=== PATIENT | female | born 1980 | race Caucasian/White ===

== ENCOUNTER 2024-05-16 18:16 | Observation (INO) ==
--- NOTE | 2024-05-16 18:22 | ED Triage Note ---
Date of Service May 16, 2024 Provider in Triage Author: Salas Fang History of Present Illness This patient was briefly evaluated while in triage. An abbreviated physical exam was performed. This patient is a 43-year-old Female who presents to the ED for evaluation called back to ED by ED pharmacist for urine culture growing Pseudomonas, resistant to PO medications, for consideration of IV antibiotics. hx of paraplegia, has indwelling catheter Was seen in the ED 2-3 days ago, catheter changed in ED and again at home by home care. Functioning properly. Denies fever/chills, n/v, malaise, abdominal/flank pain continues to complain of nerve pain Physical Exam GENERAL: NAD in wheelchair, tachycardic CARDIOVASCULAR: tachy in 120s RESPIRATORY: CTA ABDOMEN: BS x 4. Nontender to palpation. Initial orders for labs and / or imaging were placed and patient was placed in the waiting area until a bed is available. Please see further documentation for the full ED course.
[2024-05-16 19:23] LABS: Basophils # (auto) 0.03 K/uL (0.00-0.20); Basophils % (auto) 0.4 %; Eosinophils # (auto) 0.13 K/uL (0.00-0.50); Eosinophils % (auto) 1.6 %; Hematocrit (blood only) 41.4 % (37.0-47.0); Hemoglobin 12.9 g/dl (12.0-16.0); Immature Granulocytes # (auto) 0.03 K/uL (0.01-0.20); Immature Granulocytes % (auto) 0.4 %; Lymphocytes # (auto) 1.97 K/uL (1.20-3.40); Lymphocytes % (auto) 23.8 %; Mean Corpuscular Hemoglobin 26.8 pg (25.0-34.0); Mean Corpuscular Hgb Conc 31.2 g/dL (32.0-36.0); Mean Corpuscular Volume 86.1 fL (80.0-100.0); Mean Platelet Volume 9.8 fL (9.4-12.4); Monocytes # (auto) 0.55 K/uL (0.11-0.59); Monocytes % (auto) 6.6 %; Neutrophils # (auto) 5.58 K/uL (1.40-6.50); Neutrophils % (auto) 67.2 %; Platelet Count 419 K/uL (130-400); RDW Coefficient of Variation 15.9 % (11.5-14.5); RDW Standard Deviation 50.1 fL (36.4-46.3); Red Blood Count 4.81 M/uL (4.20-5.40); White Blood Count 8.29 K/ul (4.8-10.8)
[2024-05-16 19:31] LABS: Alanine Aminotransferase 12 U/L (7-52); Albumin Globulin Ratio 1.1 (0.9-2); Albumin Level 4.5 gm/dl (3.4-5.0); Alkaline Phosphatase 85 U/L (34-104); Anion Gap 7 (3-11); Aspartate Aminotransferase 16 U/L (13-39); BUN Creatinine Ratio 23.1 (10-20); Bilirubin,Total 0.2 mg/dl (0.2-1.0); Blood Urea Nitrogen 12 mg/dl (6-23); Calcium 9.9 mg/dl (8.6-10.3); Carbon Dioxide 29 mmol/L (21-32); Chloride 101 mmol/L (98-107); Est GFR (African American) 137.5 ml/min; Est GFR (Non-African American) 118.7 ml/min; Glucose 101 mg/dl (70-99(Fasting)); Potassium 4.1 mmol/L (3.5-5.1); Sodium 137 mmol/L (136-145); Total Protein 8.5 gm/dl (6.0-8.3)
[2024-05-16] MEDS: CEFEPIME 2,000 MG/20 ML VIAL IV STA (19:58)
[2024-05-16] MEDS: SODIUM CHLORIDE 0.9% 1,000 ML IV ONE (19:58)
[2024-05-16 20:18] LABS: Appearance Urine Clear (Clear); Bacteria Urine Automated 2+ (None Seen); Bilirubin Urine Negative (Negative); Blood Urine Negative (Negative); Cast Urine Automated 0-2 /lpf (0-2); Color Urine Yellow; Epithelial Cell Urine Auto 0-2 /hpf (0-2); Glucose Urine UA Negative (Negative); Ketones Urine Negative (Negative); Leukocyte Esterase Urine 2+ (Negative); Nitrite Urine Positive (Negative); Protein Urine Negative (Negative); RBC Urine Automated 0-2 /hpf (0-2); Specific Gravity Urine 1.008 (1.000-1.030); Urobilinogen Urine Negative (Negative)
--- NOTE | 2024-05-16 20:30 | Emergency Department Note ---
Impression & Plan Complicated urinary tract infection ED Provider Note HISTORY OF PRESENT ILLNESS: Patient is a 43-year-old female presenting with urinary tract infection. Patient was seen in the emergency department a few days ago and was diagnosed with urinary tract infection. She grew Pseudomonas aeruginosa and her urine culture that was resistant to the oral antibiotic that she was discharged on from her visit. She was called and referred back to the emergency department. Patient reports she has been having subjective chills at home and feeling generally unwell. Reports her [place] catheter was changed during her last ER visit. She denies any abdominal pain. Denies any nausea or vomiting. ROS: as above PHYSICAL EXAM: Constitutional: Patient appears in no acute distress. HENT: Head: Normocephalic and atraumatic. Eyes: EOMI, PERRL Mouth/Throat: Mucous membranes moist. Neck: Trachea midline. Neck supple. Cardiovascular: Tachycardic with regular rhythm. No murmurs, rubs or gallops. Intact distal pulses. Pulmonary/Chest: No respiratory distress. Breath sounds clear and equal bilaterally. No wheezes or rales. Abdominal: Abdomen soft, no tenderness, rebound or guarding. Musculoskeletal: No edema, tenderness or deformity noted. Skin: Warm and dry. No rash, erythema, pallor or cyanosis Psychiatric: Appropriate mood and affect for situation. Neurological: Alert and keenly responsive. CN II-XII grossly intact MDM: - Vitals signs showed tachycardia. - History obtained via patient. History as above. - Chronic conditions affecting care: paraplegia - Differential diagnoses include, but are not limited to: complicated UTI; urinary obstruction; sepsis - Order placed for continuous cardiac monitoring. At this time, monitor showed rate of 124 bpm with normal sinus rhythm, per my interpretation. - External medical records reviewed. Urinary culture dated 05/13/2024 was reviewed. Patient grew Pseudomonas aeruginosa that was resistant to ciprofloxacin and levofloxacin. Sensitive to cefepime. - Laboratory workup interpreted by myself showed normal WBC; normal lactate; negative procalcitonin; stable electrolytes - UA shows evidence of infection - Patient given 2g IV cefepime and 1L NS in ER. - Discussion was had with classification case manager about patient's case and need for admission - Hospitalist consulted for admission - Patient admitted to [facility] for further evaluation and management. ASSESSMENT AND PLAN: Diagnosis: complicated UTI Plan: admit Past Med/Surg History Problem List (Updated 05/16/24 @ 21:24 by Tita Khan MD) Complicated urinary tract infection (Acute) UTI (urinary tract infection) (Acute) Chronic paraplegia (Acute) Numbness and tingling (Acute) Medical History IV drug abuse Surgical History No pertinent past surgical history Social History Smoking Status: Current every day smoker Tobacco Type: Cigarettes Hx Substance Use: Yes Non-Prescribed Medications: Heroin Non-Prescribed Medications Comment: fentanyl Preferred Language: Persian Feels Safe at Home: Yes Allergies Allergies Allergy/AdvReac Type Severity Reaction Status Date / Time No Known Allergies Allergy Unverified 05/16/24 20:25 Home Meds Home Medications Medication Instructions Recorded Confirmed Senna-S 3 tab PO BID 05/13/24 05/16/24 baclofen 20 mg tablet 20 mg PO QID 05/13/24 05/16/24 buprenorphine HCl 8 mg sublingual 8 mg sublingual TID 05/13/24 05/16/24 tablet cephalexin 500 mg capsule 500 mg PO TID 05/13/24 05/16/24 gabapentin 800 mg tablet 800 mg PO TID 05/13/24 05/16/24 lorazepam 0.5 mg tablet 0.5 mg PO .30 MIN BEFORE MRI 05/13/24 05/16/24 ondansetron 4 mg disintegrating 4 mg PO Q8H PRN n/v 05/13/24 05/16/24 tablet tramadol 100 mg tablet,extended 100 mg PO DAILY 05/13/24 05/16/24 release 24 hr baclofen 10 mg tablet 10 mg PO DAILY PRN increased spasm 05/16/24 05/16/24 cyanocobalamin (vitamin B-12) 1,000 mcg PO DAILY 05/16/24 05/16/24 1,000 mcg tablet (Vitamin B-12) Previous Rx's Medication Instructions Recorded cefdinir 300 mg capsule 300 mg PO BID 6 days #12 caps 05/13/24 Results & Data (ED) Vital Signs Vital Signs - 24 hr 05/16/24 18:20 05/16/24 20:17 Temperature 36.8 C Temperature Source Temporal Artery Scan Pulse Rate 124 H Pulse Rate [Finger] 129 H Pulse Rhythm Regular Pulse Strength Normal Respiratory Rate 20 18 Respiratory Effort / Characteristics Non-Labored Spontaneous Non-Labored Respiratory Depth Normal Normal Respiratory Pattern Regular Regular Blood Pressure 126/84 Blood Pressure [Right Arm] 116/75 Blood Pressure Mean 98 Blood Pressure Mean [Right Arm] 88 Blood Pressure Position Sitting Pulse Oximetry 97 100 Oxygen Delivery Method Room Air Sepsis Recent Fever Within 48 Hours No Sepsis New/Unexplained Change in Mental Status No Sepsis Action Taken by Nursing No Action Required Laboratory Data 05/16/24 18:59 05/16/24 18:59 Lab Results 05/16/24 05/16/24 05/16/24 Range/Units 18:59 19:54 20:06 WBC 8.29 (4.8-10.8) K/ul RBC 4.81 (4.20-5.40) M/uL Hgb 12.9 (12.0-16.0) g/dl Hct 41.4 (37.0-47.0) % MCV 86.1 (80.0-100.0) fL MCH 26.8 (25.0-34.0) pg MCHC 31.2 L (32.0-36.0) g/dL RDW Std Deviation 50.1 H (36.4-46.3) fL RDW Coeff of Paulo 15.9 H (11.5-14.5) % Plt Count 419 H (130-400) K/uL MPV 9.8 (9.4-12.4) fL Immature Gran % (Auto) 0.4 % Neut % (Auto) 67.2 % Lymph % (Auto) 23.8 % [place] % (Auto) 6.6 % Eos % (Auto) 1.6 % Baso % (Auto) 0.4 % Neut # (Auto) 5.58 (1.40-6.50) K/uL Lymph # (Auto) 1.97 (1.20-3.40) K/uL [place] # (Auto) 0.55 (0.11-0.59) K/uL Eos # (Auto) 0.13 (0.00-0.50) K/uL Baso # (Auto) 0.03 (0.00-0.20) K/uL Immature Gran # (Auto) 0.03 (0.01-0.20) K/uL Sodium 137 (136-145) mmol/L Potassium 4.1 (3.5-5.1) mmol/L Chloride 101 (98-107) mmol/L Carbon Dioxide 29 (21-32) mmol/L Anion Gap 7 (3-11) BUN 12 (6-23) mg/dl Creatinine 0.52 L (0.6-1.2) mg/dl Est Cr Clr Drug Dosing Not Reportable Est GFR ( Amer) 137.5 ml/min Est GFR (Non-Af Amer) 118.7 ml/min BUN/Creatinine Ratio 23.1 H (10-20) Glucose 101 H (70-99(Fasting)) mg/dl Lactate 1.2 1.6 (0.4-2.0) mmol/L Calcium 9.9 (8.6-10.3) mg/dl Total Bilirubin 0.2 (0.2-1.0) mg/dl AST 16 (13-39) U/L ALT 12 (7-52) U/L Alkaline Phosphatase 85 (34-104) U/L Total Protein 8.5 H (6.0-8.3) gm/dl Albumin 4.5 (3.4-5.0) gm/dl Globulin 4.0 (2.5-4.0) gm/dl Albumin/Globulin Ratio 1.1 (0.9-2) Procalcitonin < 0.02 (0-0.5) ng/ml Urine Color Yellow Urine Appearance Clear (Clear) Urine pH 8.0 H (4.5-7.5) Ur Specific [place] 1.008 (1.000-1.030) Urine Protein Negative (Negative) Urine Glucose (UA) Negative (Negative) Urine Ketones Negative (Negative) Urine Blood Negative (Negative) Urine Nitrite Positive A (Negative) Urine Bilirubin Negative (Negative) Urine Urobilinogen Negative (Negative) Ur Leukocyte Esterase 2+ H (Negative) Urine WBC (Auto) 11-20 H (0-5) /hpf Urine RBC (Auto) 0-2 (0-2) /hpf U Hyaline Cast (Auto) 0-2 (0-2) /lpf U Epithel Cells (Auto) 0-2 (0-2) /hpf Urine Bacteria (Auto) 2+ H (None Seen) Administered Medications Discontinued Medications Cefepime HCl (Maxipime) 2,000 mg in 20 mls @ 5 mls/min IV NOW STA; Protocol Stop: 05/16/24 19:50 Last Admin: 05/16/24 19:58 Dose: 5 mls/min Documented By: TIFFANIE Sodium Chloride (Nss) 1,000 mls @ 999 mls/hr IV .Q1H1M ONE Stop: 05/16/24 20:47 Last Infusion: 05/16/24 21:17 Dose: Infused Documented By: Admin: 05/16/24 19:58 Dose: 999 mls/hr Documented By: TIFFANIE Discharge Plan Visit Data Chief Complaint: Infection Stated Complaint: IV ANTIBIOTICS, HERE BEFORE THIS WEEK ED Provider: Tita Khan Discharge Problem: Complicated urinary tract infection Forms Stand Alone Forms: [facility] Prescriptions Prescriptions: No Action cyanocobalamin (vitamin B-12) [Vitamin B-12] 1,000 mcg Tablet 1,000 mcg PO DAILY baclofen 10 mg tablet 10 mg PO DAILY PRN (Reason: increased spasm) baclofen 20 mg tablet 20 mg PO QID lorazepam 0.5 mg tablet 0.5 mg PO .30 MIN BEFORE MRI gabapentin 800 mg tablet 800 mg PO TID cephalexin 500 mg capsule 500 mg PO TID ondansetron 4 mg tablet,disintegrating 4 mg PO Q8H PRN (Reason: n/v) buprenorphine HCl 8 mg tablet, sublingual 8 mg SUBLINGUAL TID tramadol 100 mg tablet extended release 24 hr 100 mg PO DAILY Rx Instructions: ordered 05/15/24 for 5 days Senna-S 3 tab PO BID cefdinir 300 mg capsule 300 mg PO BID 6 Days Qty: 12 0RF Referrals Referrals: Emiliano Marie [Primary Care Provider] -
--- NOTE | 2024-05-16 21:45 | History & Physical Report ---
Date of Service May 16, 2024 Assessment & Plan (1) Complicated urinary tract infection: (2) Chronic paraplegia: (3) Numbness and tingling: (4) Scarring of lung: (5) Pressure ulcer: Plan Complicated UTI - Patient sent home 05/13 on Cefdinir - Called back to ED 05/16 as culture results were positive for Pseudomonas Aeruginosa - Culture results showed resistance to Levofloxacin and Ciprofloxacin - Patient received dose of cefepime 2g IV in ED - Will continue cefepime 2g IV Q8h after admit - recommend PICC line placement for IV antibiotic regimen at home after discharge - CBC, BMP am labs - Consulted I&D for complicated infection and home osteomyelitis prophylaxis, appreciate recs Numbness and tingling/chronic paraplegia - patient reports burning sensation down her legs, worsened in the past 2.5 weeks - Patient reports worsened neuropathy after starting higher dose of Lyrica that has been discontinued - Continue patients Gabapentin 800mg PO TID - Consider additional agent such as Cymbalta to improve symptoms - CT of thoracic spine: T5-T8 nondiagnostic due to beam hardening artifact - MRI of thoracic spine non-diagnostic from T5-T8 due to extensive surgery and post-operative changes, no definite fluid collections noted Pressure Ulcer - Patient reports pressure wounds along tailbone and bottom - reports most ulcers have been improving - Consulted wound care nurse to evaluate and change dressings in the am Scarring of lung - CT and MRI spine showed scar-like density within right lower lobe - CXR: 13 mm RLL density - recommendation for 6 month follow-up CT to ensure stability/resolution History of Present Illness Primary Care Provider: Emiliano Ybarra 43 y/o F with a past medical history of chronic paraplegia after a fall with spinal fracture and osteomyelitis in T6-T7 s/p surgical intervention with removal of the affected vertebrae and prophylactic daily cephalexin 500mg PO TID for approximately 1 year arriving in the ED due to an ongoing UTI that was positive on culture for Pseudomonas aeruginosa. Patient was recently in the ED 05/13 due to the same UTI and was discharged on cefdinir antibiotic regimen. Patient was called back to the ED 05/16 when culture results were positive for Pseudomonas aeruginosa. Today the patient denies fevers, vomiting, flank pain, headache, chest pain/palpitations/tightness, shortness of breath, cough, wheeze, edema, and bleeding. The patient does endorse some chills and nausea that quickly resolved after ED arrival. The patient also endorses burning nerve pain down her legs and abdominal region since her surgery, exacerbated in the past 2.5 weeks that was being treated with Lyrica and Neurontin. Patient explains that she was on Lyrica 75 mg and had some benefit for her nerve pain, but after recently switching doses to 150 mg patient feels that nerve pain greatly worsened. Since this event patient's pcp has discontinued this medication, and patient is solely on the Neurontin 800 mg PO TID. This has offered some relief in patients burning nerve pain, but she still feels like the sensation has gradually been worsening. In the ED patient received Cefepime 2g IV, and will continue to receive this for coverage for her Pseudomonas infection. Allergies Allergy/AdvReac Type Severity Reaction Status Date / Time No Known Allergies Allergy Unverified 05/16/24 20:25 Home Medications Medication Instructions Recorded Confirmed Type Senna-S 3 tab PO BID 05/13/24 05/16/24 History baclofen 20 mg tablet 20 mg PO QID 05/13/24 05/16/24 History buprenorphine HCl 8 mg sublingual 8 mg sublingual TID 05/13/24 05/16/24 History tablet cefdinir 300 mg capsule 300 mg PO BID 6 days #12 caps 05/13/24 05/16/24 Rx cephalexin 500 mg capsule 500 mg PO TID 05/13/24 05/16/24 History gabapentin 800 mg tablet 800 mg PO TID 05/13/24 05/16/24 History lorazepam 0.5 mg tablet 0.5 mg PO .30 MIN BEFORE MRI 05/13/24 05/16/24 History ondansetron 4 mg disintegrating 4 mg PO Q8H PRN n/v 05/13/24 05/16/24 History tablet tramadol 100 mg tablet,extended 100 mg PO DAILY 05/13/24 05/16/24 History release 24 hr baclofen 10 mg tablet 10 mg PO DAILY PRN increased spasm 05/16/24 05/16/24 History cyanocobalamin (vitamin B-12) 1,000 mcg PO DAILY 05/16/24 05/16/24 History 1,000 mcg tablet (Vitamin B-12) Past Med/Surg History Problem List (Updated 05/17/24 @ 00:15 by Jerry Beltran DO) Pressure ulcer Scarring of lung Complicated urinary tract infection (Acute) UTI (urinary tract infection) (Acute) Chronic paraplegia (Acute) Numbness and tingling (Acute) Medical History IV drug abuse Surgical History No pertinent past surgical history Social History Smoking Status: Current every day smoker Tobacco Type: Cigarettes Cigarettes Per Day: 1/2 pack; Tobacco Cessation Education Requested by Patient: No Hx Alcohol Use: No Hx Substance Use: Yes (medical Marijuana) Non-Prescribed Medications: Heroin Non-Prescribed Medications Comment: fentanyl Preferred Language: Faroese Communication Ability: Effective Chemical Project Engineer Required: No Beliefs That Will Affect Care: None Current Living Situation: Significant Other Other Information That Helps Us Care for You: No Feels Safe at Home: Yes Safety Concerns: Feels Safe At This Time Assistive Devices: Denture - Upper, Slide Board and Wheelchair Physical Exam Physical Exam: General: patient resting comfortably, NAD, non-toxic in appearance, answers questions appropriately. Skin: warm, dry, intact HEENT: NC/AT, anicteric sclera, conjunctiva without injection, moist mucus membranes. Heart: +S1/S2, regular, no m/r/g Lungs: equal air entry bilaterally, no rales/rhonchi/wheezes Abd: +BS, soft, NT/ND Ext: warm, no clubbing/cyanosis or edema Neuro: nonfocal, speech intact, no facial droop, moving all extremities. Results & Data Results & Data Vital Signs (Past 12 Hours) Vital Signs Temp Pulse Pulse Resp BP BP Pulse Ox 05/16/24 20:17 129 H 18 116/75 100 05/16/24 18:20 36.8 C 124 H 20 126/84 97 O2 Del Method 05/16/24 20:17 05/16/24 18:20 Room Air Laboratory Results Laboratory Results WBC 8.29 K/ul (4.8-10.8) 05/16/24 18:59 RBC 4.81 M/uL (4.20-5.40) 05/16/24 18:59 Hgb 12.9 g/dl (12.0-16.0) 05/16/24 18:59 Hct 41.4 % (37.0-47.0) 05/16/24 18:59 MCV 86.1 fL (80.0-100.0) 05/16/24 18:59 MCH 26.8 pg (25.0-34.0) 05/16/24 18:59 MCHC 31.2 g/dL (32.0-36.0) L 05/16/24 18:59 RDW Std Deviation 50.1 fL (36.4-46.3) H 05/16/24 18:59 RDW Coeff of Paulo 15.9 % (11.5-14.5) H 05/16/24 18:59 Plt Count 419 K/uL (130-400) H 05/16/24 18:59 MPV 9.8 fL (9.4-12.4) 05/16/24 18:59 Immature Gran % (Auto) 0.4 % 05/16/24 18:59 Neut % (Auto) 67.2 % 05/16/24 18:59 Lymph % (Auto) 23.8 % 05/16/24 18:59 [place] % (Auto) 6.6 % 05/16/24 18:59 Eos % (Auto) 1.6 % 05/16/24 18:59 Baso % (Auto) 0.4 % 05/16/24 18:59 Neut # (Auto) 5.58 K/uL (1.40-6.50) 05/16/24 18:59 Lymph # (Auto) 1.97 K/uL (1.20-3.40) 05/16/24 18:59 [place] # (Auto) 0.55 K/uL (0.11-0.59) 05/16/24 18:59 Eos # (Auto) 0.13 K/uL (0.00-0.50) 05/16/24 18:59 Baso # (Auto) 0.03 K/uL (0.00-0.20) 05/16/24 18:59 Immature Gran # (Auto) 0.03 K/uL (0.01-0.20) 05/16/24 18:59 Sodium 137 mmol/L (136-145) 05/16/24 18:59 Potassium 4.1 mmol/L (3.5-5.1) 05/16/24 18:59 Chloride 101 mmol/L (98-107) 05/16/24 18:59 Carbon Dioxide 29 mmol/L (21-32) 05/16/24 18:59 Anion Gap 7 (3-11) 05/16/24 18:59 BUN 12 mg/dl (6-23) 05/16/24 18:59 Creatinine 0.52 mg/dl (0.6-1.2) L 05/16/24 18:59 Est Cr Clr Drug Dosing Not Reportable 05/16/24 18:59 Est GFR ( Amer) 137.5 ml/min 05/16/24 18:59 Est GFR (Non-Af Amer) 118.7 ml/min 05/16/24 18:59 BUN/Creatinine Ratio 23.1 (10-20) H 05/16/24 18:59 Glucose 101 mg/dl (70-99(Fasting)) H 05/16/24 18:59 Lactate 1.6 mmol/L (0.4-2.0) 05/16/24 19:54 Calcium 9.9 mg/dl (8.6-10.3) 05/16/24 18:59 Total Bilirubin 0.2 mg/dl (0.2-1.0) 05/16/24 18:59 AST 16 U/L (13-39) 05/16/24 18:59 ALT 12 U/L (7-52) 05/16/24 18:59 Alkaline Phosphatase 85 U/L (34-104) 05/16/24 18:59 Total Protein 8.5 gm/dl (6.0-8.3) H 05/16/24 18:59 Albumin 4.5 gm/dl (3.4-5.0) 05/16/24 18:59 Globulin 4.0 gm/dl (2.5-4.0) 05/16/24 18:59 Albumin/Globulin Ratio 1.1 (0.9-2) 05/16/24 18:59 Procalcitonin < 0.02 ng/ml (0-0.5) 05/16/24 19:54 Urine Color Yellow 05/16/24 20:06 Urine Appearance Clear (Clear) 05/16/24 20:06 Urine pH 8.0 (4.5-7.5) H 05/16/24 20:06 Ur Specific [place] 1.008 (1.000-1.030) 05/16/24 20:06 Urine Protein Negative (Negative) 05/16/24 20:06 Urine Glucose (UA) Negative (Negative) 05/16/24 20:06 Urine Ketones Negative (Negative) 05/16/24 20:06 Urine Blood Negative (Negative) 05/16/24 20:06 Urine Nitrite Positive (Negative) A 05/16/24 20:06 Urine Bilirubin Negative (Negative) 05/16/24 20:06 Urine Urobilinogen Negative (Negative) 05/16/24 20:06 Ur Leukocyte Esterase 2+ (Negative) H 05/16/24 20:06 Urine WBC (Auto) 11-20 /hpf (0-5) H 05/16/24 20:06 Urine RBC (Auto) 0-2 /hpf (0-2) 05/16/24 20:06 U Hyaline Cast (Auto) 0-2 /lpf (0-2) 05/16/24 20:06 U Epithel Cells (Auto) 0-2 /hpf (0-2) 05/16/24 20:06 Urine Bacteria (Auto) 2+ (None Seen) H 05/16/24 20:06 Diagnostic Findings 05/16/24 20:06 Urine Culture - Pending Urine,Indwelling Cath Code Status & VTE Plan Code Status Full Code VTE Prophylaxis Plan VTE Prophylaxis will be ordered: Yes Supervising Physician Co-Signing Physician Notes Attending addendum: I have physically seen this patient, have supervised the medical residents activities, and agree with the H&P unless as otherwise noted. Assessment and Plan: Complicated urinary tract infection- Patient was initially seen in the emergency department 05/13, was noted to have a UTI, and empirically discharged on cefdinir Urine culture is presently growing Pseudomonas aeruginosa that is fluoroquinolone resistant Admit on cefepime 2 g IV every 8 hours PICC line to continue home IV antibiotic therapy Consult infectious disease Chronic paraplegia/tingling- CT of thoracic spine of thoracic spine performed on 05/13 reviewed by the ED with her surgeon, and found to be acceptable Continue gabapentin 800 mg p.o. 3 times daily, baclofen 20 mg p.o. 4 times daily, buprenorphine 8 mg sublingual 3 times daily, Could consider the addition of Cymbalta/duloxetine Right lower lobe scar- Radiology recommends 6-month CT chest follow-up Resident Activity Tracking Resident Involvement: Resident Care Provided Care Provided: Adult Hospital Medicine (5) Pressure ulcer Laterality: unspecified laterality Pressure injury location: buttock Pressure injury stage: unspecified pressure injury stage Qualified Code(s): L89.309 - Pressure ulcer of unspecified buttock, unspecified stage
[2024-05-17] MEDS ORDERED: ACETAMINOPHEN 325 MG TAB PO PRN (01:17)
[2024-05-17] MEDS ORDERED: MELATONIN 3 MG TAB PO PRN (01:17)
[2024-05-17] MEDS ORDERED: POLYETHYLENE (MIRALAX) 17 GM PACK PO PRN (01:17)
[2024-05-17] MEDS ORDERED: BACLOFEN 10 MG TAB PO PRN (01:17)
[2024-05-17] MEDS: CEFEPIME 2,000 MG in SYRINGE 0 ML IV SCH (04:51)
[2024-05-17] MEDS: IBUPROFEN 600 MG TAB PO STA (05:08)
[2024-05-17] MEDS: GABAPENTIN 800 MG TAB PO SCH ×2 (06:39→12:31)
--- NOTE | 2024-05-17 06:39 | Billing Data ---
Date of Service May 17, 2024 Coding Level of Care Code 75424 INT INP/OBS CARE
[2024-05-17 06:47] LABS: Hematocrit (blood only) 35.7 % (37.0-47.0); Hemoglobin 11.5 g/dl (12.0-16.0); Mean Corpuscular Hemoglobin 27.1 pg (25.0-34.0); Mean Corpuscular Hgb Conc 32.2 g/dL (32.0-36.0); Mean Corpuscular Volume 84.2 fL (80.0-100.0); Mean Platelet Volume 9.7 fL (9.4-12.4); Platelet Count 348 K/uL (130-400); RDW Standard Deviation 49.5 fL (36.4-46.3); Red Blood Count 4.24 M/uL (4.20-5.40); White Blood Count 5.44 K/ul (4.8-10.8)
[2024-05-17 07:15] LABS: BUN Creatinine Ratio 18.6 (10-20); Creatinine Clr Calc Pharmacy 151.9 ml/min; Est GFR (African American) 146.4 ml/min; Est GFR (Non-African American) 126.3 ml/min; Potassium 3.8 mmol/L (3.5-5.1)
[2024-05-17] MEDS: MoRPHine SULFATE 2 MG/ML CARP IV STA (07:35)
[2024-05-17] MEDS: DOCUSATE SODIUM/SENNA 50/8.6MG TAB PO SCH (07:39)
[2024-05-17] MEDS: BACLOFEN 20 MG TAB PO SCH ×2 (07:39→12:31)
[2024-05-17] MEDS ORDERED: IBUPROFEN 600 MG TAB PO PRN (07:59)
[2024-05-17] MEDS: traMADol HCL 50 MG TABLET PO SCH (08:10)
[2024-05-17] MEDS: ONDANSETRON 4 MG OD TAB PO PRN (08:11)
[2024-05-17] MEDS: buprenorphine HCL 8 MG SUBL SL SCH (08:11)
[2024-05-17] MEDS: DULoxetine HCL 30 MG CAP PO SCH (08:29)
[2024-05-17] MEDS: MEROPENEM 500 MG in SYRINGE 0 ML IV SCH (09:33)
--- NOTE | 2024-05-17 10:55 | Infectious Disease Consult ---
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 R cipro, levo) Abx: Cefepime 05/16 - 05/17 Meropenem 05/17 - present Impression: 43 yo F with paraplegia after T6-7 osteomyelitis/discitis and T7-T8 epidural abscess with MSSA s/p surgical decompression and stabilization with hardware in place (04/06/23), s/p cefazolin, now on suppressive cephalexin 500 mg PO TID, chronic rivers who initially presented on 05/13 with complaint of nerve pain, L ri b discomfort, as well as chills, nausea, sweats. At that time, she was afebrile without leukocytosis, and UA with 21-50 WBCs. CXR showed no acute process. MRI thoracic spine w and wo contrast was difficult to interpret due to extensive hardware, but no significant acute surgical findings. Her rivers catheter was changed, and she was prescribed cefdinir for possible UTI and discharged. Her urine culture ended up growing Pseudomonas aeruginosa (R cipro and levo). She was advised to return to the ED for re-evaluation. She presented back to the ED on 05/16. Reported subjective chills, generally feeling unwell. Denied abdominal pain. On presentation, she was afebrile, HR 124. Labs showed WBC 8.29, UA wtih 11-20 WBCs. UCx and BCx sent. She was given cefepime, switched to meropenem on 05/17 because pt believed she was having side effects from the cefepime. Urine culture obtained in the setting of chronic rivers is difficult to interpret as it may represent colonization, particularly as pt was without fevers or leukocytosis, however with her chills, general malaise, reasonable to manage conservatively and treat for possible UTI. Unfortunately the Pseudomonas is resistant to oral options. Recommendations: -Will order a one time dose of aminoglycoside, which will remain in her urinary tract at high levels for several days to treat her for cystitis. Ordered tobramycin 390 mg x 1 (~7 mg/kg) -Suggest changing her rivers again, since it was last changed 05/13 prior to receiving directed therapy at the Pseudomonas. -Discontinued meropenem. Will sign off. Discussed with Dr. Buenrostro. Consultation Information This patient recommendation is based on a telemedicine consult request which was completed asynchronously through chart review and information provided by the primary physician. The patient was not seen or examined today. The evaluation is consultative in nature and all patient care and treatment decisions can either be accepted or rejected by the patient's primary hospital-based treating physician using their own independent medical judgment for their patient. Electrophysiology Technician contact information: Please call [facility] [phone]. (Phone Number For Physician Use Only) Time Spent Reviewing Chart: 31+ minutes History of Present Illness Reason for Consultation: osteomyelitis ppx, UTI Attending Physician: Virgilio Buenrostro MD History of Present Illness 43 yo F with paraplegia after T6-7 osteomyelitis/discitis and T7-T8 epidural abscess with MSSA s/p surgical decompression and stabilization with hardware in place (04/06/23), s/p cefazolin, now on suppressive cephalexin 500 mg PO TID, chronic rivers who initially presented on 05/13 with complaint of nerve pain, L r ib discomfort, as well as chills, nausea, sweats. At that time, she was afebrile without leukocytosis, and UA with 21-50 WBCs. CXR showed no acute process. MRI thoracic spine w and wo contrast was difficult to interpret due to extensive hardware, but no fracture or subluxation, no significant central canal narrowing seen. Evaluation of thoracic spinal cord from T5-T8 was near nondiagnostic. No definite fluid collections. [facility] [place] images and felt there was no significant acute surgical findings. Her rivers catheter was changed, and she was prescribed cefdinir for possible UTI and discharged. Her urine culture ended up growing Pseudomonas aeruginosa (R cipro and levo). She was advised to return to the ED for re-evaluation. She presented back to the ED on 05/16. Reported subjective chills, generally feeling unwell. Denied abdominal pain. On presentation, she was afebrile, HR 124. Labs showed WBC 8.29, UA wtih 11-20 WBCs. UCx and BCx sent. She was given cefepime, switched to meropenem on 05/17. Allergies Allergy/AdvReac Type Severity Reaction Status Date / Time No Known Allergies Allergy Unverified 05/16/24 20:25 Home Medications Medication Instructions Recorded Confirmed Type Senna-S 3 tab PO BID 05/13/24 05/16/24 History baclofen 20 mg tablet 20 mg PO QID 05/13/24 05/16/24 History buprenorphine HCl 8 mg sublingual 8 mg sublingual TID 05/13/24 05/16/24 History tablet cefdinir 300 mg capsule 300 mg PO BID 6 days #12 caps 05/13/24 05/16/24 Rx cephalexin 500 mg capsule 500 mg PO TID 05/13/24 05/16/24 History gabapentin 800 mg tablet 800 mg PO TID 05/13/24 05/16/24 History lorazepam 0.5 mg tablet 0.5 mg PO .30 MIN BEFORE MRI 05/13/24 05/16/24 History ondansetron 4 mg disintegrating 4 mg PO Q8H PRN n/v 05/13/24 05/16/24 History tablet tramadol 100 mg tablet,extended 100 mg PO DAILY 05/13/24 05/16/24 History release 24 hr baclofen 10 mg tablet 10 mg PO DAILY PRN increased spasm 05/16/24 05/16/24 History cyanocobalamin (vitamin B-12) 1,000 mcg PO DAILY 05/16/24 05/16/24 History 1,000 mcg tablet (Vitamin B-12) Patient History Medical History IV drug abuse Surgical History No pertinent past surgical history Social History Smoking Status: Current every day smoker Tobacco Type: Cigarettes Cigarettes Per Day: 1/2 pack; Tobacco Cessation Education Requested by Patient: No Hx Alcohol Use: No Hx Substance Use: Yes (medical Marijuana) Non-Prescribed Medications: Heroin Non-Prescribed Medications Comment: fentanyl Preferred Language: Taiwanese Communication Ability: Effective Appeals Court Associate Justice Required: No Beliefs That Will Affect Care: None Current Living Situation: Significant Other Other Information That Helps Us Care for You: No Feels Safe at Home: Yes Safety Concerns: Feels Safe At This Time Assistive Devices: Denture - Upper, Slide Board and Wheelchair Review of System Pt was not seen Physical Exam Physical Exam: Pt was not seen Results & Data Vital Signs (Past 12 Hours) Vital Signs Temp Pulse Resp BP Pulse Ox O2 Del Method 05/17/24 07:15 36.7 C 72 16 118/58 L 98 Room Air 05/17/24 02:02 36.8 C 93 H 18 115/73 99 Room Air 05/17/24 00:05 82 16 104/68 94 Room Air Laboratory Results Short CBC 05/16/24 05/17/24 Range/Units 18:59 06:19 WBC 8.29 5.44 (4.8-10.8) K/ul Hgb 12.9 11.5 L (12.0-16.0) g/dl Hct 41.4 35.7 L (37.0-47.0) % Plt Count 419 H 348 (130-400) K/uL BMP 05/16/24 05/17/24 18:59 06:19 Sodium 137 136 Potassium 4.1 3.8 Chloride 101 104 Carbon Dioxide 29 27 BUN 12 8 Creatinine 0.52 L 0.43 L Glucose 101 H 99 Calcium 9.9 9.0 Liver Function 05/16/24 Range/Units 18:59 Total Bilirubin 0.2 (0.2-1.0) mg/dl AST 16 (13-39) U/L ALT 12 (7-52) U/L Alkaline Phosphatase 85 (34-104) U/L Albumin 4.5 (3.4-5.0) gm/dl Urine 05/16/24 Range/Units 20:06 Urine Color Yellow Urine Appearance Clear (Clear) Urine pH 8.0 H (4.5-7.5) Ur Specific Temple 1.008 (1.000-1.030) Urine Protein Negative (Negative) Urine Glucose (UA) Negative (Negative) Medications Administered Current Inpatient Medications Acetaminophen (Acetaminophen 325 Mg Tab) 650 mg PO Q4H PRN PRN Reason: pain/fever Stop: 06/16/24 01:16 Baclofen (Baclofen 10 Mg Tab) 10 mg PO DAILY PRN PRN Reason: increased spasm Stop: 06/16/24 01:16 Baclofen (Baclofen 20 Mg Tab) 20 mg PO QID [facility] Stop: 06/16/24 08:59 Last Admin: 05/17/24 07:39 Dose: 20 mg Buprenorphine HCl (Buprenorphine Hcl 8 Mg Subl) 8 mg SL TID [facility] Stop: 06/16/24 08:59 Last Admin: 05/17/24 08:11 Dose: 8 mg Duloxetine HCl (Duloxetine Hcl 30 Mg Cap) 30 mg PO QAM [facility] Stop: 06/16/24 08:59 Last Admin: 05/17/24 08:29 Dose: Not Given Gabapentin (Gabapentin 800 Mg Tab) 800 mg PO TID [facility] Stop: 06/16/24 08:59 Last Admin: 05/17/24 06:39 Dose: 800 mg Meropenem 500 mg/ Syringe 10 mls @ 2 mls/min IV Q8H [facility]; Protocol Stop: 05/27/24 08:59 Last Admin: 05/17/24 09:33 Dose: 2 mls/min Ibuprofen (Ibuprofen 600 Mg Tab) 600 mg PO Q6H PRN PRN Reason: Pain Stop: 06/16/24 07:58 Melatonin (Melatonin 3 Mg Tab) 3 mg PO HS PRN PRN Reason: Insomnia Stop: 06/16/24 01:16 Ondansetron HCl (Ondansetron 4 Mg Od Tab) 4 mg PO Q8H PRN PRN Reason: n/v Stop: 06/16/24 01:16 Last Admin: 05/17/24 08:11 Dose: 4 mg Polyethylene Glycol (Polyethylene (Miralax) 17 Gm Pack) 17 gm PO DAILY PRN PRN Reason: Constipation Stop: 06/16/24 01:16 Senna/Docusate Sodium (Docusate Sodium/Senna 50/8.6mg Tab) 3 tab PO BID [facility] Stop: 06/16/24 08:59 Last Admin: 05/17/24 07:39 Dose: 3 tab Tramadol HCl (Tramadol Hcl 50 Mg Tablet) 50 mg PO BID [facility] Stop: 06/16/24 08:59 Last Admin: 05/17/24 08:10 Dose: 50 mg (1) UTI (urinary tract infection) Hematuria presence: without hematuria Urinary tract infection type: acute cystitis Qualified Code(s): N30.00 - Acute cystitis without hematuria
[2024-05-17] MEDS ORDERED: TOBRAMYCIN CONSULT ACTIVE PRN (11:19)
[2024-05-17] MEDS ORDERED: KETOROLAC 30 MG/ML VIAL IV PRN (11:25)
[2024-05-17] MEDS: KETOROLAC 30 MG/ML VIAL IV ONE (11:39)
[2024-05-17] MEDS ORDERED: Nursing to Pharmacy Communication SCH (12:15)
--- NOTE | 2024-05-17 13:04 | Hospitalist Progress Note ---
Date of Service May 17, 2024 Assessment & Plan (1) Complicated urinary tract infection: Plan: Pseudomonas previously isolated. She failed oral cefdinir treatment. She states she had an allergic reaction to cefepime. She is now on meropenem, day 1. Infectious disease has added 1 dose of tobramycin. Hopefully she can go home later this week and avoid long-term IV antibiotic therapy. (2) Chronic paraplegia: Plan: Bilateral lower extremities after previous T-spine injury and surgery. Supportive care (3) Numbness and tingling: Plan: Lower extremity neuropathic symptoms. She is intolerant of Cymbalta and hesitant to try any new medications because of her history of depression and bipolar disorder. She has a history of opioid dependence. Will use IV Toradol as needed for now (4) Scarring of lung: Plan: Known. Seen on chest x-ray (5) Pressure ulcer: Plan: Known. Local care Plan Hopeful discharge back to home later this week Admission and Anticipated Discharge Date Admission Date: May 16, 2024 Subjective Tearful. She failed outpatient treatment for catheter associated UTI. Urine cultures are growing Pseudomonas. She was discharged on May 13 with cefdinir. She developed side effects from cefepime that was started on admission here and is now on meropenem. Infectious diseases involved and has added 1 dose of intravenous tobramycin. Hopefully she can go home later this week after several days of treatment. She has a history of opioid dependence and is on Subutex. Will use Toradol IV as needed leg pain. Review of Systems 2 Review of Systems: Constitutionalno fever or chills ENTno blurred vision, no double vision, no epistaxis, no sore throat Respiratoryno cough, no wheezing, no shortness of breath Cardiacno palpitations, no chest pain, no syncope Estephanie nausea, vomiting, diarrhea, melena, hematochezia GUchronic [place] catheter in place. No hematuria Musculoskeletalchronic lower extremity paraplegia. No joint pain, no muscle tenderness Skinno bruising, no rashes, no pruritus Neurochronic lower extremity paraplegia. Neurogenic bladder. Psychtearful affect Physical Exam 2 Physical Exam: General-alert and oriented x3, no fever, no chills HEENT-head atraumatic and normocephalic, pupils equal and reactive to light, extraocular muscles intact Neck-no lymphadenopathy or thyromegaly, trachea midline Chest-clear to auscultation. No rales, wheezing or rhonchi Cardiac-regular rate and rhythm, normal S1 and S2 Abdomen-normal bowel sounds, no hepatosplenomegaly GUFoley catheter in place. No hematuria Extremities-no cyanosis, clubbing, or edema Neuro-cranial nerves II through XII intact, bilateral lower extremity paraplegia. Psych-anxious, tearful affect Results & Data Results & Data Vital Signs (Past 12 Hours) Vital Signs Temp Pulse Resp BP Pulse Ox O2 Del Method 05/17/24 07:15 36.7 C 72 16 118/58 L 98 Room Air 05/17/24 02:02 36.8 C 93 H 18 115/73 99 Room Air Laboratory Results 05/17/24 06:19 05/17/24 06:19 PG Care Time/CCT Total # of Minutes Spent Total Time Spent with Patient: Total time spent is greater than 50% in coordination of care (as documented) at patient's floor/unit and/or counseling patient: Coding Level of Care Code 51477 SUB INP/OBS CARE 3/50MIN Diagnoses Complicated urinary tract infection N39.0 Chronic paraplegia G82.20 Numbness and tingling R20.0; R20.2 Scarring of lung J98.4 Pressure injury of skin of buttock, unspecified injury stage, unspecified laterality L89.309 Pressure injury location: buttock Pressure injury stage: unspecified pressure injury stage Laterality: unspecified laterality (5) Pressure ulcer Pressure injury location: buttock Pressure injury stage: unspecified pressure injury stage Laterality: unspecified laterality Qualified Code(s): L89.309 - Pressure ulcer of unspecified buttock, unspecified stage
[2024-05-17] MEDS: DEXTROSE 5% IV ONE (13:20)
[2024-05-17] MEDS: TOBRAMYCIN SULFATE IV ONE (13:20)
[2024-05-17] MEDS: LORazepam 1 MG TAB PO PRN (19:25)
[2024-05-17 20:08] VITALS: O2SAT 98
[2024-05-18 07:09] LABS: Basophils # (auto) 0.04 K/uL (0.00-0.20); Basophils % (auto) 0.9 %; Eosinophils # (auto) 0.12 K/uL (0.00-0.50); Eosinophils % (auto) 2.6 %; Hematocrit (blood only) 39.2 % (37.0-47.0); Hemoglobin 12.1 g/dl (12.0-16.0); Immature Granulocytes # (auto) 0.05 K/uL (0.01-0.20); Immature Granulocytes % (auto) 1.1 %; Lymphocytes # (auto) 1.62 K/uL (1.20-3.40); Lymphocytes % (auto) 35.5 %; Mean Corpuscular Hemoglobin 26.8 pg (25.0-34.0); Mean Corpuscular Hgb Conc 30.9 g/dL (32.0-36.0); Mean Corpuscular Volume 86.7 fL (80.0-100.0); Mean Platelet Volume 9.4 fL (9.4-12.4); Monocytes # (auto) 0.52 K/uL (0.11-0.59); Monocytes % (auto) 11.4 %; Neutrophils # (auto) 2.21 K/uL (1.40-6.50); Neutrophils % (auto) 48.5 %; Platelet Count 329 K/uL (130-400); RDW Coefficient of Variation 16.2 % (11.5-14.5); RDW Standard Deviation 51.4 fL (36.4-46.3); Red Blood Count 4.52 M/uL (4.20-5.40); White Blood Count 4.56 K/ul (4.8-10.8)
[2024-05-18 07:38] LABS: Calcium 8.9 mg/dl (8.6-10.3); Potassium 4.2 mmol/L (3.5-5.1)
[2024-05-18 07:44] LABS: BUN Creatinine Ratio 22.2 (10-20); Est GFR (African American) 135.8 ml/min; Est GFR (Non-African American) 117.2 ml/min
[2024-05-18 08:19] VITALS: BP 110/54; RESP 16; TEMP 98.1
--- NOTE | 2024-05-18 12:17 | Discharge Summary ---
Discharge Summary Date of Service May 18, 2024 Principal Dx & Hospital Course #1 = Principal Diagnosis (1) Complicated urinary tract infection: Pseudomonas previously isolated. She failed oral cefdinir treatment. She states she had an allergic reaction to cefepime. Infectious disease consultation appreciated. She has received tobramycin which should last in her system for several days. Meropenem has been discontinued. (2) Chronic paraplegia: Bilateral lower extremities after previous T-spine injury and surgery. Supportive care (3) Numbness and tingling: Lower extremity neuropathic symptoms. She is intolerant of Cymbalta and hesitant to try any new medications because of her history of depression and bipolar disorder. She has a history of opioid dependence. Treated with intravenous Toradol as needed while hospitalized (4) Scarring of lung: Known. Seen on chest x-ray (5) Pressure ulcer: Known. Local care (6) Anxiety state: Ativan as needed has helped. Will continue for short period of time at discharge Plan Home today, May 18 Admission HPI Per Admitting Provider Sona Ybarra 43 y/o F with a past medical history of chronic paraplegia after a fall with spinal fracture and osteomyelitis in T6-T7 s/p surgical intervention with removal of the affected vertebrae and prophylactic daily cephalexin 500mg PO TID for approximately 1 year arriving in the ED due to an ongoing UTI that was positive on culture for Pseudomonas aeruginosa. Patient was recently in the ED 05/13 due to the same UTI and was discharged on cefdinir antibiotic regimen. Patient was called back to the ED 05/16 when culture results were positive for Pseudomonas aeruginosa. Today the patient denies fevers, vomiting, flank pain, headache, chest pain/palpitations/tightness, shortness of breath, cough, wheeze, edema, and bleeding. The patient does endorse some chills and nausea that quickly resolved after ED arrival. The patient also endorses burning nerve pain down her legs and abdominal region since her surgery, exacerbated in the past 2.5 weeks that was being treated with Lyrica and Neurontin. Patient explains that she was on Lyrica 75 mg and had some benefit for her nerve pain, but after recently switching doses to 150 mg patient feels that nerve pain greatly worsened. Since this event patient's pcp has discontinued this medication, and patient is solely on the Neurontin 800 mg PO TID. This has offered some relief in patients burning nerve pain, but she still feels like the sensation has gradually been worsening. In the ED patient received Cefepime 2g IV, and will continue to receive this for coverage for her Pseudomonas infection. Discharge Exam General-alert and oriented x3, no fever, no chills HEENT-head atraumatic and normocephalic, pupils equal and reactive to light, extraocular muscles intact Neck-no lymphadenopathy or thyromegaly, trachea midline Chest-clear to auscultation. No rales, wheezing or rhonchi Cardiac-regular rate and rhythm, normal S1 and S2 Abdomen-normal bowel sounds, no hepatosplenomegaly GUFoley catheter in place. No hematuria Extremities-no cyanosis, clubbing, or edema Neuro-cranial nerves II through XII intact, bilateral lower extremity paraplegia. Psych-anxious, tearful affect Discharge Plan Discharge Items Patient Disposition: Home - Self-Care Reason For Visit: UTI Discharge Diagnosis: Pseudomonal UTI. Exacerbation of chronic lower extremity peripheral neuropathy Activity: Resume your previous activity Non-emergency contact: Primary Care Provider Call non-emergency contact if: you have any medication questions and your symptoms worsen Follow-up/Referrals: Emiliano Marie [Primary Care Provider] - Diet: Regular Addtl Attending Provider Instructions: Use Ativan as needed for anxiety. A prescription has been sent to [facility] in [place] Pending Studies at Discharge: No Stand-Alone Forms: [facility], Smoking Cessation Medications and DC Order Prescriptions: New lorazepam [Ativan] 0.5 mg tablet 0.5 mg PO Q8H PRN (Reason: anxiety) Qty: 14 0RF Continued cyanocobalamin (vitamin B-12) [Vitamin B-12] 1,000 mcg Tablet 1,000 mcg PO DAILY baclofen 10 mg tablet 10 mg PO DAILY PRN (Reason: increased spasm) baclofen 20 mg tablet 20 mg PO QID lorazepam 0.5 mg tablet 0.5 mg PO .30 MIN BEFORE MRI gabapentin 800 mg tablet 800 mg PO TID ondansetron 4 mg tablet,disintegrating 4 mg PO Q8H PRN (Reason: n/v) buprenorphine HCl 8 mg tablet, sublingual 8 mg SUBLINGUAL TID tramadol 100 mg tablet extended release 24 hr 100 mg PO DAILY Rx Instructions: ordered 05/15/24 for 5 days Senna-S 3 tab PO BID Discontinued cephalexin 500 mg capsule 500 mg PO TID cefdinir 300 mg capsule 300 mg PO BID 6 Days Qty: 12 0RF Discharge Orders: Discharge Order (Routine); Ordered 05/18/24 Ordered By: Virgilio Buenrostro Admission Data Admit Date/Time: 05/16/24 23:26 Attending Provider: Virgilio Buenrostro Admit Provider: Jerry Beltran Primary Care Provider: Emiliano Marie Other Providers: [facility] Stay Data Consultations 05/16/24 20:51 ED Decision to Admit Stat 05/17/24 01:17 Consult Infectious Diseases Routine Pending Results Patient Have Any Pending Studies at Discharge: No Discharge Instructions Given to Patient (Per Discharging Provider) Use Ativan as needed for anxiety. A prescription has been sent to [facility] in [place] Total Time Total Time Spent Total Time Spent (In Minutes): 50 minutes Coding Level of Care Code 76694 INP/OBS DISCH >30 MIN Diagnoses Complicated urinary tract infection N39.0 Chronic paraplegia G82.20 Numbness and tingling R20.0; R20.2 Scarring of lung J98.4 Pressure injury of skin of buttock, unspecified injury stage, unspecified laterality L89.309 Pressure injury location: buttock Pressure injury stage: unspecified pressure injury stage Laterality: unspecified laterality Anxiety state F41.1
[2024-05-18 13:15] VITALS: PULSE 78
--- NOTE | 2024-05-21 21:58 | Coding Query ---
CODING QUERY To promote full compliance with coding requirements relating to patient care, provider participation is requested in all cases of invoice coder uncertainty. Please assist us with the question(s) below: Coding Question(s): Pt was noted to have chronic indwelling rivers catheter with recurrent UTI's. Please select the source of infection(UTI):Patient was called back to the ED 05/16 when culture results were positive for Pseudomonas aeruginosa. Physician's Response(s): _x__UTI d/t indwelling Rivers Catheter ___UTI, not related to indwelling Rivers Catheter ___Unable to determine Thank you Nayla HATFIELD
--- NOTE | 2024-05-21 22:06 | Coding Query ---
PRESSURE ULCER DOCUMENTATION To promote full compliance with coding requirements relating to patient care, physician participation is requested in all cases of label coder uncertainty. Please assist us with the question(s) below: Please specify the known or suspected type by placing an "X" within the parenthesis (x). -Pressure Ulcer of the (Left Ischium ) Full thickness If possible, please check the box that provides the specific severity of the ulcer: ___Stage I ___Stage II ___Stage III ___Stage IV ___Unstageable ___Other ___Unable to determine Pressure Ulcer (Right Ischium)Full thickness ___Stage I ___Stage II ___Stage III ___Stage IV ___Unstageable ___Other ___Unable to determine Pressure Ulcer (Sacrum) Full Thickness ___Stage I ___Stage II ___Stage III ___Stage IV ___Unstageable ___Other ___Unable to determine Thank you Nayla HATFILED
== END 2024-05-18 15:43 | disposition home or self-care (01) ==
LOC: ED 18:16 → EDINP 23:26 → INTOOBSV 23:26 → SUATTDRO 23:26 → 3W 05-17 01:33

== ENCOUNTER 2024-10-03 21:41 | Observation (INO) ==
[2024-10-04 00:38] LABS: Base Excess VBG -0.8 mEq/L; HCO3 VBG 24 mmol/L; Oxygen Saturation VBG 88.3 %; PCO2 VBG 41 mmHg (38-50); PO2 VBG 57 mmHg; pH VBG 7.38 (7.36-7.41)
[2024-10-04 00:42] LABS: Basophils # (auto) 0.02 K/uL (0.00-0.20); Basophils % (auto) 0.4 %; Eosinophils # (auto) 0.08 K/uL (0.00-0.50); Eosinophils % (auto) 1.5 %; Hematocrit (blood only) 38.6 % (37.0-47.0); Hemoglobin 12.9 g/dl (12.0-16.0); Immature Granulocytes # (auto) 0.01 K/uL (0.01-0.20); Immature Granulocytes % (auto) 0.2 %; Lymphocytes # (auto) 1.43 K/uL (1.20-3.40); Lymphocytes % (auto) 26.5 %; Mean Corpuscular Hemoglobin 29.9 pg (25.0-34.0); Mean Corpuscular Hgb Conc 33.4 g/dL (32.0-36.0); Mean Corpuscular Volume 89.4 fL (80.0-100.0); Mean Platelet Volume 9.8 fL (9.4-12.4); Monocytes # (auto) 0.42 K/uL (0.11-0.59); Monocytes % (auto) 7.8 %; Neutrophils # (auto) 3.43 K/uL (1.40-6.50); Neutrophils % (auto) 63.6 %; Platelet Count 286 K/uL (130-400); RDW Coefficient of Variation 13.3 % (11.5-14.5); Red Blood Count 4.32 M/uL (4.20-5.40); White Blood Count 5.39 K/ul (4.8-10.8)
[2024-10-04] MEDS: levoFLOXacin/D5W 750 MG/150 ML BAG IV STA (00:53)
[2024-10-04] MEDS: SODIUM CHLORIDE 0.9% 1,000 ML IV SCH ×2 (00:53→05:28)
[2024-10-04] MEDS: HYDROCODONE/ACETAMOPHEN 5/325MG TAB PO STA (00:53)
[2024-10-04] MEDS: CEFEPIME 2000MG 2,000 MG/20 ML SYR IV STA (00:53)
[2024-10-04 01:00] LABS: Alanine Aminotransferase 16 U/L (7-52); Albumin Level 4.2 gm/dl (3.4-5.0); Alkaline Phosphatase 56 U/L (34-104); Anion Gap 7 (3-11); Aspartate Aminotransferase 15 U/L (13-39); BUN Creatinine Ratio 15.4 (10-20); Bilirubin Direct 0.1 mg/dl (0-0.2); Bilirubin,Total 0.2 mg/dl (0.2-1.0); Blood Urea Nitrogen 8 mg/dl (6-23); Calcium 8.9 mg/dl (8.6-10.3); Carbon Dioxide 23 mmol/L (21-32); Chloride 107 mmol/L (98-107); Glucose 94 mg/dl (70-99(Fasting)); Magnesium 1.9 mg/dl (1.7-2.4); Potassium 4.3 mmol/L (3.5-5.1); Sodium 137 mmol/L (136-145); Total Protein 7.3 gm/dl (6.0-8.3)
--- NOTE | 2024-10-04 01:02 | Emergency Department Note ---
Impression & Plan Complicated urinary tract infection, Anxiety state, Paraplegia ED Provider Note CHIEF COMPLAINT: UTI, indwelling Fulton catheter, acute on chronic pain. HISTORY OF PRESENT ILLNESS: This 43-year-old female patient past medical history of traumatic spinal cord injury, thoracic osteomyelitis, paraplegia, indwelling Fulton catheter with recurrent infections, chronic pain syndrome presents to the emergency department with complaints of exacerbation of chronic bilateral lower extremity pain. She states her pain presents in this fashion when she has a UTI. She was recently treated on September 29 at [facility]. A urine culture was performed. Patient was given a Cipro prescription at that visit. Fulton catheter was changed. patient had 2 to 3 days of improving symptoms, then was feeling much worse. She states her pain was exacerbated in the thighs primarily which is her sign of a UTI. She states she also had a foul odor to the urine. Patient was seen by her PCP and Urine culture was reviewed. Antibiotic was switched to Bactrim at that time. Patient mentions that she has grown out Pseudomonas in the past. Patient presents to our department because the pain has not improved. She does take 800 mg of gabapentin 3 times a day and Advil every 6 hours. patient is not having any vomiting, fevers. REVIEW OF SYSTEMS: A review of systems was performed with positives and pertinent negatives listed in the history of present illness. 10 systems were reviewed and are otherwise negative. ALLERGIES: see below MEDICATIONS: see below PMH: see below SOCIAL HISTORY: see below DDx: Dehydration, UTI, electrolyte abnormality, pneumonia, viral syndrome, acute on chronic pain among others. PHYSICAL EXAM: Vital signs reviewed. General: Tearful and anxious 43-year-old female lying in the bed. HEENT: No scleral icterus, PERRLA, neck supple. Atraumatic. Cardiovascular: Regular rate and rhythm, no extra sounds. Pulmonary: Clear to auscultation bilaterally, normal work of breathing. Abdomen: Soft, Mildly distended, positive tympany, positive bowel sounds. Urinary catheter in place. Musculoskeletal: Atraumatic, Bilateral lower extremity atrophy. Neurologic: Patient awake alert and oriented x 3, speech is clear. weak Dorsiflexion of the left foot, able to wiggle at the left toes minimally. No movement to the right lower extremity. Skin: Warm, dry, no rash EMERGENCY DEPARTMENT COURSE/MDM: This patient was evaluated and appeared to be in no significant distress, but patient is anxious appearing and tearful. UA was obtained and will be sent for culture. Records from outside hospital obtained and reveal a urine culture positive for stenotrophomonas, sensitive to Levaquin, Bactrim and minocycline. IV access had been obtained and laboratory work was drawn. The patient was medicated with 750 mg of IV Levaquin. Shortly after initiating the antibiotic, the patient became very anxious and tearful. She insisted that the nurse stop the infusion. She stated that her lower extremity/nerve pain had become much worse. She knows that her infections are not properly treated based on this pain distribution "as soon as the antibiotics start flowing" through her veins. The patient was informed that there are limited choices for antibiotic coverage for this organism. She insisted on tobramycin that had previously been prescribed for Pseudomonas infection. Patient also states she had an allergic reaction to oral cefdinir in the past. The patient was given 1 mg of IV Ativan as well as 1 Wilson tablet. Given the complexity of the patient's situation, the urine culture and sensitivities, the patient was discussed with Dr. Kam of the hospitalist service who will evaluate the patient for admission and further management. Patient is aware of the plan and agrees. MONITORING: An order for cardiac monitoring was placed and the patient is noted to be in a normal sinus rhythm 82 beats per minute. RADIOLOGY: Chest x-ray to my interpretation reveals no focal lung consolidation or failure, otherwise see below. IMPRESSION: 1. No acute abnormality detected. 2. Stable nodule is noted in the right lower zone as seen in the previous radiograph. No significant interval change. Rest of the lung leon do not reveal any obvious abnormality. No significant interval new finding is noted. EKG: To my interpretation reveals a normal sinus rhythm at 68 bpm, short TX interval. QTc of 429. No PVC, no PAC. DISPOSITION: Admission Past Med/Surg History Problem List (Updated 10/05/24 @ 02:31 by Violet Sosa MD) History of intravenous drug abuse Paraplegia (Acute) Anxiety state (Acute) Complicated urinary tract infection (Acute) Medical History Pressure ulcer Scarring of lung IV drug abuse Surgical History No pertinent past surgical history Social History Smoking Status: Light tobacco smoker Tobacco Type: Cigarettes Cigarettes Per Day: 1/2 pack; Second Hand Exposure: No; Do You Dip or Chew Tobacco: No; Hx Alcohol Use: No Hx Substance Use: Yes Non-Prescribed Medications: Heroin Non-Prescribed Medications Comment: fentanyl Substance Use Type Other:: medical marijuana Preferred Language: Spanish Communication Ability: Effective Coconut Jelly Roller Required: No Beliefs That Will Affect Care: None Current Living Situation: Family Feels Safe at Home: Yes Assistive Devices: Glasses, Slide Board and Wheelchair Allergies Allergies Allergy/AdvReac Type Severity Reaction Status Date / Time No Known Allergies Allergy Unverified 05/16/24 20:25 Home Meds Home Medications Medication Instructions Recorded Confirmed Senna-S 3 tab PO BID 05/13/24 05/16/24 lorazepam 0.5 mg tablet 0.5 mg PO .30 MIN BEFORE MRI 05/13/24 05/16/24 ondansetron 4 mg disintegrating 4 mg PO Q4 PRN n/v 05/13/24 10/04/24 tablet cyanocobalamin (vitamin B-12) 1,000 mcg PO DAILY 05/16/24 10/04/24 1,000 mcg tablet (Vitamin B-12) albuterol sulfate 90 mcg/actuation 1 puff inhalation Q4 PRN Shortness 10/04/24 10/04/24 aerosol inhaler Of Breath Or Wheezing baclofen 20 mg tablet 20 mg PO QID 10/04/24 10/04/24 buprenorphine HCl 8 mg sublingual 8 mg sublingual TID 10/04/24 10/04/24 tablet cephalexin 500 mg capsule 500 mg PO UD 10/04/24 10/04/24 gabapentin 300 mg capsule 800 mg PO TID 10/04/24 10/04/24 gabapentin 600 mg tablet 600 mg PO PM 10/04/24 10/04/24 sulfamethoxazole 800 1 tab PO BID 10/04/24 10/04/24 mg-trimethoprim 160 mg tablet Previous Rx's Medication Instructions Recorded lorazepam 0.5 mg tablet (Ativan) 0.5 mg PO Q8H PRN anxiety #14 tabs 05/18/24 levofloxacin 750 mg tablet 750 mg PO DAILY #10 tabs 10/04/24 Results & Data (ED) Vital Signs Vital Signs - 24 hr 10/04/24 02:30 10/04/24 02:34 10/04/24 03:00 Pulse Rate 79 Pulse Rate [Apical] 81 71 Respiratory Rate 16 16 Blood Pressure [Right Arm] 108/74 106/67 Blood Pressure Mean [Right Arm] 85 80 Pulse Oximetry 100 98 Oxygen Delivery Method Room Air Room Air Home Medications Current Medication List: was personally reviewed by me Laboratory Data Attestation: I reviewed the patient's lab results. 10/04/24 00:30 10/04/24 00:30 Lab Results 10/04/24 10/04/24 Range/Units 00:30 01:01 WBC 5.39 (4.8-10.8) K/ul RBC 4.32 (4.20-5.40) M/uL Hgb 12.9 (12.0-16.0) g/dl Hct 38.6 (37.0-47.0) % MCV 89.4 (80.0-100.0) fL MCH 29.9 (25.0-34.0) pg MCHC 33.4 (32.0-36.0) g/dL RDW Std Deviation 44.0 (36.4-46.3) fL RDW Coeff of Paulo 13.3 (11.5-14.5) % Plt Count 286 (130-400) K/uL MPV 9.8 (9.4-12.4) fL Immature Gran % (Auto) 0.2 % Neut % (Auto) 63.6 % Lymph % (Auto) 26.5 % [place] % (Auto) 7.8 % Eos % (Auto) 1.5 % Baso % (Auto) 0.4 % Neut # (Auto) 3.43 (1.40-6.50) K/uL Lymph # (Auto) 1.43 (1.20-3.40) K/uL [place] # (Auto) 0.42 (0.11-0.59) K/uL Eos # (Auto) 0.08 (0.00-0.50) K/uL Baso # (Auto) 0.02 (0.00-0.20) K/uL Immature Gran # (Auto) 0.01 (0.01-0.20) K/uL VBG pH 7.38 (7.36-7.41) VBG pCO2 41 (38-50) mmHg VBG pO2 57 mmHg VBG HCO3 24 mmol/L VBG O2 Saturation 88.3 % VBG Base Excess -0.8 mEq/L Sodium 137 (136-145) mmol/L Potassium 4.3 (3.5-5.1) mmol/L Chloride 107 (98-107) mmol/L Carbon Dioxide 23 (21-32) mmol/L Anion Gap 7 (3-11) BUN 8 (6-23) mg/dl Creatinine 0.52 L (0.6-1.2) mg/dl Est Cr Clr Drug Dosing Not Reportable eGFR 119.63 BUN/Creatinine Ratio 15.4 (10-20) Glucose 94 (70-99(Fasting)) mg/dl Lactate 1.0 (0.4-2.0) mmol/L Calcium 8.9 (8.6-10.3) mg/dl Magnesium 1.9 (1.7-2.4) mg/dl Total Bilirubin 0.2 (0.2-1.0) mg/dl Direct Bilirubin 0.1 (0-0.2) mg/dl AST 15 (13-39) U/L ALT 16 (7-52) U/L Alkaline Phosphatase 56 (34-104) U/L Total Protein 7.3 (6.0-8.3) gm/dl Albumin 4.2 (3.4-5.0) gm/dl Procalcitonin < 0.02 (0-0.5) ng/ml Urine Color Yellow Urine Appearance Clear (Clear) Urine pH 6.5 (4.5-7.5) Ur Specific [place] 1.013 (1.000-1.030) Urine Protein Trace H (Negative) Urine Glucose (UA) Negative (Negative) Urine Ketones Negative (Negative) Urine Blood Trace H (Negative) Urine Nitrite Negative (Negative) Urine Bilirubin Negative (Negative) Urine Urobilinogen Negative (Negative) Ur Leukocyte Esterase 2+ H (Negative) Urine WBC (Auto) 21-50 H (0-5) /hpf Urine RBC (Auto) 6-10 H (0-2) /hpf U Hyaline Cast (Auto) 3-5 H (0-2) /lpf U Epithel Cells (Auto) 0-2 (0-2) /hpf Urine Bacteria (Auto) None Seen (None Seen) Administered Medications Discontinued Medications Hydrocodone Bitart/Acetaminophen (Hydrocodone/Acetamophen 5/325mg Tab) 1 tab PO NOW STA Stop: 10/03/24 23:40 Last Admin: 10/04/24 00:53 Dose: 1 tab Documented By: HERMINIA Baclofen (Baclofen 20 Mg Tab) 20 mg PO QID CARLOS EDUARDO Stop: 11/03/24 08:59 Last Admin: 10/04/24 18:02 Dose: 20 mg Documented By: Admin: 10/04/24 12:32 Dose: 20 mg Documented By: Admin: 10/04/24 08:16 Dose: 20 mg Documented By: ALEJANDRA Buprenorphine HCl (Buprenorphine Hcl 8 Mg Subl) 8 mg SL TID CARLOS EDUARDO Stop: 11/03/24 08:59 Last Admin: 10/04/24 13:03 Dose: 8 mg Documented By: Admin: 10/04/24 08:13 Dose: 8 mg Documented By: ALEJANDRA Cephalexin HCl (Cephalexin 500 Mg Cap) 500 mg PO TID [facility]; Protocol Stop: 11/03/24 08:59 Last Admin: 10/04/24 08:18 Dose: 500 mg Documented By: ALEJANDRA Cephalexin HCl (Cephalexin 500 Mg Cap) 500 mg PO TID [facility] Stop: 11/03/24 13:59 Last Admin: 10/04/24 13:03 Dose: 500 mg Documented By: ALEJANDRA Diazepam (Diazepam 5 Mg Tablet) 5 mg PO NOW ONE Stop: 10/04/24 05:16 Last Admin: 10/04/24 05:29 Dose: 5 mg Documented By: Gabapentin (Gabapentin 400 Mg Cap) 800 mg PO TID CARLOS EDUARDO Stop: 11/03/24 08:59 Last Admin: 10/04/24 13:03 Dose: 800 mg Documented By: Admin: 10/04/24 08:16 Dose: 800 mg Documented By: ALEJANDRA Gabapentin (Gabapentin 600 Mg Tab) 600 mg PO DAILY@1700 CARLOS EDUARDO Stop: 11/03/24 16:59 Last Admin: 10/04/24 18:01 Dose: 600 mg Documented By: ALEJANDRA Hydromorphone HCl (Hydromorphone Inj 0.5 Mg/0.5 Ml Syr) 0.5 mg IV NOW STA Stop: 10/04/24 05:40 Last Admin: 10/04/24 06:20 Dose: 0.5 mg Documented By: Sodium Chloride (Nss) 1,000 mls @ 999 mls/hr IV .Q1H1M CARLOS EDUARDO Stop: 10/04/24 00:45 Last Infusion: 10/04/24 02:03 Dose: Infused Documented By: Admin: 10/04/24 00:53 Dose: 999 mls/hr Documented By: HERMINIA Cefepime HCl (Maxipime 2000mg) 2,000 mg in 20 mls @ 5 mls/min IV NOW STA; Protocol Stop: 10/03/24 23:41 Last Admin: 10/04/24 00:53 Dose: 5 mls/min Documented By: HERMINIA Levofloxacin/Dextrose (Levaquin/D5w) 750 mg in 150 mls @ 100 mls/hr IV NOW STA Stop: 10/04/24 01:57 Last Infusion: 10/04/24 02:46 Dose: Infused Documented By: Infusion: 10/04/24 01:25 Dose: 0 mls/hr Documented By: Admin: 10/04/24 00:53 Dose: 100 mls/hr Documented By: HERMINIA Trimethoprim/Sulfamethoxazole (320 mg/ Dextrose) 520 mls @ 346.667 mls/hr IV Q12H CARLOS EDUARDO Stop: 10/14/24 05:59 Last Infusion: 10/04/24 07:58 Dose: Infused Documented By: Infusion: 10/04/24 07:32 Dose: 0 mls/hr Documented By: Admin: 10/04/24 06:28 Dose: 346.7 mls/hr Documented By: Sodium Chloride (Nss) 1,000 mls @ 80 mls/hr IV .[id number] [facility] Stop: 10/05/24 04:01 Last Infusion: 10/04/24 17:02 Dose: Infused Documented By: Infusion: 10/04/24 09:28 Dose: 80 mls/hr Documented By: Admin: 10/04/24 05:28 Dose: 125 mls/hr Documented By: Ciprofloxacin (Cipro / D5w) 400 mg in 200 mls @ 100 mls/hr IV Q12H [facility]; Protocol Stop: 10/14/24 09:29 Last Infusion: 10/04/24 11:14 Dose: Infused Documented By: Admin: 10/04/24 10:23 Dose: 100 mls/hr Documented By: ALEJANDRA Tobramycin Sulfate 60 mg/ (Dextrose) 101.5 mls @ 100 mls/hr IV Q8H CARLOS EDUARDO Stop: 10/14/24 12:14 Last Admin: 10/04/24 12:52 Dose: Not Given Documented By: ALEJANDRA Ketorolac Tromethamine (Ketorolac 30 Mg/Ml Vial) 30 mg IV Q6H PRN PRN Reason: Pain Stop: 10/09/24 12:04 Last Admin: 10/04/24 14:06 Dose: 30 mg Documented By: ALEJANDRA Lorazepam (Lorazepam 2 Mg/1 Ml Vial) 1 mg IV NOW STA Stop: 10/04/24 01:27 Last Admin: 10/04/24 01:48 Dose: 1 mg Documented By: HERMINIA Lorazepam (Lorazepam 0.5 Mg Tab) 0.5 mg PO Q6H PRN PRN Reason: Anxiety Stop: 11/03/24 07:55 Last Admin: 10/04/24 08:13 Dose: 0.5 mg Documented By: ALEJANDRA Lorazepam (Lorazepam 2 Mg/1 Ml Vial) 0.5 mg IV Q6H PRN PRN Reason: Anxiety/Agitation Stop: 11/03/24 12:03 Last Admin: 10/04/24 12:30 Dose: 0.5 mg Documented By: ALEJANDRA Discharge Plan Visit Data Chief Complaint: Urinary Symptoms Stated Complaint: UTI PROBLEMS ED Provider: Voilet Sosa Discharge Problem: Complicated urinary tract infection, Anxiety state, Paraplegia Patient Disposition: Admitted As Inpatient Discharge Instructions Interventions: ED Discharge Assessment Last Done: 10/04/24 03:43
--- NOTE | 2024-10-04 01:32 | XRay Report ---
EXAM: XR chest 1V portable CLINICAL HISTORY: SEPSIS NOT PREG WTW TECHNIQUE: Radiograph of chest was acquired. COMPARISON: 13 May 2024. FINDINGS: Stable nodule is noted in the right lower zone as seen in the previous radiograph. No significant interval change. Rest of the lung leon do not reveal any obvious abnormality. No pleural effusion is detected. The cardio-mediastinal silhouette is within normal limits. No acute osseous abnormality. Transpedicular fixation devices are noted involving the thoracic vertebrae. IMPRESSION: 1. No acute abnormality detected. 2. Stable nodule is noted in the right lower zone as seen in the previous radiograph. No significant interval change. Rest of the lung leon do not reveal any obvious abnormality. No significant interval new finding is noted. Electronically signed by Wilian Lou 10-04-2024 01:32 AM
[2024-10-04 01:39] LABS: Appearance Urine Clear (Clear); Bacteria Urine Automated None Seen (None Seen); Bilirubin Urine Negative (Negative); Blood Urine Trace (Negative); Color Urine Yellow; Epithelial Cell Urine Auto 0-2 /hpf (0-2); Glucose Urine UA Negative (Negative); Ketones Urine Negative (Negative); Leukocyte Esterase Urine 2+ (Negative); Nitrite Urine Negative (Negative); Protein Urine Trace (Negative); Specific Gravity Urine 1.013 (1.000-1.030); Urobilinogen Urine Negative (Negative); WBC Urine Automated 21-50 /hpf (0-5); pH Urine 6.5 (4.5-7.5)
[2024-10-04] MEDS: LORazepam 2 MG/1 ML VIAL IV STA (01:48)
--- NOTE | 2024-10-04 03:08 | History & Physical Report ---
Date of Service October 04, 2024 Assessment & Plan (1) Complicated urinary tract infection: Plan: 43yo female with paraplegia, chronic indwelling Fulton presenting with stenotrophomonas UTI (culture from 09/29/24) - catheter associated infection. Patient is afebrile, HD stable and non-toxic in appearance. She is experiencing "nerve pain" which is common for her UTIs. Fulton has been changed. -Admit to medical -Follow culture sent from today -Bactrim IV -Tylenol PRN (2) Paraplegia: Plan: Patient is scheduled to see Neurology on 10/10/24. She has been experiencing more nerve discomfort but also notes that she is possibly regaining some function - thought possibly due to nerve regeneration in part. -Continue Baclofen -Continue Neurontin at home dose -Continue prophylactic Keflex 500mg po TID Plan History of IVDU -Continue Subutex 8mg TID F/E/N - NSS at 125mg/hr x 2L, electrolytes WNL, Regular diet as tolerated Ppx - low risk for DVT Code - Full Dispo - Admit to medical History of Present Illness Chief Complaint: nerve pain, UTI Primary Care Provider: Emiliano Portales Sona Ybarra is a 43yo female with history of Paraplegia, T6-T7 osteomyelitis and T7-T8 epidural abscess s/p surgical intervention with hardware in place and indwelling Fulton catheter presenting from home with several days of nerve pain and UTI. Patient reports the feeling of "nerve pain" worsening over the last several days. This pain is a pressure and tightness involving her entire paralyzed area - reports feeling of tightness in her mid-abdomen and upper back, lower back as well as tightness, burning and cold sensation in her legs bilaterally R > L. Patient typically experiences this quality of pain when she has a UTI. She was seen at [facility] on 09/29/24 with these complaints. She had a UA and culture performed which revealed moderate LE, 21 WBC and few bacteria - culture was POSITIVE for >100,000 CFU of Stenotrophomonas maltophilia which is susceptible to Levaquin/Minocycline and Bactrim. She was given a prescription for Ciprofloxacin which she was taking - reports initial improvement in her symptoms but then recurrence of her severe nerve pain. She did return to [facility] but left without being seen due to long wait times. She was seen by her PCP and her antibiotics were changed to Bactrim on 10/02/24. She reports taking several doses of the Bactrim but continued to have worsening of the nerve pain. Patient complaining of ongoing nerve pain as well as chills and some nausea. No additional complaints at this time. In the ER she is afebrile, HD stable ER Course: Ativan Levaquin Hydrocodone/Tylenol Cefepime NSS x 1L Allergies Allergy/AdvReac Type Severity Reaction Status Date / Time No Known Allergies Allergy Unverified 05/16/24 20:25 Home Medications Medication Instructions Recorded Confirmed Type Senna-S 3 tab PO BID 05/13/24 05/16/24 History lorazepam 0.5 mg tablet 0.5 mg PO .30 MIN BEFORE MRI 05/13/24 05/16/24 History ondansetron 4 mg disintegrating 4 mg PO Q4 PRN n/v 05/13/24 10/04/24 History tablet cyanocobalamin (vitamin B-12) 1,000 mcg PO DAILY 05/16/24 10/04/24 History 1,000 mcg tablet (Vitamin B-12) lorazepam 0.5 mg tablet (Ativan) 0.5 mg PO Q8H PRN anxiety #14 tabs 05/18/24 Rx albuterol sulfate 90 mcg/actuation 1 puff inhalation Q4 PRN Shortness 10/04/24 10/04/24 History aerosol inhaler Of Breath Or Wheezing baclofen 20 mg tablet 20 mg PO QID 10/04/24 10/04/24 History buprenorphine HCl 8 mg sublingual 8 mg sublingual TID 10/04/24 10/04/24 History tablet cephalexin 500 mg capsule 500 mg PO UD 10/04/24 10/04/24 History gabapentin 300 mg capsule 800 mg PO TID 10/04/24 10/04/24 History gabapentin 600 mg tablet 600 mg PO PM 10/04/24 10/04/24 History sulfamethoxazole 800 1 tab PO BID 10/04/24 10/04/24 History mg-trimethoprim 160 mg tablet Past Med/Surg History Problem List Anxiety state Complicated urinary tract infection (Acute) Medical History Pressure ulcer Scarring of lung IV drug abuse Surgical History No pertinent past surgical history Social History Smoking Status: Light tobacco smoker Tobacco Type: Cigarettes Cigarettes Per Day: 1/2 pack; Hx Alcohol Use: No Hx Substance Use: Yes (medical Marijuana) Non-Prescribed Medications: Heroin Non-Prescribed Medications Comment: fentanyl Preferred Language: Citizen Of [place] Communication Ability: Effective Supervisor Prop Making Required: No Beliefs That Will Affect Care: None Current Living Situation: Significant Other Feels Safe at Home: Yes Assistive Devices: Wheelchair Review of Systems Review of Systems: All systems reviewed & are unremarkable except as noted in HPI & below Physical Exam Physical Exam: General: patient resting comfortably, NAD, non-toxic in appearance, AA&O x 4 Skin: warm, dry, intact, no rashes or lesions HEENT: NC/AT, PERRL, EOMI, anicteric sclera, conjunctiva without injection, external ear normal to inspection and nontender, nares patent, moist mucus membranes, dentition intact, no oropharyngeal lesions, neck supple, trachea midline, no LAD, no thyromegaly, no JVD Heart: +S1/S2, regular, no m/r/g Lungs: equal air entry bilaterally, no rales/rhonchi/wheezes Abd: +BS, soft, NT/ND, no masses/organomegaly/ascites Ext: warm, 2+ pulses in UE/LE bilaterally, no clubbing/cyanosis or edema Neuro: paraplegic Results & Data Results & Data Vital Signs (Past 12 Hours) Vital Signs Temp Pulse Pulse Resp BP BP Pulse Ox 10/04/24 03:00 71 16 106/67 98 10/04/24 02:34 79 10/04/24 02:30 81 16 108/74 100 10/04/24 02:00 71 16 109/71 99 10/04/24 01:45 110 H 16 115/94 99 10/04/24 01:18 104 H 16 133/93 100 10/03/24 23:31 75 16 120/76 96 10/03/24 23:31 96 10/03/24 23:00 70 16 96/65 L 97 10/03/24 22:21 74 10/03/24 22:00 110 H 16 138/79 100 10/03/24 21:43 36.7 C 88 16 134/79 96 O2 Del Method 10/04/24 03:00 Room Air 10/04/24 02:34 10/04/24 02:30 Room Air 10/04/24 02:00 Room Air 10/04/24 01:45 Room Air 10/04/24 01:18 Room Air 10/03/24 23:31 Room Air 10/03/24 23:31 Room Air 10/03/24 23:00 Room Air 10/03/24 22:21 10/03/24 22:00 Room Air 10/03/24 21:43 Room Air Laboratory Results Laboratory Results WBC 5.39 K/ul (4.8-10.8) 10/04/24 00:30 RBC 4.32 M/uL (4.20-5.40) 10/04/24 00:30 Hgb 12.9 g/dl (12.0-16.0) 10/04/24 00:30 Hct 38.6 % (37.0-47.0) 10/04/24 00:30 MCV 89.4 fL (80.0-100.0) 10/04/24 00:30 MCH 29.9 pg (25.0-34.0) 10/04/24 00:30 MCHC 33.4 g/dL (32.0-36.0) 10/04/24 00:30 RDW Std Deviation 44.0 fL (36.4-46.3) 10/04/24 00:30 RDW Coeff of Paulo 13.3 % (11.5-14.5) 10/04/24 00:30 Plt Count 286 K/uL (130-400) 10/04/24 00:30 MPV 9.8 fL (9.4-12.4) 10/04/24 00:30 Immature Gran % (Auto) 0.2 % 10/04/24 00:30 Neut % (Auto) 63.6 % 10/04/24 00:30 Lymph % (Auto) 26.5 % 10/04/24 00:30 [place] % (Auto) 7.8 % 10/04/24 00:30 Eos % (Auto) 1.5 % 10/04/24 00:30 Baso % (Auto) 0.4 % 10/04/24 00:30 Neut # (Auto) 3.43 K/uL (1.40-6.50) 10/04/24 00:30 Lymph # (Auto) 1.43 K/uL (1.20-3.40) 10/04/24 00:30 [place] # (Auto) 0.42 K/uL (0.11-0.59) 10/04/24 00:30 Eos # (Auto) 0.08 K/uL (0.00-0.50) 10/04/24 00:30 Baso # (Auto) 0.02 K/uL (0.00-0.20) 10/04/24 00:30 Immature Gran # (Auto) 0.01 K/uL (0.01-0.20) 10/04/24 00:30 VBG pH 7.38 (7.36-7.41) 10/04/24 00:30 VBG pCO2 41 mmHg (38-50) 10/04/24 00:30 VBG pO2 57 mmHg 10/04/24 00:30 VBG HCO3 24 mmol/L 10/04/24 00: VBG O2 Saturation 88.3 % 10/04/24 00:30 VBG Base Excess -0.8 mEq/L 10/04/24 00:30 Sodium 137 mmol/L (136-145) 10/04/24 00:30 Potassium 4.3 mmol/L (3.5-5.1) 10/04/24 00:30 Chloride 107 mmol/L (98-107) 10/04/24 00: Carbon Dioxide 23 mmol/L (21-32) 10/04/24 00:30 Anion Gap 7 (3-11) 10/04/24 00:30 BUN 8 mg/dl (6-23) 10/04/24 00:30 Creatinine 0.52 mg/dl (0.6-1.2) L 10/04/24 00:30 Est Cr Clr Drug Dosing Not Reportable 10/04/24 00: eGFR 119.63 10/04/24 00: BUN/Creatinine Ratio 15.4 (10-20) 10/04/24 00: Glucose 94 mg/dl (70-99(Fasting)) 10/04/24 00: Lactate 1.0 mmol/L (0.4-2.0) 10/04/24 00:30 Calcium 8.9 mg/dl (8.6-10.3) 10/04/24 00:30 Magnesium 1.9 mg/dl (1.7-2.4) 10/04/24 00:30 Total Bilirubin 0.2 mg/dl (0.2-1.0) 10/04/24 00:30 Direct Bilirubin 0.1 mg/dl (0-0.2) 10/04/24 00:30 AST 15 U/L (13-39) 10/04/24 00:30 ALT 16 U/L (7-52) 10/04/24 00:30 Alkaline Phosphatase 56 U/L (34-104) 10/04/24 00:30 Total Protein 7.3 gm/dl (6.0-8.3) 10/04/24 00:30 Albumin 4.2 gm/dl (3.4-5.0) 10/04/24 00:30 Procalcitonin < 0.02 ng/ml (0-0.5) 10/04/24 00:30 Urine Color Yellow 10/04/24 01:01 Urine Appearance Clear (Clear) 10/04/24 01:01 Urine pH 6.5 (4.5-7.5) 10/04/24 01:01 Ur Specific Halma 1.013 (1.000-1.030) 10/04/24 01:01 Urine Protein Trace (Negative) H 10/04/24 01:01 Urine Glucose (UA) Negative (Negative) 10/04/24 01:01 Urine Ketones Negative (Negative) 10/04/24 01:01 Urine Blood Trace (Negative) H 10/04/24 01:01 Urine Nitrite Negative (Negative) 10/04/24 01:01 Urine Bilirubin Negative (Negative) 10/04/24 01:01 Urine Urobilinogen Negative (Negative) 10/04/24 01:01 Ur Leukocyte Esterase 2+ (Negative) H 10/04/24 01:01 Urine WBC (Auto) 21-50 /hpf (0-5) H 10/04/24 01:01 Urine RBC (Auto) 6-10 /hpf (0-2) H 10/04/24 01:01 U Hyaline Cast (Auto) 3-5 /lpf (0-2) H 10/04/24 01:01 U Epithel Cells (Auto) 0-2 /hpf (0-2) 10/04/24 01:01 Urine Bacteria (Auto) None Seen (None Seen) 10/04/24 01:01 Impressions Chest X-Ray 10/03/24 23:38 EXAM: XR chest 1V portable CLINICAL HISTORY: SEPSIS NOT PREG WTW TECHNIQUE: Radiograph of chest was acquired. COMPARISON: 13 May 2024. FINDINGS: Stable nodule is noted in the right lower zone as seen in the previous radiograph. No significant interval change. Rest of the lung leon do not reveal any obvious abnormality. No pleural effusion is detected. The cardio-mediastinal silhouette is within normal limits. No acute osseous abnormality. Transpedicular fixation devices are noted involving the thoracic vertebrae. IMPRESSION: 1. No acute abnormality detected. 2. Stable nodule is noted in the right lower zone as seen in the previous radiograph. No significant interval change. Rest of the lung leon do not reveal any obvious abnormality. No significant interval new finding is noted. Electronically signed by Wilian Lou 10-04-2024 01:32 AM PG Care Time/CCT Total # of Minutes Spent Total Time Spent with Patient: Total time spent is greater than 50% in coordination of care (as documented) at patient's floor/unit and/or counseling patient: Coding Level of Care Code 64861 INT INP/OBS CARE 3/75MIN Diagnoses Complicated urinary tract infection N39.0 Paraplegia G82.20
[2024-10-04] MEDS ORDERED: ONDANSETRON INJ 2 MG/ML 2 ML VIAL IV PRN (04:49)
[2024-10-04] MEDS ORDERED: ALBUTEROL HFA 8 GM INHALER INH PRN (04:49)
[2024-10-04] MEDS ORDERED: ACETAMINOPHEN 325 MG TAB PO PRN (04:49)
[2024-10-04 04:52] VITALS: RESP 16; TEMP 98.4
[2024-10-04] MEDS: diazePAM 5 MG TABLET PO ONE (05:29)
[2024-10-04] MEDS: HYDROmorphone INJ 0.5 MG/0.5 ML SYR IV STA (06:20)
--- OUTSIDE RECORDS SUMMARY | 2024-10-04 06:25 | External Medical Summary | Summary of Care ---
Author Name Unknown Organization [facility] Address [address] [facility] [address] Phone [phone] Care Team Providers Care Auto Service Dispatcher Name Role Phone Emiliano Marie MD Primary Care Provider + [phone] Reason for Visit * Reason Onset Date Comments FYI 08/20/2024 Encounter Details Date Type Department Care Team (Late st Contact Info) Description 08/20/2024 Telephone Orthopaedics Spine Surgery, Argelia Mendez [address] [place] [address] Mandeep Carver MD [address] [facility] [place] [id number] FYI Allergies No known active allergiesdocumented as of this encounter (statuses as of 08/20/2024) Medications Baclofen 20 MG Oral Tablet Take 1 Tablet by mouth in the morning and 1 Tablet at noon and 1 Tablet in the evening and 1 Tablet before bedtime. 07/08/2024 Active Gabapentin 800 MG Oral Tablet (Neurontin) Take 1 Tablet by mouth in the morning and 1 Tablet at noon and 1 Tablet before bedtime. 08/10/2024 Active Gabapentin 300 MG Oral Capsule (Neurontin) TAKE 2 CAPSULES BY MOUTH 3 TIMES A DAY 08/07/2024 Active Cephalexin 500 MG Oral Capsule (Keflex) Take 1 Capsule by mouth in the morning and 1 Capsule at noon and 1 Capsule before bedtime. 08/12/2024 Active Buprenorphine HCl 8 MG Sublingual Tablet Sublingual (Subutex) DISSOLVE 1 TABLET UNDER THE TONGUE THREE TIMES DAILY 08/03/2024 Active Advil Dual Action 125-250 MG Oral Tablet (Ibuprofen-Acet aminophen) Take 1 Tablet by mouth every 4 hours as needed. Active documented as of this encounter (statuses as of 08/20/2024) Active Problems Problem Noted Date Diagnosed Date Paraplegia 08/13/2024 Intractable back pain 08/13/2024 Osteomyelitis of low back 08/13/2024 Drug addiction in remission 08/13/2024 Skin ulcer of buttock 08/13/2024 documented as of this encounter (statuses as of 08/20/2024) Social History Tobacco Use Types Packs/Day Years Used Date Smoking Tobacco: Former Cigarettes Smokeless Tobacco: Never Alcohol Use Standard Drinks/Week Comments Never 0 (1 standard drink = 0.6 oz pur e alcohol) Comments Unknown Sex and Gender Information Value Date Recorded Sex Assigned at Not on file Legal Sex Female 3:02 PM EST Gender Identity Not on file Sexual Orientation Not on file documented as of this encounter Miscellaneous Notes * Telephone Encounter - Janell Torres LPN - 08/20/2024 5:18 PM EST Has MRI, CT scan that was given to neurology to upload into system. 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: Spine investigations done and date: Xray: MRI: 05/13/[address] [facility] [address] scan: 06/13/2024 [facility] EMG/ NCV: Spine treatment so far: Medications: baclofen, gabapentin, ibuprofen, advil Physical therapy within last year: just stopped Chiropractor therapy: none Brace use: none Pain management and Spinal epidural injections: Spine surgery - Surgeon and year: 03/2023 in [place] T6 and T7, back is fused from T3 to T10 Significant Medical history: If diabetic HbA1c: none On blood thinners: none Osteoporosis screening: none Tobacco/ Illicit drug use: smokes counseled on cessation Work profile disabled documented in this encounter Plan of Treatment Upcoming Encounters Date Type Department Care Team (Late st Contact Info) Description 08/21/2024 9:00 AM EST Office Visit Orthopaedics Spine Surgery, Argelia Mendez [address] [place] [address] Mandeep Carver MD [address] [place] [id number] 10/11/2024 10:00 AM EST Office Visit Interventional Pain Center, [facility] [address] [place] [address] Esme William PA-C [address] [place] [address] Health Maintenance Due Date Last Done Comments Lipid Panel 1982 Depression Screening 1994 HIV Screening 1997 Hepatitis C Screening 2000 DTap/Tdap Vaccines (1 - Tdap) 2001 Hepatitis B Vaccine (1 of 3 - 19+ 3-dose series) 2001 Pap Smear 2003 Cervical Cancer Screening 2012 HPV/Co-Test 2012 Mammogram 2022 COVID-19 Vaccine ( - 2023-2 5 season) 2024 Influenza Vaccine (FLU shot) (#1) 2024 07/20/2019, 07/03/2015 Pneumococcal Vaccine: Pediatrics (0 to 5 Years) and At-Risk Patients (6 to 64 Years) Aged Out 07/20/2019 No longer eligible b ased on patient's age to complete this topic HPV (Gardasil) Vaccine Aged Out No lo nger eligible based on patient's age to complete this topic MENINGOCOCCAL (MENACTRA/MENVEO) Aged Out No longer eligible b ased on patient's age to complete this topic documented as of this encounter Medical Devices Not on filedocumented as of this encounter Care Teams Auto Service Dispatcher Relationship Specialty Start Date End Date Emiliano Marie MD [address] [place] [address] PCP - General Family Medicine 08/13/24 documented as of this encounter
--- OUTSIDE RECORDS SUMMARY | 2024-10-04 06:25 | External Medical Summary | Summary of Care ---
Author Name Unknown Organization [facility] Address [address] [place] [address] Phone [phone] Care Team Providers Care Geomorphology Teacher Name Role Phone Emiliano Marie MD Primary Care Provider + [phone] Reason for Referral * Evaluate & Treat - Unlimited Visits (Within 10 days (routine)) - Pending Review Specialty Diagnoses / Procedures Referred By Contkaley t Referred To Contact Neuro/Ortho Surgery - Spine. / Neurological Surgery Diagnoses Intractable back pain Paraplegia (HCC) Anusha Barhtolomew PA-C [address] [facility] [place] [address] Phone: tel: fax: Referral ID Status Reason Start Date Expiration Date Visits Requested Visits Authorized [id number] Pending Review Specialty Services Required [phone] Question Answer Referral Priority Within 10 days (routine) Where should this appointment be scheduled? [facility] spine region: Back - Thoracic/Lumbar Do you have any recent complete loss of bladder or bowel function? No Comments Needs appointment with neurosurgery for evaluation for possible intervention. Thank you Anusha Bartholomew PA-C 09/25/2024 11:31 AM Reason for Visit * Reason Onset Date Comments Returning Call 09/25/2024 Encounter Details Date Type Department Care Team (Late st Contact Info) Description 09/25/2024 Telephone Neurology Ed Hauser [place] [address] [facility] [place] [address] Services, Scheduling [address] [place] [address] Returning Call Allergies No known active allergiesdocumented as of this encounter (statuses as of 09/25/2024) Medications Baclofen 20 MG Oral Tablet Take [...] as of this encounter (statuses as of 09/25/2024) Active Problems Problem Noted Date Diagnosed Date Paraplegia 08/13/2024 Intractable back pain 08/13/2024 Osteomyelitis of low back 08/13/2024 Drug addiction in remission 08/13/2024 Skin ulcer of buttock 08/13/2024 documented as of this encounter (statuses as of 09/25/2024) Social History Tobacco Use Types Packs/Day Years [...] as of this encounter Miscellaneous Notes * Addendum Note - Anusha Bartholomew PA-C - 09/25/2024 11:32 AM ESTAddended by: ANUSHA BARTHOLOMEW on: 09/25/2024 11:32 AM Modules accepted: Orders * Telephone Encounter - Lilia Cervantes OSA - 09/25/2024 10:52 AM EST PT very brief stating she needed to get a call back from Anusha Bartholomew documented in this encounter Plan of Treatment Upcoming Encounters Date Type Department Care Team (Late st Contact Info) Description 10/11/2024 10:00 AM EST Office Visit Interventional Pain Center [facility] [address] [place] [phone] Esme William PA-C [address] [place] [address] Scheduled Referrals Name Type Priority Associated Diagnoses Orde r Schedule SPINE SURGERY REFERRAL OP Referral Within 10 days (routine) Intractable back pain Paraplegia (HCC) Ordered: 09/25/2024 Health Maintenance Due Date Last Done Comments [...] 5 Years) and At-Risk Patients (6 to 18 Years and 19+ Years) Aged Out 07/20/2019 No longer eligible based on patient's age to complete this topic HPV (Gardasil) Vaccine Aged Out No lo nger eligible based on patient's age to complete this topic MENINGOCOCCAL (MENACTRA/MENVEO) Aged Out No longer eligible b ased on patient's age to complete this topic documented as of this encounter Medical Devices Not on filedocumented as of this encounter Visit Diagnoses Diagnosis Intractable back pain- Primary Backache, unspecified Paraplegia (HCC) Paraplegia documented in this encounter Care Teams Geomorphology Teacher Relationship Specialty Start Date End Date Emiliano Marie MD [address] [place] [address] PCP - General Family Medicine 08/13/24 documented as of this encounter
--- OUTSIDE RECORDS SUMMARY | 2024-10-04 06:25 | External Medical Summary | Summary of Care ---
Author Name Unknown Organization [facility] Address [address] [place] [address] Phone [phone] Care Team Providers Care Apprentice Name Role Phone Emiliano Marie MD Primary Care Provider + [phone] Reason for Referral * Evaluate & Treat - Unlimited Visits (Within 3 days (urgent)) - Pending Review Specialty Diagnoses / Procedures Referred By Neha mendez Referred To Contact Neuro/Ortho Surgery - Spine. / Neurological Surgery Diagnoses Paraplegia (HCC) Intractable back pain Thea Wright PA-C [address] [place] [address] Phone: tel: fax: Referral ID Status Reason Start Date Expiration Date Visits Requested Visits Authorized [id number] Pending Review Specialty Services Required 4 [phone] Question Answer Referral Priority Within 3 days (urgent) Where should this appointment be scheduled? [facility] spine region: Neck - Cervical Do you have any recent complete loss of bladder or bowel function? Yes - Submit as Urgent Comments Ongoing issues with incontinence and increase pain * Evaluate & Treat - Unlimited Visits (Within 3 days (urgent)) - Pending Review Specialty Diagnoses / Procedures Referred By Neha mendez Referred To Contact Pain Management / Pain Medicine Diagnoses Paraplegia (HCC) Intractable back pain Thea Wright PA-C [address] [place] [address] Phone: tel: fax: Referral ID Status Reason Start Date Expiration Date Visits Requested Visits Authorized [id number] Pending Review Specialty Services Required 4 [phone] Question Answer Referral Priority Within 3 days (urgent) Where should this appointment be scheduled? [facility] Reason for referral? Interventional Pain Management - (Injection) What condition is the patient being referred for? Other Conditions - paralegic What is the preferred location to have this test performed? Non [facility] Site - near home Comments Patient Name: Sona Ybarra Date of : 1980 Department Phone Number: : [phone] (if unable to have a MRI) is recommended if any of the following apply: 1. Patient has neck or back pain with radiation to extremities. A previous MRI will be accepted if symptoms unchanged since prior MRI. 2. Spinal surgery since last MRI. If yes, order a MRI with and without contrast. 3. Hx or ongoing cancer treatment. Patient will need spine x-ray (Ap/Lat) for axial neck or back pain if not done previously. Fax No. [facility] [phone] or contact front desk auxiliary [phone] Fax No. [facility] [phone] or contact front desk auxiliary [phone] Fax No. [facility] [phone] or contact front desk auxiliary [phone] Reason for Visit * Reason Comments NEW PATIENT * Evaluate & Treat - Unlimited Visits (Within 3 days (urgent)) - Pending Review Specialty Diagnoses / Procedures Referred By Neha mendez Referred To Contact Neurology Diagnoses Chronic paraplegia (HCC) Lili Mcmillan CRNP [address] [facility] [place] [address] Phone: tel: fax: Referral ID Status Reason Start Date Expiration Date Visits Requested Visits Authorized [id number] Pending Review Specialty Services Required 07/31/[phone] Encounter Details Date Type Department Care Team (Late st Contact Info) Description 08/13/2024 12:40 PM EST Office [facility] [place] [address] 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); Skin ulcer of buttock, unspecified ulcer stage (HCC) Allergies No known active allergiesdocumented as of this encounter (statuses as of 08/13/2024) Medications Baclofen 20 MG Oral Tablet Take [...] as of this encounter (statuses as of 08/13/2024) Active Problems Problem Noted Date Diagnosed Date Paraplegia 08/13/2024 Intractable back pain 08/13/2024 Osteomyelitis of low back 08/13/2024 Drug addiction in remission 08/13/2024 Skin ulcer of buttock 08/13/2024 documented as of this encounter (statuses as of 08/13/2024) Social History Tobacco Use Types Packs/Day Years Used Date Smoking Tobacco: Former Cigarettes Smokeless Tobacco: Never Tobacco Cessation:Counseling Given: Not Answered Alcohol Use Standard Drinks/Week Comments Never 0 (1 standard drink = 0.6 oz pur e alcohol) Comments Unknown Sex and Gender Information Value Date Recorded Sex Assigned at Not on file Legal Sex Female 3:02 PM EST Gender Identity Not on file Sexual Orientation Not on file documented as of this encounter Last Filed Vital Signs Vital Sign Reading Time Taken Comments Blood Pressure 112/68 08/13/2024 12:42 PM EST Pulse 112 08/13/2024 12:42 PM EST Temperature 36.3 C (97.4 F) 08/13/2024 12:[address] Respiratory Rate 16 08/13/2024 12:42 PM EST Oxygen Saturation 96% 08/13/2024 12:42 PM EST Inhaled Oxygen Concentration - - Weight - - Height - - Body Mass Index - - documented in this encounter Nursing Notes * Rebekah Ramos MED ASSIST - 08/13/2024 12:39 PM EST Chief Complaint Patient presents with NEW PATIENT documented in this encounter Plan of Treatment Upcoming Encounters Date Type Department Care Team (Late st Contact Info) Description 08/16/2024 3:30 PM EST Office Visit Orthopaedics Spine Surgery, Argelia Mendez [address] [place] [address] [place] [address] Mandeep Carver MD [address] [place] [address] 10/11/2024 10:00 AM EST Office Visit Interventional [facility] Center, [facility] [address] [place] [address] Esme William PA-C [address] [place] [address] Scheduled Referrals Name Type Priority Associated Diagnoses Orde r Schedule PAIN MEDICINE REFERRAL OP Referral Within 3 days (urgent) Paraplegia (HCC) Intractable back pain Ordered: 08/13/2024 SPINE SURGERY REFERRAL OP Referral Within 3 days (urgent) Paraplegia (HCC) Intractable back pain Ordered: 08/13/2024 Health Maintenance Due Date Last Done Comments Lipid Panel 1982 Depression Screening 1994 HIV Screening 1997 Hepatitis C Screening 2000 DTap/Tdap Vaccines (1 - Tdap) 2001 Hepatitis B Vaccine (1 of 3 - 19+ 3-dose series) 2001 Pap Smear 2003 Cervical Cancer Screening 2012 HPV/Co-Test 2012 Mammogram 2022 COVID-19 Vaccine (1 - 2023-2 5 season) 2024 Influenza Vaccine [...] as of this encounter Visit Diagnoses Diagnosis Paraplegia (HCC)- Primary Paraplegia Intractable back pain Backache, unspecified Osteomyelitis of low back (HCC) Unspecified osteomyelitis, other specified site 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
--- OUTSIDE RECORDS SUMMARY | 2024-10-04 06:25 | External Medical Summary | Summary of Care ---
Author Name Unknown Organization [facility] Address [address] [place] [address] Phone [phone] Care Team Providers Care Cost Accountant Name Role Phone Emiliano Marie MD Primary Care Provider + [phone] Reason for Referral * Evaluate & Treat - Unlimited Visits (Within 10 days (routine)) - Authorized Specialty Diagnoses / Procedures Referred By Neha t Referred To Contact Neuro/Ortho Surgery - Spine. / Neurological Surgery Diagnoses Intractable back pain Paraplegia (HCC) Anusha Bartholomew PA-C [address] [place] [address] Phone: tel: fax: Referral ID Status Reason Start Date Expiration Date Visits Requested Visits Authorized [id number] Authorized Specialty Services Required 09/27/[phone] Question Answer Referral Priority Within [...] Info) Description 09/25/2024 Telephone Neurology Ed [place] [address] [place] [address] Services, Scheduling [address] [place] [address] Returning Call Allergies No known active allergiesdocumented as of this encounter (statuses as of 09/27/2024) Medications Baclofen 20 MG Oral Tablet Take [...] as of this encounter (statuses as of 09/27/2024) Active Problems Problem Noted Date Diagnosed Date Paraplegia 08/13/2024 Intractable back pain 08/13/2024 Osteomyelitis of low back 08/13/2024 Drug addiction in remission 08/13/2024 Skin ulcer of buttock 08/13/2024 documented as of this encounter (statuses as of 09/27/2024) Social History Tobacco Use Types Packs/Day Years [...] encounter Miscellaneous Notes * Telephone Encounter - Kimmy Overton OSA - 09/27/2024 9:46 AM EST Pt scheduled * Telephone Encounter - Anusha Bartholomew PA-C - 09/25/2024 11:32 AM EST Returned call regarding referral to neurosurgery for evaluation. New referral placed saw orthopedics needs neurosurgery. Anusha Bartholomew PA-C 09/25/2024 11:33 AM * Addendum Note - Anusha Bartholomew PA-C - 09/25/2024 11:32 AM ESTAddended by: ANUSHA BARTHOLOMEW on: 09/25/2024 11:32 AM Modules accepted: Orders * Telephone Encounter - Lilia Cervantes OSA - 09/25/2024 10:52 AM EST PT very brief stating she needed to get a call back from Anusha Barthoolmew documented in this encounter Plan of Treatment Upcoming Encounters Date Type Department Care Team (Late st Contact Info) Description 10/10/2024 2:00 PM EST Office [facility] [address] [place] [address] Linden June MD [address] [place] [address] 10/11/2024 10:00 AM EST Office Visit Interventional Pain Center [facility] [address] [place] [phone] Esme William PA-C [address] [place] [address] Scheduled Referrals Name Type Priority Associated Diagnoses [...] Paraplegia documented in this encounter Care Teams Cost Accountant Relationship Specialty Start Date End Date Emiliano Marie MD [address] [place] [address] PCP - General Family Medicine 08/13/24 documented as of this encounter
--- OUTSIDE RECORDS SUMMARY | 2024-10-04 06:25 | External Medical Summary | Summary of Care ---
Author Name Unknown Organization [facility] Address [address] [place] [address] Phone [phone] Care Team Providers Care Financial Compliance Manager Name Role Phone Unavailable Primary Care Provider Unavailabl e Reason for Referral * Evaluate & Treat - Unlimited Visits (Within 3 days (urgent)) - Pending Review Specialty Diagnoses / Procedures Referred By Neha mendez Referred To Contact Neurology Diagnoses Chronic paraplegia (HCC) Lili Mcmillan CRNP [address] [place], [place] [address] [address] Referral ID Status Reason Start Date Expiration Date Visits Requested Visits Authorized [id number] Pending Review Specialty Services Required 07/31/[phone] Question Answer Referral Priority Within 3 days (urgent) Where should this appointment be scheduled? [facility] Is this referral being placed for insurance purposes ONLY No, patient needs appointment [facility]Y REFERRAL QUESTIONS Other Conditions Comments Chronic paraplegia Encounter Details Date Type Department Care Team (Late st Contact Info) Description 07/31/2024 Orders Only [facility] [place], [address] *DO NOT REMOVE THIS DEPARTMENT* [place] [phone] Request, External Referral Chronic paraplegia (HCC)* Social History Tobacco Use Types Packs/Day Years Used Date Smoking Tobacco: Never Assessed Sex and Gender Information Value Date Recorded Sex Assigned at Not on file Gender Identity Not on file Sexual Orientation Not on file documented as of this encounter Plan of Treatment Scheduled Referrals Name Type Priority Associated Diagnoses Orde r Schedule ADULT NEUROLOGY REFERRAL OP Referral Within 3 days (urgent) Chronic paraplegia (HCC) Ordered: 07/31/2024 Health Maintenance Due Date Last Done Comments Lipid Panel 1982 Depression Screening 1994 HIV Screening 1997 Hepatitis C Screening 2000 DTap/Tdap Vaccines (1 - Tdap) 2001 Hepatitis B Vaccine (1 of 3 - 19+ 3-dose series) 2001 Pap Smear 2003 Cervical Cancer Screening 2012 HPV/Co-Test 2012 Mammogram 2022 COVID-19 Vaccine ( - 2023-2 5 season) 2024 Influenza Vaccine (FLU shot) (#1) 2024 HPV (Gardasil) Vaccine Aged Out No lo nger eligible based on patient's age to complete this topic MENINGOCOCCAL (MENACTRA/MENVEO) Aged Out No longer eligible based on patient's age to complete this topic Pneumococcal Vaccine: Pediat rics (0 to 5 Years) and At-Risk Patients (6 to 64 Years) Aged Out No longer eligible b ased on patient's age to complete this topic documented as of this encounter Medical Devices Not on filedocumented as of this encounter Visit Diagnoses Diagnosis Chronic paraplegia (HCC)- Primary documented in this encounter
--- OUTSIDE RECORDS SUMMARY | 2024-10-04 06:25 | External Medical Summary | Summary of Care ---
Author Name Unknown Organization [facility] Address [address] [place] [facility] [place] [address] Phone [phone] Care Team Providers Care Drawstring Knotter Name Role Phone Emiliano Marie MD Primary Care Provider + [phone] Encounter Details Date Type Department Care Team (Latest Contact Info) Description 08/21/2024 9:39 AM EST - 08/21/2024 11:59 PM EST Hospital Encounter [facility], [facility] [address] [place] [phone] Arrived Discharge Disposition: Home - Self Care Allergies No known active allergiesdocumented as of this encounter (statuses as of 08/22/2024) Medications Baclofen 20 MG Oral Tablet Take [...] as of this encounter (statuses as of 08/22/2024) Active Problems Problem Noted Date Diagnosed Date Paraplegia 08/13/2024 Intractable back pain 08/13/2024 Osteomyelitis of low back 08/13/2024 Drug addiction in remission 08/13/2024 Skin ulcer of buttock 08/13/2024 documented as of this encounter (statuses as of 08/22/2024) Social History Tobacco Use Types Packs/Day Years [...] as of this encounter Plan of Treatment Upcoming Encounters Date Type Department Care Team (Late st Contact Info) Description 10/11/2024 10:00 AM EST Office Visit Interventional Pain Center, [facility] [address] [place] [address] Esme William PA-C [address] [place] [address] Health Maintenance Due Date Last Done Comments [...] Not on filedocumented as of this encounter Procedures Procedure Name Priority Date/Time Associated Diagnosis Comments XR C SPINE 4-5 VIEWS Routine 08/21/2024 9:45 AM EST Neck pain Cervical radiculopathy documented in this encounter Results * XR C SPINE 4-5 VIEWS (08/21/2024 9:45 AM EST) Anatomical Region Laterality Modality Vertebra, Spine, Cspine Digital Radiography 08/22/2024 7:56 AM EST Impressions 08/22/2024 7:53 AM EST IMPRESSION 1. No acute findings. 2. Degenerative changes as above, most pronounced at C5-C6 and C6-C7. Narrative 08/22/2024 7:53 AM EST EXAM XR C SPINE 4-5 VIEWS,08/21/2024 9:45 am HISTORY 43 y/o withneck pain - radiculopathy - paraplegic COMPARISON No Comparison. TECHNIQUE XR C SPINE 4-5 VIEWS FINDINGS No visible fracture. Mild grade 1 anterolisthesis C4 on C5. There is mild reversal of the cervical lordosis. No dynamic instability is appreciated. Multilevel degenerative disc disease, most pronounced at C5-C6 and C6-C7 with disc space narrowing, subchondral sclerosis and marginal osteophyte formation. Multilevel facet and uncovertebral joint arthropathy noted. There is moderate leftward curve of the cervical spine. No significant soft tissue abnormality. Procedure Note Virgilio Ortiz MD - 08/22/2024 EXAM XR C SPINE 4-5 VIEWS,08/21/2024 9:45 am HISTORY 43 y/o withneck pain - radiculopathy - paraplegic COMPARISON No Comparison. TECHNIQUE XR C SPINE 4-5 VIEWS FINDINGS No visible fracture. Mild grade 1 anterolisthesis C4 on C5. There ismild reversal of the cervical lordosis. No dynamic instability isappreciated. Multilevel degenerative disc disease, most pronounced atC5-C6 and C6-C7 with disc space narrowing, subchondral sclerosis andmarginal osteophyte formation. Multilevel facet and uncovertebral jointarthropathy noted. There is moderate leftward curve of the cervicalspine. No significant soft tissue abnormality. IMPRESSION IMPRESSION 1. No acute findings. 2. Degenerative changes as above, most pronounced at C5-C6 and C6-C7. Mandeep Carver MD RADIOLOGY ([facility]) Final Result documented in this encounter Care Teams Drawstring Knotter Relationship Specialty Start Date End Date Emiliano Marie MD [address] [place] [address] PCP - General Family Medicine 08/13/24 documented as of this encounter
--- OUTSIDE RECORDS SUMMARY | 2024-10-04 06:25 | External Medical Summary | Summary of Care ---
Author Name Unknown Organization [facility] Address [address] [place] [address] Phone [phone] Care Team Providers Care Dam Worker Name Role Phone Emiliano Marie MD Primary Care Provider + [phone] Reason for Referral * Evaluate & Treat - Unlimited Visits (Within 10 days (routine)) - Pending Review Specialty Diagnoses / Procedures Referred By Contkaley t Referred To Contact Neuro/Ortho Surgery - Spine. / Neurological Surgery Diagnoses Intractable back pain Paraplegia (HCC) Anusha Bartholomew PA-C [address] [facility] [place] [address] Phone: tel: fax: Referral ID Status Reason Start Date Expiration Date Visits Requested Visits Authorized [id number] Pending Review Specialty Services Required 4 999 [...] Info) Description 09/25/2024 Telephone Neurology [facility] [place] [address] [facility] [place] [address] Services, Scheduling [address] [place] [address] Returning Call Allergies No known active allergiesdocumented [...] encounter Miscellaneous Notes * Telephone Encounter - Anusha Bartholomew PA-C [...] AM EST Office Visit Interventional Pain Center [facility] [address] [place] [phone] Esme William PA-C [address] [place] [address] Scheduled Referrals Name Type Priority Associated Diagnoses [...] Paraplegia documented in this encounter Care Teams Dam Worker Relationship Specialty Start Date End Date Emiliano Marie MD [address] [place] [address] PCP - General Family Medicine 08/13/24 documented as of this encounter
--- OUTSIDE RECORDS SUMMARY | 2024-10-04 06:25 | External Medical Summary | Summary of Care ---
Author Name Unknown Organization [facility] Address [address] [place] [address] Phone [phone] Care Team Providers Care Manager Mac Name Role Phone Emiliano Marie MD Primary Care Provider + [phone] Reason for Visit * Reason Onset Date Comments Returning Call 09/25/2024 Encounter Details Date Type Department Care Team (Late st Contact Info) Description 09/25/2024 Telephone Neurology [facility] [address] [place] [address] Services, Scheduling [address] [place] [address] Returning Call Allergies No known active allergiesdocumented [...] encounter Miscellaneous Notes * Telephone Encounter - Lilia Cervantes OSA - 09/25/2024 10:52 AM EST PT very brief stating she needed to get a call back from Thea Wright documented in this encounter Plan of Treatment Upcoming Encounters Date Type Department Care Team (Late st Contact Info) Description 10/11/2024 10:00 AM EST Office Visit Interventional Pain Center [facility] [address] [place] [phone] Esme William PA-C [address] [place] [address] Health Maintenance Due Date Last Done Comments [...] filedocumented as of this encounter Care Teams Manager Mac Relationship Specialty Start Date End Date Emiliano Marie MD [address] [place] [address] PCP - General Family Medicine 08/13/24 documented as of this encounter
--- OUTSIDE RECORDS SUMMARY | 2024-10-04 06:25 | External Medical Summary | Summary of Care ---
Author Name Unknown Organization [facility] Address [address] [place] [address] Phone [phone] Care Team Providers Care Data Network Architect Name Role Phone Emiliano Marie MD Primary Care Provider + [phone] Reason for Visit * Evaluate & Treat - Unlimited Visits (Within 3 days (urgent)) - Pending Review Specialty Diagnoses / Procedures Referred By Neha t Referred To Contact Neuro/Ortho Surgery - Spine. / Neurological Surgery Diagnoses Paraplegia (HCC) Intractable back pain Thea Wright PA-C [address] [place] [address] Phone: tel: fax: Referral ID Status Reason Start Date Expiration Date Visits Requested Visits Authorized [id number] Pending Review Specialty Services Required [phone] Encounter Details Date Type Department Care Team (Late st Contact Info) Description 08/21/2024 9:00 AM EST Office Visit Orthopaedics Spine Surgery, [facility] [address] [place] [phone] Mandeep Carver MD [address] [place] [phone] Neck pain*; Cervical radiculopathy; History of thoracic spinal fusion; Thoracic back pain, unspecified back pain laterality, unspecified chronicity; Paraplegia (HCC) Allergies No known active allergiesdocumented as of this encounter (statuses as of 08/24/2024) Medications Baclofen 20 MG Oral Tablet Take [...] as of this encounter (statuses as of 08/24/2024) Active Problems Problem Noted Date Diagnosed Date Paraplegia 08/13/2024 Intractable back pain 08/13/2024 Osteomyelitis of low back 08/13/2024 Drug addiction in remission 08/13/2024 Skin ulcer of buttock 08/13/2024 documented as of this encounter (statuses as of 08/24/2024) Social History Tobacco Use Types Packs/Day Years [...] on file documented as of this encounter Progress Notes * Mandeep Carver MD - 08/21/2024 10:07 AM EST Date of service: 08/21/2024 CHIEF COMPLAINT: Sona Ybarra is a 43 year old female presents with complaints/concerns of neck pain. This has been going on for the past few days. She has a complex medical history. She has had a thoracic fusion done for osteomyelitis of the thoracic spine at [facility] last year. She has been following up with the surgical team at [facility] as well as with physiatry. None of these details are imaging was made available. She also has paraplegia lower back down. It appears that she has been dealing with some complex set of issues and has been seeing multiple providers without resolution of the issues to her satisfaction. The patient is quite frustrated about the pain and a variety of different issues. She has been to multiple providers for this. She has not been able to get any definitive answers with regards to the same. The patient denies any acute progressive neurological deficit, bowel bladder disturbances constitutional symptoms. Has MRI, CT scan that was given to neurology to upload into system. Unable to make it to [place] because of the pain New Referring physician: Thea Wright PA-C HPI: From bottom of ribs down to feet described as pressure and gets shots of electricity down legs. Builds up. Goes from hot to cold. Which side extremity: both Injury and date: none Onset, progress and duration: ongoing Balance problems: paraplegic Bladder or bowel disturbances: ongoing Hand dominance for cervical and hand function: right Workman compensation/ Litigation/ Shipping Lead: Spine investigations done and date: Xray: today 08/21/24 MRI: 05/13/2024 [facility] CT scan: 06/13/2024 [facility] EMG/ NCV: - seen neurology 08/13/24. Spine treatment so far: Medications: baclofen, gabapentin, ibuprofen, advil, lyrica in the past, pamelor and cymbalta Physical therapy within last year: just stopped Chiropractor therapy: none Brace use: none Pain management and Spinal epidural injections: Spine surgery - Surgeon and year: 03/2023 in [facility] T6 and T7, back is fused from T3 to T10 Significant Medical history: If diabetic HbA1c: none On blood thinners: none Osteoporosis screening: none Tobacco/ Illicit drug use: smokes counseled on cessation Work profile disabled Allergies: Patient has no known allergies. The past medical, surgical, medication, family and social history was reviewed and is documented elsewhere in the chart. ROS: Negative except as outlined in HPI Vitals: There were no vitals taken for this visit. There is no height or weight on file to calculate BMI. Physical Exam: Examination was a little challenging because of the patient's mood and lack of desire to participate General: alert, healthy and no distress. The general appearance appears normal. Cardiovascular system: Vascularity grossly preserved Spine evaluation: The cervical spine was evaluated. No paraspinal swelling. No deformity. The patient is in a wheelchair. It was difficult to perform a detailed evaluation of the other areas. Neurological examination: A detailed neurological examination was not possible. Examination of the upper extremities in the neck showed normal motor strength and sensations. The neck range of motion was well preserved. Radiological imaging: I independently reviewed the relevant radiological imaging including x-rays ordered at this visit and discussed it with the patient X-rays of the cervical spine including dynamic view show presence of multilevel degenerative changes. There is loss of cervical lordosis. No imaging is available in relation to the thoracic spine Assessment & Plan: Pt is a 43 year old female here for the following problems/concerns: Neck pain History of thoracic fusion done at [facility] last year History of thoracic osteomyelitis History of paraplegia History of complex pain likely a complex regional pain syndrome History of skin answers on the buttock History of drug addiction History of intractable back pain Concern for complex regional pain syndrome We discussed the diagnosis, the natural history and the treatment options. Based on the findings various treatment options including the risks, benefits and alternatives were discussed. Patient has a very chronic longstanding and complex problem. She has had a major surgery on her thoracic spine at [facility] last year and has been following up with the surgical team andphysiatry. She is paraplegic at the baseline and has chronic pain issues with regards to the same. She has had longstanding pain issues for which she has seen physiatry and other specialist in the past. With regards to the neck pain, she has degenerative changes. She is neurologically stable. No urgent intervention is indicated. Neck brace and neck range of motion exercises would be beneficial. Patient kept on asking why she has so much pain and what are her treatment options. I tried to explain her that with the limited information, lack of access to the medical records or the imaging, it was difficult for me to explain her about this complex problem especially with her extensive medicalhistory, major spine intervention, spinal cord dysfunction, paraplegia and other pre- existing medical conditions. Patient is encouraged to continue follow-up with the surgical team as well as physiatry at [facility] as they would be in the best position to answer some of her questions. She has missedthe last few appointments. Patient wanted to see a neurosurgeon and was upset that she did not get to see 1 after I told her that I am orthopedic spine surgeon. She was quite upset that she was not able to understand why she was having the pain and the related issues. Patient appeared to be dissatisfied with this discussion and decided to walk out of the office. We tried our best to reassure the patient and give us the possible guidance. Additional recommendations: Activity modification as tolerated Pain medications as per the primary care. If the patient has persistence or worsening of symptoms additional investigations will be recommended. Warning signs have been discussed. Follow up: Patient should continue follow-up with her operating surgeon and the physiatry team and other specialist at [facility]. She should also continue follow-up with Neurology . Reach out earlier if any acute concerns. Complexity of decision making: High I spent 45 minutes on 08/21/2024 in preparation, delivery and documentation of the care provided tothe patient, excluding any time spent on the performance of the procedure are separately billable service. Mandeep Carver MD This chart was completed in part utilizing [employer] Speech Voice Recognition Software. Grammatical errors, random word insertions, prounoun errors and incomplete sentences are an occasional consequence of this system due to software limitations, ambient noise, and hardware issues. Any formal questions or concerns about the content, text, or information contained within the body of this dictation should be directly addressed to the provider for clarification. documented in this encounter Nursing Notes * Tila Marinelli LPN - 08/21/2024 9:34 AM EST Has MRI, CT scan that was given to neurology to upload into system. Unable to make it to [place] because of the pain New Referring physician: Thea Wright PA-C HPI: From bottom of ribs down to feet described as pressure and gets shots of electricity down legs. Builds up. Goes from hot to cold. Which side extremity: both Injury and date: none Onset, progress and duration: ongoing Balance problems: paraplegic Bladder or bowel disturbances: ongoing Hand dominance for cervical and hand function: right Workman compensation/ Litigation/ Shipping Lead: Spine investigations done and date: Xray: today 08/21/24 MRI: 05/13/2024 [facility] [place] scan: 06/13/2024 [facility] EMG/ NCV: - seen neurology 08/13/24. Spine treatment so far: Medications: baclofen, gabapentin, ibuprofen, advil, lyrica in the past, pamelor and cymbalta Physical therapy within last year: just stopped Chiropractor therapy: none Brace use: none Pain management and Spinal epidural injections: Spine surgery - Surgeon and year: 03/2023 in [facility] T6 and T7, back is fused from T3 to T10 Significant Medical history: If diabetic HbA1c: none On blood thinners: none Osteoporosis screening: none Tobacco/ Illicit drug use: smokes counseled on cessation Work profile disabled documented in this encounter Plan of Treatment Upcoming Encounters Date Type Department Care Team (Late st Contact Info) Description 10/11/2024 10:00 AM EST Office Visit Interventional Pain Center, [facility] [address] [place] [id number] Esme William PA-C [address] [place] [address] Health Maintenance Due Date Last Done Comments [...] C5-C6 and C6-C7. Mandeep Carver MD RADIOLOGY ([facility]) Final Result documented in this encounter Visit Diagnoses Diagnosis Neck pain- Primary Cervicalgia Cervical radiculopathy Brachial neuritis or radiculitis nos History of thoracic spinal fusion Thoracic back pain, unspecified back pain laterality, unspecified chronicity Paraplegia (HCC) Paraplegia documented in this encounter Care Teams Data Network Architect Relationship Specialty Start Date End Date Emiliano Marie MD [address] [place] [address] PCP - General Family Medicine 08/13/24 documented as of this encounter
[2024-10-04] MEDS: SULFA/TRIMETH 80/16MG/ML 320 MG in DEXTROSE 5% 500 ML IV SCH (06:28)
[2024-10-04 07:28] VITALS: BP 136/85; PULSE 88; O2SAT 98
[2024-10-04] MEDS: buprenorphine HCL 8 MG SUBL SL SCH (08:13)
[2024-10-04] MEDS: LORazepam 0.5 MG TAB PO PRN (08:13)
[2024-10-04] MEDS: GABAPENTIN 400 MG CAP PO SCH (08:16)
[2024-10-04] MEDS: BACLOFEN 20 MG TAB PO SCH (08:16)
[2024-10-04] MEDS: cephALEXin 500 MG CAP PO SCH ×2 (08:18→13:03)
--- NOTE | 2024-10-04 08:36 | Electrocardiogram Report ---
Test Reason : Blood Pressure : */* mmHG Vent. Rate : 68 BPM Atrial Rate : 68 BPM P-R Int : 104 ms QRS Dur : 78 ms QT Int : 404 ms P-R-T Axes : 58 57 39 degrees QTcB Int : 429 ms Sinus rhythm with short MN Otherwise normal ECG When compared with ECG of 28-Mar-2023 14:36, Vent. rate has decreased by 48 bpm Confirmed by Connor Bauer ([id number]) on 10/04/2024 8:36:10 AM Referred By: REFERRED SELF Confirmed By: Connor Bauer
[2024-10-04] MEDS: CIPROFLOXACIN / D5W 400 MG/200 ML BAG IV SCH (10:23)
[2024-10-04] MEDS ORDERED: TOBRAMYCIN CONSULT ACTIVE PRN (12:03)
--- NOTE | 2024-10-04 12:13 | Hospitalist Progress Note ---
Date of Service October 04, 2024 Assessment & Plan (1) Complicated urinary tract infection: Plan: Chronic indwelling Fulton catheter due to paraplegia. Recurrent UTIs. She states that the only antibiotic that works and that she can tolerate is intravenous tobramycin. Urine culture obtained in [place] from September 29 of this year reveals stenotrophomonas. Fulton has been changed. (2) Paraplegia: Plan: Patient is scheduled to see Neurology on 10/10/24. 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 Chronic neuropathic pain distally from the injury. Will hold Keflex while she is on tobramycin (3) Anxiety state: Plan: Currently tearful and agitated. She states that the only thing that helps is intravenous lorazepam. (4) History of intravenous drug abuse: Plan: She is on Subutex daily. This will continue. Plan Eventual discharge back to home. Admission and Anticipated Discharge Date Admission Date: October 04, 2024 Subjective The patient is upset and tearful. She states that the only thing that helps her is parenteral Ativan and tobramycin. Urine culture results are pending. She has a chronic indwelling urinary catheter with recurrent infections unfortunately. IV fluids have been tapered down. Review of Systems 2 Review of Systems: Constitutionalno fever or chills. Tearful and upset ENTno blurred vision, no double vision, no epistaxis, no sore throat Respiratoryno cough, no wheezing, no shortness of breath Cardiacno palpitations, no chest pain, no syncope Estephanie nausea, vomiting, diarrhea, melena, hematochezia GUbladder catheter in place. No gross hematuria seen Musculoskeletalno joint pain, no muscle tenderness Skinno bruising, no rashes, no pruritus Neurochronic lower extremity paraplegia. Chronic neuropathic pain bilateral lower extremities Psychtearful, agitated Physical Exam 2 Physical Exam: General-alert and oriented x3, no fever, no chills HEENT-head atraumatic and normocephalic, pupils equal and reactive to light, extraocular muscles intact Neck-no lymphadenopathy or thyromegaly, trachea midline Chest-clear to auscultation. No rales, wheezing or rhonchi Cardiac-regular rate and rhythm, normal S1 and S2 Abdomen-normal bowel sounds, no hepatosplenomegaly Extremities-no cyanosis, clubbing, or edema Neuro-cranial nerves II through XII intact, chronic bilateral lower extremity paraplegia. Chronic neuralgia bilateral lower extremities. Psych-tearful and agitated Results & Data Results & Data Vital Signs (Past 12 Hours) Vital Signs Temp Pulse Pulse Pulse Resp BP Pulse Ox 10/04/24 07:27 36.9 C 88 16 136/85 98 10/04/24 04:35 36.9 C 70 16 121/74 100 10/04/24 03:30 82 18 119/69 100 10/04/24 03:15 77 18 106/67 99 10/04/24 03:00 71 16 106/67 98 10/04/24 02:34 79 10/04/24 02:30 81 16 108/74 100 10/04/24 02:00 71 16 109/71 99 10/04/24 01:45 110 H 16 115/94 99 10/04/24 01:18 104 H 16 133/93 100 O2 Del Method 10/04/24 07:27 Room Air 10/04/24 04:35 Room Air 10/04/24 03:30 Room Air 10/04/24 03:15 Room Air 10/04/24 03:00 Room Air 10/04/24 02:34 10/04/24 02:30 Room Air 10/04/24 02:00 Room Air 10/04/24 01:45 Room Air 10/04/24 01:18 Room Air Laboratory Results 10/04/24 00:30 10/04/24 00:30 PG Care Time/CCT Total # of Minutes Spent Total Time Spent with Patient: Total time spent is greater than 50% in coordination of care (as documented) at patient's floor/unit and/or counseling patient: Coding Level of Care Code 33796 SUB INP/OBS CARE 3/50MIN Diagnoses Complicated urinary tract infection N39.0 Paraplegia G82.20 Anxiety state F41.1 History of intravenous drug abuse Z87.898
[2024-10-04] MEDS: LORazepam 2 MG/1 ML VIAL IV PRN (12:30)
[2024-10-04] MEDS: DEXTROSE 5% IV SCH (12:52)
[2024-10-04] MEDS: TOBRAMYCIN SULFATE IV SCH (12:52)
[2024-10-04] MEDS: KETOROLAC 30 MG/ML VIAL IV PRN (14:06)
--- NOTE | 2024-10-04 15:37 | Discharge Summary ---
Discharge Summary Date of Service October 04, 2024 Principal Dx & Hospital Course #1 = Principal Diagnosis (1) Complicated urinary tract infection: Chronic indwelling Fulton catheter due to paraplegia. Recurrent UTIs. She states that the only antibiotic that works and that she can tolerate is intravenous tobramycin. Urine culture obtained in [place] on September 29 of this year reveals stenotrophomonas. Sensitivities are available for this bacteria. Blood and urine culture results obtained at this hospital are still pending. I discussed treatment options at length with the hospital pharmacist. She did not tolerate the intravenous Bactrim or Cipro. I opted for oral Levaquin therapy. Fulton has been changed. (2) Paraplegia: Patient is scheduled to see Neurology on 10/10/24. 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 Chronic neuropathic pain distally from the injury. Keflex was going to be held while she was on antibiotics here but she stated she had to stay on the cephalexin. (3) Anxiety state: Currently tearful and agitated. She states that the only thing that helps is intravenous lorazepam. (4) History of intravenous drug abuse: She is on Subutex daily. This will continue. Plan The patient and family have opted to leave this facility AGAINST MEDICAL ADVICE. A prescription for p.o. Levaquin has been sent to her local pharmacy for daily use if she desires. Admission HPI Per Admitting Provider Sona Ybarra is a 43yo female with history of Paraplegia, T6-T7 osteomyelitis and T7-T8 epidural abscess s/p surgical intervention with hardware in place and indwelling Fulton catheter presenting from home with several days of nerve pain and UTI. Patient reports the feeling of "nerve pain" worsening over the last several days. This pain is a pressure and tightness involving her entire paralyzed area - reports feeling of tightness in her mid-abdomen and upper back, lower back as well as tightness, burning and cold sensation in her legs bilaterally R > L. Patient typically experiences this quality of pain when she has a UTI. She was seen at [facility] on 09/29/24 with these complaints. She had a UA and culture performed which revealed moderate LE, 21 WBC and few bacteria - culture was POSITIVE for >100,000 CFU of Stenotrophomonas maltophilia which is susceptible to Levaquin/Minocycline and Bactrim. She was given a prescription for Ciprofloxacin which she was taking - reports initial improvement in her symptoms but then recurrence of her severe nerve pain. She did return to [facility] but left without being seen due to long wait times. She was seen by her PCP and her antibiotics were changed to Bactrim on 10/02/24. She reports taking several doses of the Bactrim but continued to have worsening of the nerve pain. Patient complaining of ongoing nerve pain as well as chills and some nausea. No additional complaints at this time. In the ER she is afebrile, HD stable ER Course: Ativan Levaquin Hydrocodone/Tylenol Cefepime NSS x 1L Discharge Exam General-alert and oriented x3, no fever, no chills HEENT-head atraumatic and normocephalic, pupils equal and reactive to light, extraocular muscles intact Neck-no lymphadenopathy or thyromegaly, trachea midline Chest-clear to auscultation. No rales, wheezing or rhonchi Cardiac-regular rate and rhythm, normal S1 and S2 Abdomen-normal bowel sounds, no hepatosplenomegaly Extremities-no cyanosis, clubbing, or edema Neuro-cranial nerves II through XII intact, chronic bilateral lower extremity paraplegia. Chronic neuralgia bilateral lower extremities. Psych-tearful and agitated Discharge Plan Discharge Items Patient Disposition: Home - Self-Care Reason For Visit: UTI, NERVE PAIN Discharge Diagnosis: Stenotrophomonas CAUTI, peripheral neuralgia Activity: Resume your previous activity Non-emergency contact: Primary Care Provider Call non-emergency contact if: your symptoms worsen Follow-up/Referrals: Emiliano Marie [Primary Care Provider] - Diet: Regular Addtl Attending Provider Instructions: Continue Levaquin 750 mg daily for 10 days. A prescription has been sent to your [facility] pharmacy. All other medications remain the same. See your primary care provider soon as possible Pending Studies at Discharge: Yes Studies:: Final blood culture and urine culture results Stand-Alone Forms: My [facility] [employer], Smoking Cessation Medications and DC Order Prescriptions: New levofloxacin 750 mg Tablet 750 mg PO DAILY Qty: 10 0RF Continued cyanocobalamin (vitamin B-12) [Vitamin B-12] 1,000 mcg Tablet 1,000 mcg PO DAILY lorazepam [Ativan] 0.5 mg tablet 0.5 mg PO Q8H PRN (Reason: anxiety) Qty: 14 0RF lorazepam 0.5 mg tablet 0.5 mg PO .30 MIN BEFORE MRI ondansetron 4 mg tablet,disintegrating 4 mg PO Q4 PRN (Reason: n/v) Senna-S 3 tab PO BID sulfamethoxazole-trimethoprim 800-160 mg tablet 1 tab PO BID baclofen 20 mg tablet 20 mg PO QID cephalexin 500 mg capsule 500 mg PO UD gabapentin 300 mg capsule 800 mg PO TID buprenorphine HCl 8 mg tablet, sublingual 8 mg SUBLINGUAL TID albuterol sulfate 90 mcg/actuation HFA aerosol inhaler 1 puff INHALATION Q4 PRN (Reason: Shortness Of Breath Or Wheezing) gabapentin 600 mg tablet 600 mg PO PM Rx Instructions: Patient takes Gabapentin 800mg po qAM, afternoon and at sleep. She takes 600mg in the evening Discharge Orders: Discharge Order (Routine); Ordered 10/04/24 Ordered By: Virgilio Buenrostro Admission Data Admit Date/Time: 10/04/24 03:07 Attending Provider: Virgilio Buenrostro Admit Provider: Heike Kam Primary Care Provider: Emiliano Marie Other Providers: Heike Kam Hospital Stay Data Consultations 10/04/24 02:40 ED Decision to Admit Stat 10/04/24 09:47 Consult Patient Rep [Consult Patient Services] Routine Pending Results Patient Have Any Pending Studies at Discharge: Yes Discharge Instructions Given to Patient (Per Discharging Provider) Continue Levaquin 750 mg daily for 10 days. A prescription has been sent to [facility] pharmacy. All other medications remain the same. See your primary care provider soon as possible Total Time Total Time Spent Total Time Spent (In Minutes): 50 minutes Coding Level of Care Code 61782 INP/OBS DISCH >30 MIN Diagnoses Complicated urinary tract infection N39.0 Paraplegia G82.20 Anxiety state F41.1 History of intravenous drug abuse Z87.898
[2024-10-04] MEDS: GABAPENTIN 600 MG TAB PO SCH (18:01)
[2024-10-04] MEDS ORDERED: GABAPENTIN 600 MG TAB PO SCH (21:00)
[2024-10-04] MEDS ORDERED: levoFLOXacin 750 MG TAB PO SCH (22:00)
== END 2024-10-04 19:28 | disposition home or self-care (01) ==
LOC: 3N 21:41 → ED 21:41 → SUATTDRO 10-04 03:07 → 3N 10-04 03:43

== ENCOUNTER 2025-06-04 13:24 | Observation (INO) ==
--- NOTE | 2025-06-04 14:58 | Emergency Department Note ---
Impression & Plan Complicated urinary tract infection, Paraplegia ED Provider Note CHIEF COMPLAINT: Doctor referral HISTORY OF PRESENTING ILLNESS: The patient is a pleasant 44-year-old female who arrives to the emergency department for evaluation of possible urinary tract infection. Patient history of paraplegia. She has indwelling Fulton catheter. She states she was evaluated here in April, due to concern for UTI and provided a urine sample. She reports she was provided Cipro, however, when she saw the culture results on her portal, the culture was inconclusive due to contamination, and no sensitivities were provided. She remains symptomatic. She reports she went to her primary care provider, at [facility], due to generally feeling unwell, continued sensation of UTI, and nerve pain, which typically is indicative of a urinary tract infection, and provided a urine sample, which grew Enterococcus faecium. She states sensitivities of the culture more to daptomycin, linezolid, and vancomycin. She reports she was given linezolid on an outpatient basis, however it caused her severe GI upset and she was unable to tolerate it. She states she contacted her provider, who informed her to come to the emergency department as the other medications or IV preparation only. She reports symptoms have persisted throughout. She denies fever, nausea, or vomiting. REVIEW OF SYSTEMS: See HPI for pertinent positives and pertinent negatives. ALLERGIES: See below MEDICATIONS: See below PAST MEDICAL HISTORY: See below PHYSICAL EXAM: VITALS: Vitals are noted on the nurse's note and reviewed by myself. Vital signs stable GENERAL: 44-year-old female, in no acute distress, nondiaphoretic, well- developed well-nourished. SKIN: The skin was without rashes, erythema, edema, or bruising. HEAD: Normocephalic atraumatic. HEART: Regular rate and rhythm without murmurs gallops or rubs. LUNGS: Clear to auscultation bilaterally without wheezes, rales or rhonchi. No retractions or accessory muscle use. ABDOMEN: Positive bowel sounds x 4. Soft, tenderness to palpation in suprapubic region, no rebound tenderness or guarding. NEURO: Patient was alert and oriented to person place and time. DIFFERENTIAL DIAGNOSIS: Sepsis, UTI, pneumonia, metabolic, electrolyte abnormalities, cardiac sources, intracerebral event, toxicologic, neurologic, as well as other pathologies. ED COURSE AND MEDICAL DECISION MAKING: MEDICATIONS GIVEN: IV daptomycin 10 mg/kg weight-based dosing INTERPRETATION OF LABS: I interpreted the labs with full lab results as below in the lab section of this note. Pertinent lab results discussed in the MDM section below. INTERPRETATION OF IMAGING: Imaging studies were interpreted by myself and read by radiology as per the imaging section of this note. EXTERNAL RECORDS REVIEWED: Urinalysis, culture, with sensitivities reviewed from [facility] CHRONIC MEDICAL/SOCIAL CONDITIONS AFFECTING CARE: Paraplegia, indwelling Fulton catheter MDM SUMMARY: The patient is a pleasant, 44-year-old female who arrives to the emergency department for evaluation of the above-stated complaint. Saline lock was established, sepsis workup was obtained. Lab work ordered, however pending upon admission. Urinalysis will be obtained after removal and placement of new Fulton catheter. Patient will be provided weight-based dosing of daptomycin post blood cultures being obtained, and urinalysis being obtained. Patient will require admission to the hospital for set up of IV antibiotics on an outpatient basis, and PICC line placement. Patient was admitted to the [facility] hospitalist service. Dr. Eldridge agreed to evaluate and accept the patient for admission. Please refer to their documentation for further patient workup and care. DIAGNOSIS: Complicated UTI The chart was completed utilizing [employer] Speech voice recognition software. Grammatical errors, random word insertions, pronoun errors, and incomplete sentences are an occasional consequence of this system due to software limitations, ambient noise, and hardware issues. Any formal questions or concerns about the content, text, or information contained within the body of this dictation should be directly addressed to the provider for clarification. TREATMENT PLAN/DISCHARGE INSTRUCTIONS: Admit to hospitalist service for initiation of IV antibiotics. Past Med/Surg History Problem List (Updated 06/04/25 @ 16:58 by DEEJAY Calderon) Paraplegia (Acute) Anxiety state (Acute) Complicated urinary tract infection (Acute) Medical History History of intravenous drug abuse Pressure ulcer Scarring of lung IV drug abuse Surgical History No pertinent past surgical history Social History Smoking Status: Current every day smoker Tobacco Type: Cigarettes and E-cigarettes / Vaping Cigarettes Per Day: 1/2 pack; Second Hand Exposure: No; Do You Dip or Chew Tobacco: No; Hx Alcohol Use: No Hx Substance Use: Yes Non-Prescribed Medications: Heroin Non-Prescribed Medications Comment: fentanyl Substance Use Type Other:: medical marijuana Preferred Language: Turkish Communication Ability: Effective Terminal Operations Manager Required: No Beliefs That Will Affect Care: None Current Living Situation: Family Feels Safe at Home: Yes Assistive Devices: Glasses, Slide Board and Wheelchair Allergies Allergies Allergy/AdvReac Type Severity Reaction Status Date / Time naloxone Allergy Intermediate hives, Unverified 03/02/25 15:13 rash, upset stomach Home Meds Home Medications Medication Instructions Recorded Confirmed Senna-S 4 tab PO BID 05/13/24 03/02/25 ondansetron 4 mg disintegrating 4 mg PO Q4 PRN n/v 05/13/24 03/02/25 tablet albuterol sulfate 90 mcg/actuation 1 puff inhalation Q4 PRN Shortness 10/04/24 03/02/25 aerosol inhaler Of Breath Or Wheezing baclofen 20 mg tablet 20 mg PO QID 10/04/24 03/02/25 buprenorphine HCl 8 mg sublingual 8 mg sublingual BID 10/04/24 03/02/25 tablet cephalexin 500 mg capsule 500 mg PO TID 10/04/24 03/02/25 gabapentin 300 mg capsule 800 mg PO TID 10/04/24 03/02/25 gabapentin 600 mg tablet 600 mg PO PM 10/04/24 03/02/25 ibuprofen 125 mg-acetaminophen 250 2 tab PO QID 03/02/25 03/02/25 mg tablet (Advil Dual Action) Previous Rx's Medication Instructions Recorded lidocaine 5 % topical patch 1 patch topical DAILY PRN pain #15 04/16/25 ea methylprednisolone 4 mg tablets in See Rx Instructions .Route 04/16/25 a dose pack .COMPLEX #21 ea ciprofloxacin HCl 500 mg tablet 500 mg PO BID #14 tabs 05/10/25 (Cipro) Results & Data (ED) Vital Signs Vital Signs - 24 hr 06/04/25 13:32 06/04/25 15:50 Temperature 36.6 C Temperature Source Temporal Artery Scan Pulse Rate 128 H Pulse Rate [Finger] 73 Respiratory Rate 18 16 Respiratory Effort / Characteristics Non-Labored Spontaneous Non-Labored Spontaneous Respiratory Depth Normal Blood Pressure 131/81 Blood Pressure [Left Arm] 127/80 Blood Pressure Mean 97 Blood Pressure Mean [Left Arm] 95 Pulse Oximetry 99 99 Oxygen Delivery Method Room Air Room Air Sepsis Recent Fever Within 48 Hours No Sepsis New/Unexplained Change in Mental Status No Sepsis Action Taken by Nursing No Action Required Home Medications Current Medication List: was personally reviewed by me Laboratory Data Attestation: I reviewed the patient's lab results. Discharge Plan Visit Data Chief Complaint: Referred by Doctor Stated Complaint: REF BY DOC ED Provider: Carlos Camara ED Midlevel Provider: Yuki Mckeon Discharge Problem: Complicated urinary tract infection, Paraplegia Patient Disposition: Admitted As Inpatient Condition: Fair Forms Stand Alone Forms: My [facility] [place] [employer] Prescriptions Prescriptions: No Action ondansetron 4 mg tablet,disintegrating 4 mg PO Q4 PRN (Reason: n/v) Senna-S 4 tab PO BID baclofen 20 mg tablet 20 mg PO QID cephalexin 500 mg capsule 500 mg PO TID gabapentin 300 mg capsule 800 mg PO TID buprenorphine HCl 8 mg tablet, sublingual 8 mg SUBLINGUAL BID albuterol sulfate 90 mcg/actuation HFA aerosol inhaler 1 puff INHALATION Q4 PRN (Reason: Shortness Of Breath Or Wheezing) gabapentin 600 mg tablet 600 mg PO PM Rx Instructions: Patient takes Gabapentin 800mg po qAM, afternoon and at sleep. She takes 600mg in the evening ibuprofen-acetaminophen [Advil Dual Action] 125-250 mg Tablet 2 tab PO QID lidocaine 5 % adhesive patch,medicated 1 patch TOP DAILY PRN (Reason: pain) Qty: 15 0RF Rx Instructions: leave on most painful area for 12 hrs methylprednisolone 4 mg tablets,dose pack See Rx Instructions .ROUTE .COMPLEX Qty: 21 0RF Rx Instructions: Please follow instructions per blister pack. ciprofloxacin HCl [Cipro] 500 mg tablet 500 mg PO BID Qty: 14 0RF Referrals Referrals: Emiliano Marie [Primary Care Provider] -
--- NOTE | 2025-06-04 16:48 | History & Physical Report ---
Date of Service June 04, 2025 Assessment & Plan (1) Complicated urinary tract infection: (2) Paraplegia: (3) History of osteomyelitis: Plan This patient is a 44-year-old female with PMH of paraplegia, chronic indwelling Fulton, and recurrent complicated UTIs. She presented on 06/04 at the behest of her PCP after a urine culture showed growth of Enterococcus faecalis with sensitivity to Dapto/vancomycin. Patient tried to take linezolid as an outpatient, but did not tolerate the medication (headache, nausea and vomiting after taking). Coming in for IV antibiotics and would prefer MTU set up if possible (rather than PICC line placement) #Urinary tract infection | h/o complicated UTIs Failure of outpatient p.o. antibiotics (linezolid) Labs unremarkable unremarkable: no leukocytosis, PCT and lactate WNL Afebrile on arrival; VSS; not septic Clinically, patient endorses suprapubic pressure, general unwellness, and neurologic pain with radiation down the lower extremities (which is common for her whenever she develops UTIs) UCx 05/24 grew: Enterococcus faecalis (sensitive only to daptomycin, vancomycin, and linezolid), as well as Adeline albicans (sensitive to fluconazole, voriconazole; suspected contaminant) Review of past UCxs: Pseudomonas aeruginosa (on 05/13/2024) resistant to cefepime, as well as Staph aureus (on 03/28/2023) sensitive to Dapto/vancomycin Will plan for Fulton exchange on 06/04 after starting IV daptomycin Initiate IV daptomycin q24h Patient would prefer to avoid PICC line if possible Will plan to touch base with case management to set up MTU #Paraplegia | chronic indwelling Fulton catheter Noted; Daily Fulton catheter management #Neuropathic pain Continue gabapentin, baclofen #History of osteomyelitis Continue Keflex 500 mg p.o. 3 times daily Disposition: Obs - admit to [facility] VTE PPx: Lovenox 40 mg SQ q24h History of Present Illness Chief Complaint: Referred by doctor Primary Care Provider: Emiliano Marie Mrs. Ybarra is a 44-year-old female with PMH of paraplegia, complicated UTIs, and anxiety. She presented on 06/04 at the behest of her PCP. Patient has had an ongoing UTI since April. Originally, she came to [place] and was prescribed ciprofloxacin and sent home; her urine culture at that time was reportedly contaminated; recollection was recommended. She had a repeat urine culture obtained on May 24, which later grew Enterococcus faecalis with sensitivity to only linezolid, vancomycin, and daptomycin. Urine culture also grew Adeline albicans sensitive to fluconazole and voriconazole. Patient was started on Zyvox on 05/29 as an outpatient. However taking the Zyvox made her feel really sick. She developed headaches, and would develop nausea and vomiting and was unable to keep down Zyvox. Additionally, she reports that, "the more [she] took it, the worse [her] symptoms got". She is coming in today at the behest of her PCP for IV antibiotics. Patient has history of recurrent UTIs. She is paralyzed from the waist down, but does develop a neurologic pain whenever she develops a UTI. Yesterday she felt a "upper kick" in her pain, and woke up feeling even worse. Patient takes gabapentin and Advil dual action for her pain, but this has been an ongoing issue over the past year. She also had a trial of the spinal cord stimulator, but this did not help. Patient took her regular morning medicine today. No recent change in medications. She takes Kef marce 500 mg 3 times daily for history of osteomyelitis. She has a chronic indwelling Fulton, which was last changed on May 29 just prior to starting the Zyvox. Vital stable at time of admission. ED course: Daptomycin 625 mg IV ROS: Patient endorses nausea/vomiting (from abx), sediment in her Fulton catheter, suprapubic tenderness, abdominal "heaviness" (not cramps), and neurologic pain in the legs. Patient denies fever, chills, night-sweats, chest pain, SOB, chest palpitations, cough, pleuritic CP, or abdominal pain. Allergies Allergy/AdvReac Type Severity Reaction Status Date / Time naloxone Allergy Intermediate hives, Unverified 03/02/25 15:13 rash, upset stomach Home Medications Medication Instructions Recorded Confirmed Type ondansetron 4 mg disintegrating 4 mg PO Q4 PRN n/v 05/13/24 06/04/25 History tablet albuterol sulfate 90 mcg/actuation 1 puff inhalation Q4 PRN Shortness 10/04/24 06/04/25 History aerosol inhaler Of Breath Or Wheezing baclofen 20 mg tablet 20 mg PO QID 10/04/24 06/04/25 History buprenorphine HCl 8 mg sublingual 8 mg sublingual BID 10/04/24 06/04/25 History tablet cephalexin 500 mg capsule 500 mg PO TID 10/04/24 06/04/25 History ibuprofen 125 mg-acetaminophen 250 2 tab PO QID 03/02/25 06/04/25 History mg tablet (Advil Dual Action) lidocaine 5 % topical patch 1 patch topical DAILY PRN pain #15 04/16/25 06/04/25 Rx ea gabapentin 800 mg tablet 800 mg PO TID 06/04/25 06/04/25 History linezolid 600 mg tablet 600 mg PO Q12H 06/04/25 06/04/25 History Past Med/Surg History Problem List (Updated 06/04/25 @ 17:40 by Miguel Barroso PA-C) History of osteomyelitis Paraplegia (Acute) Anxiety state (Acute) Complicated urinary tract infection (Acute) Medical History History of intravenous drug abuse Pressure ulcer Scarring of lung IV drug abuse Surgical History No pertinent past surgical history Social History Smoking Status: Current every day smoker Tobacco Type: Cigarettes and E-cigarettes / Vaping Cigarettes Per Day: 1/2 pack; Second Hand Exposure: No; Do You Dip or Chew Tobacco: No; Hx Alcohol Use: No Hx Substance Use: Yes Non-Prescribed Medications: Heroin Non-Prescribed Medications Comment: fentanyl Substance Use Type Other:: medical marijuana Preferred Language: Persian Communication Ability: Effective Technician Support Association Required: No Beliefs That Will Affect Care: None Current Living Situation: Family Feels Safe at Home: Yes Assistive Devices: Glasses, Slide Board and Wheelchair Review of Systems Review of Systems: See HPI above Physical Exam Physical Exam: General: no acute distress; pleasant affect; anxious/tearful; non-toxic appearing; well-nourished; cooperative; SpO2 99% on RA HEENT: normocephalic, atraumatic; no scleral icterus; PERRLA; vision and hearing intact Neck: supple; no lymphadenopathy; trachea midline Skin: warm, dry without signs of tenting; no cyanosis; no rashes, bruising, lesions, or erythema noted CV: chest wall NTP; RRR; S1/S2 normal; no murmurs/rubs/gallops; pulses intact and symmetric at radial, DP, and PT Lungs: no acute respiratory distress; symmetrical chest wall expansion; clear breath sounds across all lung leon w/o adventitious sounds; no wheezing ABD: Soft, NTP in all 4 quadrants; BS present; no rebound/guarding; no distention; no rashes or bruising appreciated the abdomen flanks bilaterally : Negative suprapubic tenderness MSK: no tics or fasciculations; atrophy of the lower EXTR bilaterally Neuro: A&Ox3; paraplegia of the lower extremities bilaterally; normal mood and affect; fluent speech Results & Data Results & Data Vital Signs (Past 12 Hours) Vital Signs Temp Pulse Pulse Resp BP BP Pulse Ox 06/04/25 15:50 73 16 127/80 99 06/04/25 13:32 36.6 C 128 H 18 131/81 99 O2 Del Method 06/04/25 15:50 Room Air 06/04/25 13:32 Room Air Laboratory Results Abnormal lab results 06/04/25 Range/Units 16:59 RBC 4.19 L (4.20-5.40) M/uL Sodium 133 L (136-145) mmol/L BUN 5 L (6-23) mg/dl Creatinine 0.53 L (0.6-1.2) mg/dl BUN/Creatinine Ratio 9.4 L (10-20) Code Status & VTE Plan Code Status Full code VTE Prophylaxis Plan VTE Prophylaxis will be ordered: Yes Supervising Physician Co-Signing Physician Notes I personally examined the patient and verified all maldonado points of history and exam, discussed case, and agree with decision making with Uzair Barroso PA-C complicated UTI. could not tolerate PO zyvox. vitals noted, in general she is awake and alert pleasant no distress. HEENT normocephalic atraumatic mucous membranes moist. Breathing unlabored no accessory muscle use good effort. Skin without rashes pallor or icterus. Complicated UTIunable to tolerate p.o. Zyvox. Daptomycin. Change Fulton. Set up at [facility]U. Hopefully home tomorrow. PG Care Time/CCT Total # of Minutes Spent Total Time Spent with Patient: Total time spent is greater than 50% in coordination of care (as documented) at patient's floor/unit and/or counseling patient: [place] [address] INT INP/OBS CARE MIN Patient Type Established Medical Decision Making Moderate Complexity Diagnoses Complicated urinary tract infection N39.0 Paraplegia G82.20 History of osteomyelitis Z87.39
[2025-06-04 17:24] LABS: Hematocrit (blood only) 38.1 % (37.0-47.0); Hemoglobin 12.9 g/dl (12.0-16.0); Immature Granulocytes # (auto) 0.01 K/uL (0.01-0.20); Immature Granulocytes % (auto) 0.2 %; Mean Corpuscular Hemoglobin 30.8 pg (25.0-34.0); Mean Corpuscular Volume 90.9 fL (80.0-100.0); Platelet Count 248 K/uL (130-400); RDW Standard Deviation 38.7 fL (36.4-46.3); Red Blood Count 4.19 M/uL (4.20-5.40); White Blood Count 5.27 K/ul (4.8-10.8)
[2025-06-04 17:40] LABS: Alanine Aminotransferase 14.0 U/L (7-52); Albumin Globulin Ratio 1.3 (0.9-2); Alkaline Phosphatase 49.0 U/L (34-104); Anion Gap 8.0 (3-11); Bilirubin,Total 0.3 mg/dl (0.2-1.0); Blood Urea Nitrogen 5.0 mg/dl (6-23); Calcium 9.3 mg/dl (8.6-10.3); Carbon Dioxide 25.0 mmol/L (21-32); Chloride 100.0 mmol/L (98-107); Creatinine Clr Calc Pharmacy 124.4 ml/min; Globulin 3.5 gm/dl (2.5-4.0); Glucose 91.0 mg/dl (70-99(Fasting)); Potassium 3.9 mmol/L (3.5-5.1); Sodium 133.0 mmol/L (136-145); Total Protein 7.9 gm/dl (6.0-8.3)
[2025-06-04] MEDS: DAPTOmycin 625 MG in SYRINGE 0 ML IV ONE (18:45)
[2025-06-04 18:46] LABS: Appearance Urine Clear (Clear); Bacteria Urine Automated None Seen (None Seen); Cast Urine Automated 0-2 /lpf (0-2); Epithelial Cell Urine Auto 0-2 /hpf (0-2); Glucose Urine UA Negative (Negative); WBC Urine Automated 0-5 /hpf (0-5)
[2025-06-04] MEDS ORDERED: MELATONIN 3 MG TAB PO PRN (20:12)
[2025-06-04] MEDS ORDERED: ALBUTEROL HFA 8 GM INHALER INH PRN (20:12)
[2025-06-04] MEDS ORDERED: ACETAMINOPHEN 325 MG TAB PO PRN (20:12)
[2025-06-04] MEDS ORDERED: ONDANSETRON INJ 2 MG/ML 2 ML VIAL IV PRN (20:12)
[2025-06-04] MEDS: BACLOFEN 20 MG TAB PO SCH (21:19)
[2025-06-04] MEDS: ENOXAPARIN INJ 40 MG/0.4 ML SYR SQ SCH (21:20)
[2025-06-04] MEDS: GABAPENTIN 800 MG TAB PO SCH (21:20)
[2025-06-05 07:08] VITALS: PULSE 88; RESP 14; TEMP 98.6; O2SAT 97
[2025-06-05 08:17] LABS: Hematocrit (blood only) 37.8 % (37.0-47.0); Hemoglobin 13.2 g/dl (12.0-16.0); Mean Corpuscular Hemoglobin 32.0 pg (25.0-34.0); Mean Corpuscular Volume 91.7 fL (80.0-100.0); Platelet Count 214 K/uL (130-400); RDW Standard Deviation 39.5 fL (36.4-46.3); Red Blood Count 4.12 M/uL (4.20-5.40); White Blood Count 4.19 K/ul (4.8-10.8)
[2025-06-05 08:59] LABS: Anion Gap 5 (3-11); Blood Urea Nitrogen 6 mg/dl (6-23); Calcium 8.9 mg/dl (8.6-10.3); Carbon Dioxide 26 mmol/L (21-32); Chloride 105 mmol/L (98-107); Creatinine Clr Calc Pharmacy 129.3 ml/min; Glucose 86 mg/dl (70-99(Fasting)); Sodium 136 mmol/L (136-145)
[2025-06-05] MEDS: IBUPROFEN 200 MG TAB PO STA (13:05)
--- NOTE | 2025-06-05 14:56 | Discharge Summary ---
Discharge Summary Date of Service June 05, 2025 Principal Dx & Hospital Course #1 = Principal Diagnosis (1) Complicated urinary tract infection: (2) Paraplegia: (3) History of osteomyelitis: Plan This patient is a 44-year-old female with PMH of paraplegia, chronic indwelling Fulton, and recurrent complicated UTIs. She presented on 06/04 at the behest of her PCP after a urine culture showed growth of Enterococcus faecalis with sensitivity to Dapto/vancomycin. Patient tried to take linezolid as an outpatient, but did not tolerate the medication (headache, nausea and vomiting after taking). Coming in for IV antibiotics and would prefer MTU set up if possible (rather than PICC line placement). Day of discharge 06/05: Patient is mildly hypotensive at 103/62 at time of discharge; vitals otherwise stable. Patient is happy to report that her abdominal "heaviness" is a lot guide setter today when compared to yesterday. She feels that the IV daptomycin has been helping with her symptoms. Overall, she feels like she is fairly asymptomatic, and feels safe to return home so long as she is able to receive IV antibiotics as an outpatient via MTU. Patient denies any prior history of pyelonephritis. She does endorse chronic back pain, which she attributes to a slipped disc in L4/L5, but reports no changes in her back pain over the past several weeks. Patient reports she does have sensation in her back. ROS: Patient endorses abdominal heaviness (improving), chronic back pain, and neurologic pain in her legs which is common whenever she gets a UTI (improving) Patient denies fever, chills, night-sweats, chest pain, SOB, chest palpitations, cough, pleuritic CP, or abdominal pain. #Urinary tract infection | h/o complicated UTIs Failure of outpatient p.o. antibiotics (linezolid) She took approximately 3-4 days of linezolid prior to coming in, but did not tolerate Labs unremarkable unremarkable: no leukocytosis, PCT and lactate WNL Afebrile on arrival; VSS; not septic On arrival, patient endorsed suprapubic pressure, general unwellness, and neurologic pain with radiation down the lower extremities (which is common for her whenever she develops UTIs) She reports substantial improvement on day of discharge 06/05 UCx 05/24 grew: Enterococcus faecalis (sensitive only to daptomycin, vancomycin, and linezolid), as well as Adeline albicans (sensitive to fluconazole, voriconazole; suspected contaminant) Will plan for Fulton exchange on 06/04 after starting IV daptomycin Patient received daptomycin IV x 2 days in the hospital Touched base with case management to set up MTU on 06/05 Per nursing, patient has had an ultrasound-guided IV placed Patient is set for her next dose of daptomycin 400 mg IV on 06/06 at 1400 Written Rx provided to case management for daptomycin 400 mg IV x 5 additional days #Paraplegia | chronic indwelling Fulton catheter Noted; Daily Fulton catheter management #Neuropathic pain Continue gabapentin, baclofen #History of osteomyelitis Continue Keflex 500 mg p.o. 3 times daily Disposition: Discharge to home with daily MTU visits for IV antibiotic between 06/06 and 06/10 Notes For Next Care Provider Patient came in for complicated UTI. Outpatient urine culture drawn on 05/24 growing Enterococcus faecalis with resistance to antibiotics except Zyvox, daptomycin, and vancomycin. Patient failed Zyvox as an outpatient. She came in for IV daptomycin. After her first dose of IV daptomycin, her Fulton was exchanged. She will require IV daptomycin x full 7 day course. Not septic. No leukocytosis. Safe to receive IV daptomycin every 24 hours IV MTU. Admission HPI Per Admitting Provider Mrs. Ybarra is a 44-year-old female with PMH of paraplegia, complicated UTIs, and anxiety. She presented on 06/04 at the behest of her PCP. Patient has had an ongoing UTI since April. Originally, she came to [place] and was prescribed ciprofloxacin and sent home; her urine culture at that time was reportedly contaminated; recollection was recommended. She had a repeat urine culture obtained on May 24, which later grew Enterococcus faecalis with sensitivity to only linezolid, vancomycin, and daptomycin. Urine culture also grew Adeline albicans sensitive to fluconazole and voriconazole. Patient was started on Zyvox on 05/29 as an outpatient. However taking the Zyvox made her feel really sick. She developed headaches, and would develop nausea and vomiting and was unable to keep down Zyvox. Additionally, she reports that, "the more [she] took it, the worse [her] symptoms got". She is coming in today at the behest of her PCP for IV antibiotics. Patient has history of recurrent UTIs. She is paralyzed from the waist down, but does develop a neurologic pain whenever she develops a UTI. Yesterday she felt a "upper kick" in her pain, and woke up feeling even worse. Patient takes gabapentin and Advil dual action for her pain, but this has been an ongoing issue over the past year. She also had a trial of the spinal cord stimulator, but this did not help. Patient took her regular morning medicine today. No recent change in medications. She takes Keflex 500 mg 3 times daily for history of osteomyelitis. She has a chronic indwelling Fulton, which was last changed on May 29 just prior to starting the Zyvox. Vital stable at time of admission. ED course: Daptomycin 625 mg IV ROS: Patient endorses nausea/vomiting (from abx), sediment in her Fulton catheter, suprapubic tenderness, abdominal "heaviness" (not cramps), and neurologic pain in the legs. Patient denies fever, chills, night-sweats, chest pain, SOB, chest palpitations, cough, pleuritic CP, or abdominal pain. Admission Exam Per Admitting Provider General: no acute distress; pleasant affect; anxious/tearful; non-toxic appearing; well-nourished; cooperative; SpO2 99% on RA HEENT: normocephalic, atraumatic; no scleral icterus; PERRLA; vision and hearing intact Neck: supple; no lymphadenopathy; trachea midline Skin: warm, dry without signs of tenting; no cyanosis; no rashes, bruising, lesions, or erythema noted CV: chest wall NTP; RRR; S1/S2 normal; no murmurs/rubs/gallops; pulses intact and symmetric at radial, DP, and PT Lungs: no acute respiratory distress; symmetrical chest wall expansion; clear breath sounds across all lung leon w/o adventitious sounds; no wheezing ABD: Soft, NTP in all 4 quadrants; BS present; no rebound/guarding; no distention; no rashes or bruising appreciated the abdomen flanks bilaterally : Negative suprapubic tenderness MSK: no tics or fasciculations; atrophy of the lower EXTR bilaterally Neuro: A&Ox3; paraplegia of the lower extremities bilaterally; normal mood and affect; fluent speech Discharge Exam General: no acute distress; pleasant affect; lying on her side in bed; non-toxic appearing; well-nourished; cooperative; SpO2 97% on RA HEENT: normocephalic, atraumatic; no scleral icterus; PERRLA; vision and hearing intact Neck: supple; no lymphadenopathy; trachea midline Skin: warm, dry without signs of tenting; no cyanosis; no rashes, bruising, lesions, or erythema noted CV: chest wall NTP; RRR; S1/S2 normal; no murmurs/rubs/gallops; pulses intact and symmetric at radial, DP, and PT Lungs: no acute respiratory distress; symmetrical chest wall expansion; clear breath sounds across all lung leon w/o adventitious sounds; no wheezing ABD: Soft, NTP in all 4 quadrants; BS present; no rebound/guarding; no distention; no rashes or bruising appreciated the abdomen flanks bilaterally : Negative suprapubic tenderness; back NTP; negative CVA tenderness MSK: no tics or fasciculations; atrophy of the lower EXTR bilaterally Neuro: A&Ox3; paraplegia of the lower extremities bilaterally; normal mood and affect; fluent speech Discharge Plan Discharge Items Patient Disposition: Home - Self-Care Reason For Visit: COMPLICATED UTI REQUIRING IV ABX Discharge Diagnosis: Complicated UTI Condition on Discharge: Fair Activity: Resume your previous activity Non-emergency contact: Primary Care Provider and Urologist Call non-emergency contact if: you have any medication questions, your symptoms worsen, your pain is not controlled, your pain is worsening and you have a fever Follow-up/Referrals: Emiliano Marie [Primary Care Provider] - Diet: Regular Addtl Attending Provider Instructions: You were hospitalized at [facility] from 06/04 - 06/05 due to a complicated UTI. Per the urine culture you provided on admission (which was obtained from [facility] on 05/24), you were growing a bacteria called "Enterococcus", which showed significant antibiotic resistance. This medication was only susceptible to 3 medications: Zyvox, daptomycin, and vancomycin. While you tried to take Zyvox outpatient, you reported that you are unable to tolerate this medication. On arrival, your blood work did not show an elevated white blood cell count to indicate signs of severe infection. Your vital signs remained stable over the course of her hospital stay. For these reasons, we feel that you are safe to be discharged so long as you follow-up with our MTU to receive IV antibiotics daily for the next week. You will require daptomycin 400 mg IV every 24 hours x 7 days. You received your first 2 doses in the hospital. Your next dose is scheduled for 2 PM on 06/06 with the MTU. You will need to complete the full course of this regimen which should be completed on Sunday 06/10. Please plan to follow-up with your PCP in the next 7 to 10 days for a transitional care appointment. If you develop any new or worsening symptoms at home, such as fever, chills, night sweats, intractable suprapubic pain, intractable neurologic pain in your legs, nausea, vomiting, or severe back pain, please return to the emergency room immediately. It was a pleasure taking care of you. Please reach out any questions or aaron rns. Sincerely, The Hospital medicine team at [facility] Pending Studies at Discharge: Yes Studies:: Blood cultures still pending at time of discharge Stand-Alone Forms: My [facility] Medications and DC Order Prescriptions: Continued gabapentin 800 mg tablet 800 mg PO TID ondansetron 4 mg tablet,disintegrating 4 mg PO Q4 PRN (Reason: n/v) baclofen 20 mg tablet 20 mg PO QID cephalexin 500 mg capsule 500 mg PO TID Rx Instructions: Start Date 04/18/2025 x90 day supply buprenorphine HCl 8 mg tablet, sublingual 8 mg SUBLINGUAL BID albuterol sulfate 90 mcg/actuation HFA aerosol inhaler 1 puff INHALATION Q4 PRN (Reason: Shortness Of Breath Or Wheezing) ibuprofen-acetaminophen [Advil Dual Action] 125-250 mg Tablet 2 tab PO QID Patient Comments: Unable to verify OTC meds at this date/time. 06/04/25 lidocaine 5 % adhesive patch,medicated 1 patch TOP DAILY PRN (Reason: pain) Qty: 15 0RF Rx Instructions: leave on most painful area for 12 hrs Discontinued linezolid 600 mg tablet 600 mg PO Q12H Rx Instructions: Start Date 05/29/2025 x10 day supply Discharge Orders: Discharge Order (Routine); Ordered 06/05/25 Ordered By: Miguel Barroso Admission Data Admit Date/Time: 06/04/25 17:44 Attending Provider: Michael Birch Admit Provider: Dagoberto Eldridge Primary Care Provider: Emiliano Marie Other Providers: Dagoberto Eldridge Other Interventions: Discharge Summary Assessment (RN) Last Done: 06/05/25 16:23 Hospital Stay Data Consultations 06/04/25 16:49 ED Decision to Admit Stat Discharge Instructions Given to Patient (Per Discharging Provider) You were hospitalized at [facility] from 06/04 - 06/05 due to a complicated UTI. Per the urine culture you provided on admission (which was obtained from [facility] on 05/24), you were growing a bacteria called "Enterococcus", which showed significant antibiotic resistance. This medication was only susceptible to 3 medications: Zyvox, daptomycin, and vancomycin. While you tried to take Zyvox outpatient, you reported that you are unable to tolerate this medication. On arrival, your blood work did not show an elevated white blood cell count to indicate signs of severe infection. Your vital signs remained stable over the course of her hospital stay. For these reasons, we feel that you are safe to be discharged so long as you follow-up with our MTU to receive IV antibiotics daily for the next week. You will require daptomycin 400 mg IV every 24 hours x 7 days. You received your first 2 doses in the hospital. Your next dose is scheduled for 2 PM on 06/06 with the MTU. You will need to complete the full course of this regimen which should be completed on Sunday 06/10. Please plan to follow-up with your PCP in the next 7 to 10 days for a transitional care appointment. If you develop any new or worsening symptoms at home, such as fever, chills, night sweats, intractable suprapubic pain, intractable neurologic pain in your legs, nausea, vomiting, or severe back pain, please return to the emergency room immediately. It was a pleasure taking care of you. Please reach out any questions or concer ns. Sincerely, The Hospital medicine team at [facility] Total Time Total Time Spent Total Time Spent (In Minutes): 40 Coding [place] [address] INP/OBS DISCH >30 MIN Patient Type Established History Comprehensive Exam Comprehensive Medical Decision Making High Complexity Diagnoses Complicated urinary tract infection N39.0 Paraplegia G82.20 History of osteomyelitis Z87.39
[2025-06-05] MEDS ORDERED: IBUPROFEN 200 MG TAB PO PRN (15:00)
[2025-06-05 16:28] VITALS: BP 103/62
[2025-06-05] MEDS: DAPTOmycin 400 MG in SYRINGE 0 ML IV SCH (16:31)
[2025-06-05] MEDS ORDERED: DAPTOmycin 400 MG in SYRINGE 0 ML IV SCH (18:00)
== END 2025-06-05 18:11 | disposition home or self-care (01) ==
LOC: 3N 13:24 → ED 13:24 → SUATTDRO 17:44 → 3N 19:39

== ENCOUNTER 2025-06-15 22:48 | Inpatient (IN) ==
--- NOTE | 2025-06-15 23:28 | Emergency Department Note ---
History of Present Illness General Chief complaint: Urinary Symptoms Stated complaint: URINARY SYMPTOMS Time Seen by Provider: 06/15/25 22:50 History of Present Illness Maximum Pain Intensity: 5 Mrs. Ybarra is a 44-year-old female with PMH of paraplegia, complicated UTIs, and anxiety. She was admitted on 06/04 for recurrent complicated UTI that has had an ongoing UTI since April. Patient was then discharged and placed on daptomycin [facility] for 7 days and states she normally needs 10 days. She last received her dose on Tuesday. Patient states the symptoms have not cleared up and have gotten worse. She complains of burning and fullness sensation and sediment in her Rivers catheter. Patient denies fevers, vomiting, diarrhea, flulike illness. Home Medications Medication Instructions Recorded Confirmed Type ondansetron 4 mg disintegrating 4 mg PO Q4 PRN n/v 05/13/24 06/16/25 History tablet albuterol sulfate 90 mcg/actuation 1 puff inhalation Q4 PRN Shortness 10/04/24 06/16/25 History aerosol inhaler Of Breath Or Wheezing baclofen 20 mg tablet 20 mg PO QID 10/04/24 06/16/25 History buprenorphine HCl 8 mg sublingual 8 mg sublingual BID 10/04/24 06/16/25 History tablet cephalexin 500 mg capsule 500 mg PO TID 10/04/24 06/16/25 History ibuprofen 125 mg-acetaminophen 250 2 tab PO QID 03/02/25 06/16/25 History mg tablet (Advil Dual Action) lidocaine 5 % topical patch 1 patch topical DAILY PRN pain #15 04/16/25 06/16/25 Rx ea gabapentin 800 mg tablet 800 mg PO TID 06/04/25 06/16/25 History polyethylene glycol 3350 17 17 g PO DAILY 06/16/25 06/16/25 History gram/dose oral powder (Miralax) sennosides 8.6 mg-docusate sodium 4 tab-cap PO AMHS 06/16/25 06/16/25 History 50 mg tablet (Senna-S) Allergies Allergy/AdvReac Type Severity Reaction Status Date / Time naloxone Allergy Intermediate hives, Unverified 06/09/25 08:16 rash, upset stomach Past Med/Surg History Problem List (Updated 06/16/25 @ 01:58 by Raquel Dempsey PA-C) Acute hyponatremia History of osteomyelitis Paraplegia (Acute) Anxiety state (Acute) Complicated urinary tract infection (Acute) Medical History History of intravenous drug abuse Pressure ulcer Scarring of lung IV drug abuse Surgical History No pertinent past surgical history Social History Smoking Status: Current every day smoker Tobacco Type: Cigarettes Cigarettes Per Day: 1-2 cigarettes; Second Hand Exposure: No; Do You Dip or Chew Tobacco: No; Hx Alcohol Use: No Hx Substance Use: Yes Non-Prescribed Medications: Heroin Non-Prescribed Medications Comment: fentanyl Last Used Substance: Days (ago) Last Used Substance Other:: 06/03/25 Substance Use Type Other:: medical marijuana Preferred Language: Yemeni Communication Ability: Effective Net Software Engineer Required: No Beliefs That Will Affect Care: None Current Living Situation: Other Current Living Situation Comment: Roommates Feels Safe at Home: Yes Assistive Devices: Wheelchair and Other Review of Systems A total of 10 systems reviewed and were otherwise negative Physical Exam Vital Signs Vital Signs - 24 hr 06/15/25 22:51 06/15/25 23:16 06/15/25 23:21 Temperature 36.5 C Temperature Source Temporal Artery Scan Pulse Rate 99 H 73 Pulse Rate [Apical] Respiratory Rate 18 20 Respiratory Effort / Characteristics Non-Labored Spontaneous Respiratory Depth Normal Respiratory Pattern Regular Blood Pressure 140/81 127/73 Blood Pressure [Right Arm] Blood Pressure Mean 100 87 Blood Pressure Mean [Right Arm] Blood Pressure Position Sitting Pulse Oximetry 99 100 100 Oxygen Delivery Method Room Air Room Air Room Air Sepsis Recent Fever Within 48 Hours No Sepsis New/Unexplained Change in Mental Status N/A Sepsis Action Taken by Nursing No Action Required 06/15/25 23:30 06/16/25 00:02 06/16/25 00:45 Temperature Temperature Source Pulse Rate 73 73 71 Pulse Rate [Apical] Respiratory Rate 20 20 14 Respiratory Effort / Characteristics Respiratory Depth Respiratory Pattern Blood Pressure 123/77 125/81 100/55 L Blood Pressure [Right Arm] Blood Pressure Mean 89 98 62 Blood Pressure Mean [Right Arm] Blood Pressure Position Pulse Oximetry 100 99 100 Oxygen Delivery Method Room Air Room Air Room Air Sepsis Recent Fever Within 48 Hours Sepsis New/Unexplained Change in Mental Status Sepsis Action Taken by Nursing 06/16/25 01:00 06/16/25 01:30 06/16/25 01:45 Temperature Temperature Source Pulse Rate 81 73 75 Pulse Rate [Apical] Respiratory Rate 20 16 20 Respiratory Effort / Characteristics Respiratory Depth Respiratory Pattern Blood Pressure 93/58 L 104/71 102/61 Blood Pressure [Right Arm] Blood Pressure Mean 69 81 88 Blood Pressure Mean [Right Arm] Blood Pressure Position Pulse Oximetry 99 99 98 Oxygen Delivery Method Room Air Room Air Room Air Sepsis Recent Fever Within 48 Hours Sepsis New/Unexplained Change in Mental Status Sepsis Action Taken by Nursing 06/16/25 02:00 06/16/25 02:31 Temperature Temperature Source Pulse Rate 72 Pulse Rate [Apical] 73 Respiratory Rate 14 20 Respiratory Effort / Characteristics Respiratory Depth Respiratory Pattern Blood Pressure 105/67 Blood Pressure [Right Arm] 103/59 L Blood Pressure Mean 80 Blood Pressure Mean [Right Arm] 73 Blood Pressure Position Pulse Oximetry 99 99 Oxygen Delivery Method Room Air Room Air Sepsis Recent Fever Within 48 Hours Sepsis New/Unexplained Change in Mental Status Sepsis Action Taken by Nursing VITALS: Vitals are noted on the nurse's note and reviewed by myself. Vital signs stable. GENERAL: Pleasant female with Rivers in place and significant other present, in no acute distress, nondiaphoretic, well-developed well-nourished. SKIN: Capillary reflex less than 2 seconds. HEENT: Normocephalic. PERRLA. EOMI. Nares patent. Mucous membranes moist. Neck is supple without nuchal rigidity. HEART: Regular rate and rhythm LUNGS: Clear to auscultation bilaterally without wheezes, rales or rhonchi. No retractions or accessory muscle use. ABDOMEN: Positive bowel sounds x 4. Normal tympanic percussion. Soft, nontender, without masses or organomegaly. Barnett sign negative. No guarding or rebound tenderness. no CVA tenderness MUSCULOSKELETAL: No gross musculoskeletal defects. NEURO: Patient was alert and oriented to person place and time. No new focal neurological deficits. Course Administered Medications Discontinued Medications Sodium Chloride (Nss) 1,000 mls @ 999 mls/hr IV .Q1H1M CARLOS EDUARDO Stop: 06/16/25 00:30 Last Infusion: 06/16/25 00:58 Dose: Infused Documented By: Admin: 06/15/25 23:57 Dose: 999 mls/hr Documented By: FITZ Daptomycin 600 mg/ Syringe 12 mls @ 6 mls/min IV NOW ONE; Protocol Stop: 06/15/25 23:44 Last Admin: 06/16/25 00:04 Dose: 6 mls/min Documented By: FITZ Ioversol (Optiray 320 100ml) 94 ml IV ONCE ONE Stop: 06/15/25 23:32 Last Admin: 06/15/25 23:31 Dose: 94 ml Documented By: ALEXANDRA Medical Decision Making Medical Records Attestation: I reviewed the patient's medical records. Home Medications Current Medication List: was personally reviewed by me Laboratory Data Attestation: I reviewed the patient's lab results. 06/15/25 23:33 06/15/25 23:33 Lab Results 06/15/25 06/15/25 06/15/25 Range/Units 23:25 23:33 23:34 WBC 5.23 (4.8-10.8) K/ul RBC 3.90 L (4.20-5.40) M/uL Hgb 12.5 (12.0-16.0) g/dl Hct 36.4 L (37.0-47.0) % MCV 93.3 (80.0-100.0) fL MCH 32.1 (25.0-34.0) pg MCHC 34.3 (32.0-36.0) g/dL RDW Std Deviation 40.9 (36.4-46.3) fL RDW Coeff of Paulo 11.9 (11.5-14.5) % Plt Count 313 (130-400) K/uL MPV 9.8 (9.4-12.4) fL Immature Gran % (Auto) 0.4 % Neut % (Auto) 54.5 % Lymph % (Auto) 33.8 % [place] % (Auto) 9.4 % Eos % (Auto) 1.7 % Baso % (Auto) 0.2 % Neut # (Auto) 2.85 (1.40-6.50) K/uL Lymph # (Auto) 1.77 (1.20-3.40) K/uL [place] # (Auto) 0.49 (0.11-0.59) K/uL Eos # (Auto) 0.09 (0.00-0.50) K/uL Baso # (Auto) 0.01 (0.00-0.20) K/uL Immature Gran # (Auto) 0.02 (0.01-0.20) K/uL Sodium 138 (136-145) mmol/L Potassium 4.1 (3.5-5.1) mmol/L Chloride 104 (98-107) mmol/L Carbon Dioxide 30 (21-32) mmol/L Anion Gap 4 (3-11) BUN 5 L (6-23) mg/dl Creatinine 0.53 L (0.6-1.2) mg/dl Est Cr Clr Drug Dosing 129.4 ml/min eGFR 118.34 BUN/Creatinine Ratio 9.4 L (10-20) Glucose 97 (70-99(Fasting)) mg/dl Lactate 0.7 (0.4-2.0) mmol/L Calcium 9.1 (8.6-10.3) mg/dl Magnesium 2.1 (1.7-2.4) mg/dl Total Bilirubin 0.2 (0.2-1.0) mg/dl Direct Bilirubin 0.0 (0-0.2) mg/dl AST 13 (13-39) U/L ALT 10 (7-52) U/L Alkaline Phosphatase 45 (34-104) U/L Total Protein 7.1 (6.0-8.3) gm/dl Albumin 4.3 (3.4-5.0) gm/dl Procalcitonin < 0.02 (0-0.5) ng/ml HCG, Qual Negative (Negative) Urine Color Yellow Urine Appearance Clear (Clear) Urine pH 6.5 (4.5-7.5) Ur Specific [place] 1.006 (1.000-1.030) Urine Protein Negative (Negative) Urine Glucose (UA) Negative (Negative) Urine Ketones Negative (Negative) Urine Blood Trace H (Negative) Urine Nitrite Negative (Negative) Urine Bilirubin Negative (Negative) Urine Urobilinogen Negative (Negative) Ur Leukocyte Esterase 1+ H (Negative) Urine WBC (Auto) 6-10 H (0-5) /hpf Urine RBC (Auto) 0-2 (0-2) /hpf U Hyaline Cast (Auto) 0-2 (0-2) /lpf U Epithel Cells (Auto) 0-2 (0-2) /hpf Urine Bacteria (Auto) None Seen (None Seen) Urine Comment Imaging Data Attestation: I personally reviewed and interpreted this imaging study as follows: Radiologist's Impression: Abdomen/Pelvis CT 06/15/25 23:18 EXAM: CT abd pelvis IV con only CLINICAL HISTORY: Lower abd pain, indwelling rivers, freq UTIs TECHNIQUE: CT of the abdomen and pelvis was performed with and without contrast, using the following protocol: axial images were obtained and reconstructed into coronal and sagittal images. One of the following dose reduction techniques was utilized for this exam: automated exposure control, adjustment of the mA and/or kV according to patient size, and use of iterative reconstruction. COMPARISON: Compared to the previous study dated 03/28/2023, revising the previous KUB from 03/02/2025. FINDINGS: Abdomen: Liver: The liver is enlarged in size, measuring 18.7 cm, and has normal shape and density. No focal lesions, cysts, or masses are identified. The hepatic vasculature and biliary ducts are unremarkable. Gallbladder and Biliary System: The gallbladder is surgically removed, with a few metallic clips seen within the operative bed. Prominent intrahepatic biliary radicles are noted, most probably as postoperative sequelae. Pancreas: The pancreatic head, body, and tail are visualized and appear normal in size and density. No pancreatic masses or calcifications are noted. The pancreatic duct is not dilated. Spleen: The spleen is normal in size, shape, and density. No splenic lesions or masses are identified. Appendix: The appendix is normal in size, without periappendiceal fat stranding or appendicolith. There is no evidence of appendiceal abscess or perforation. Kidneys and Adrenal Glands: Both kidneys are normal in size and position. There is subtle bilateral cortical indentation; however, cortical thickness is within normal limits. No renal calculi or hydronephrosis are present. The adrenal glands are unremarkable, with no evidence of masses or hyperplasia. Pelvis: Urinary Bladder: The urinary bladder is empty over a Rivers catheter with subtle smudged fat planes. The bladder was markedly distended in the old study. Uterus: A small fibroid in the left uterine wall measures 1.2 cm. The uterus is normal in size and contour. There is no abnormal thickening. Ovaries: There is a left ovarian thin-walled bilocular cystic lesion measuring 3.3 x 1.9 cm. Vagina: The vagina is normal in contour and wall thickness. Cervix: There is no evidence of mass or abnormal thickening. Peritoneal and Retroperitoneal Structures: No free fluid or abnormal fluid collections are identified within the abdomen or pelvis. No lymphadenopathy is noted. Bowel: The colon is moderately distended with fecal load. There is no evidence of wall thickening. Bones and Soft Tissues: The pelvic bones and soft tissues are unremarkable. No fractures or abnormal masses are identified. IMPRESSION: The urinary bladder is empty over a Rivers catheter with subtle smudged fat planes (newly seen). A small, non-enhancing lesion in the left uterine wall, most probably a myoma (newly seen); advise ultrasound correlation. A left ovarian bilocular cyst (newly seen). Mild hepatomegaly. Moderately distended colon with fecal impaction (regressive course). Electronically signed by Fam Jj 06-16-2025 01:52 AM MDM Narrative Prior records/ancillary studies reviewed and summarized above. Nursing notes reviewed. Additional history obtained from nursing. The patient's history was concerning for recurrent UTI Differential diagnosis: Etiologies such as complicated UTI, metabolic, infection, hypo/hyperglycemia, electrolyte abnormalities, cardiac sources, intracerebral event, toxicologic, neurologic, as well as others were entertained. Physical examination: As above. ER treatment provided: IV Lock An order was placed for continuous cardiac monitoring. The monitor shows a rate of 60-100 with a sinus rhythm per my interpretation. Daptomycin was ordered, IV fluids On reassessment the patient felt better. Diagnostics interpretation by me: The labs Independently Interpreted by myself revealed no worrisome leukocytosis, negative lactate, urine concern for possible infection and prior cultures were reviewed Blood cultures pending Prior urine cultures reviewed. Imaging studies: Imaging was reviewed and read by radiology Consultation: A consultation was placed with the hospitalist. The case was discussed and diagnostics were reviewed. The patient was evaluated in the ER for further treatment. Exam and history seem consistent with complicated recurrent UTI and constipation. Patient states she normally has 10 days worth of antibiotics and only received 7. Her symptoms of gotten worse and this is what prompted her back to the ER. Repeat cultures were drawn. Repeat urine was drawn. She was started antibiotics. Medicine was consulted case discussed. She will be evaluated for admission. By the evaluation outlined above emergent etiologies such as electrolyte abnormalities, cardiac sources, intracerebral event, toxologic, neurologic, abnormalities blood glucose, metabolic, as well as others were deemed relatively unlikely. The pt informed about the findings as listed above. All questions were answered and pleased with the treatment. The chart was completed utilizing [employer] Speech voice recognition software. Grammatical errors, random word insertions, pronoun errors, and incomplete sentences are an occassional consequence of this system due to software limitations, ambient noise, and hardware issues. Any formal questions or concerns about the content, text, or information contained within the body of this dictation should be directly addressed to the physician offset press assistant for clarification. Impression & Plan Complicated urinary tract infection, Paraplegia Discharge Plan Visit Data Chief Complaint: Urinary Symptoms Stated Complaint: URINARY SYMPTOMS ED Provider: Gavino Fuller ED Midlevel Provider: Raquel Dempsey Discharge Problem: Complicated urinary tract infection, Paraplegia Patient Disposition: Admitted As Inpatient Condition: Good Discharge Instructions Interventions: ED Discharge Assessment Last Done: 06/16/25 02:34 Forms Stand Alone Forms: [employer] [facility] Prescriptions Prescriptions: No Action gabapentin 800 mg tablet 800 mg PO TID ondansetron 4 mg tablet,disintegrating 4 mg PO Q4 PRN (Reason: n/v) baclofen 20 mg tablet 20 mg PO QID cephalexin 500 mg capsule 500 mg PO TID Rx Instructions: Start Date 04/18/2025 x90 day supply buprenorphine HCl 8 mg tablet, sublingual 8 mg SUBLINGUAL BID albuterol sulfate 90 mcg/actuation HFA aerosol inhaler 1 puff INHALATION Q4 PRN (Reason: Shortness Of Breath Or Wheezing) ibuprofen-acetaminophen [Advil Dual Action] 125-250 mg Tablet 2 tab PO QID Patient Comments: Unable to verify OTC meds at this date/time. 06/04/25 lidocaine 5 % adhesive patch,medicated 1 patch TOP DAILY PRN (Reason: pain) Qty: 15 0RF Rx Instructions: leave on most painful area for 12 hrs sennosides-docusate sodium [Senna-S] 8.6-50 mg Tablet 4 tab-cap PO AMHS polyethylene glycol 3350 [Miralax] 17 gram/dose Powder 17 g PO DAILY Referrals Referrals: Emiliano Marie [Primary Care Provider] -
[2025-06-15] MEDS: OPTIRAY 320 100ml IV ONE (23:31)
[2025-06-15 23:38] LABS: Appearance Urine Clear (Clear); Bacteria Urine Automated None Seen (None Seen); Cast Urine Automated 0-2 /lpf (0-2); Epithelial Cell Urine Auto 0-2 /hpf (0-2); Glucose Urine UA Negative (Negative); RBC Urine Automated 0-2 /hpf (0-2)
[2025-06-15 23:52] LABS: Hematocrit (blood only) 36.4 % (37.0-47.0); Hemoglobin 12.5 g/dl (12.0-16.0); Immature Granulocytes # (auto) 0.02 K/uL (0.01-0.20); Immature Granulocytes % (auto) 0.4 %; Mean Corpuscular Hemoglobin 32.1 pg (25.0-34.0); Mean Corpuscular Volume 93.3 fL (80.0-100.0); Platelet Count 313 K/uL (130-400); RDW Standard Deviation 40.9 fL (36.4-46.3); Red Blood Count 3.90 M/uL (4.20-5.40); White Blood Count 5.23 K/ul (4.8-10.8)
[2025-06-15] MEDS: SODIUM CHLORIDE 0.9% 1,000 ML IV SCH (23:57)
[2025-06-16] MEDS: DAPTOmycin 600 MG in SYRINGE 0 ML IV ONE (00:04)
[2025-06-16 00:09] LABS: Alanine Aminotransferase 10.0 U/L (7-52); Alkaline Phosphatase 45.0 U/L (34-104); Anion Gap 4.0 (3-11); Bilirubin,Total 0.2 mg/dl (0.2-1.0); Blood Urea Nitrogen 5.0 mg/dl (6-23); Calcium 9.1 mg/dl (8.6-10.3); Carbon Dioxide 30.0 mmol/L (21-32); Chloride 104.0 mmol/L (98-107); Creatinine Clr Calc Pharmacy 129.4 ml/min; Glucose 97.0 mg/dl (70-99(Fasting)); Magnesium 2.1 mg/dl (1.7-2.4); Potassium 4.1 mmol/L (3.5-5.1); Sodium 138.0 mmol/L (136-145); Total Protein 7.1 gm/dl (6.0-8.3)
[2025-06-16 00:34] LABS: Pregnancy Test, Serum Negative (Negative)
--- NOTE | 2025-06-16 01:52 | CT Scan Report ---
EXAM: CT abd pelvis IV con only CLINICAL HISTORY: Lower abd pain, indwelling rivers, freq UTIs TECHNIQUE: CT of the abdomen and pelvis was performed with and without contrast, using the following protocol: axial images were obtained and reconstructed into coronal and sagittal images. One of the following dose reduction techniques was utilized for this exam: automated exposure control, adjustment of the mA and/or kV according to patient size, and use of iterative reconstruction. COMPARISON: Compared to the previous study dated 03/28/2023, revising the previous KUB from 03/02/2025. FINDINGS: Abdomen: Liver: The liver is enlarged in size, measuring 18.7 cm, and has normal shape and density. No focal lesions, cysts, or masses are identified. The hepatic vasculature and biliary ducts are unremarkable. Gallbladder and Biliary System: The gallbladder is surgically removed, with a few metallic clips seen within the operative bed. Prominent intrahepatic biliary radicles are noted, most probably as postoperative sequelae. Pancreas: The pancreatic head, body, and tail are visualized and appear normal in size and density. No pancreatic masses or calcifications are noted. The pancreatic duct is not dilated. Spleen: The spleen is normal in size, shape, and density. No splenic lesions or masses are identified. Appendix: The appendix is normal in size, without periappendiceal fat stranding or appendicolith. There is no evidence of appendiceal abscess or perforation. Kidneys and Adrenal Glands: Both kidneys are normal in size and position. There is subtle bilateral cortical indentation; however, cortical thickness is within normal limits. No renal calculi or hydronephrosis are present. The adrenal glands are unremarkable, with no evidence of masses or hyperplasia. Pelvis: Urinary Bladder: The urinary bladder is empty over a Rivers catheter with subtle smudged fat planes. The bladder was markedly distended in the old study. Uterus: A small fibroid in the left uterine wall measures 1.2 cm. The uterus is normal in size and contour. There is no abnormal thickening. Ovaries: There is a left ovarian thin-walled bilocular cystic lesion measuring 3.3 x 1.9 cm. Vagina: The vagina is normal in contour and wall thickness. Cervix: There is no evidence of mass or abnormal thickening. Peritoneal and Retroperitoneal Structures: No free fluid or abnormal fluid collections are identified within the abdomen or pelvis. No lymphadenopathy is noted. Bowel: The colon is moderately distended with fecal load. There is no evidence of wall thickening. Bones and Soft Tissues: The pelvic bones and soft tissues are unremarkable. No fractures or abnormal masses are identified. IMPRESSION: The urinary bladder is empty over a Rivers catheter with subtle smudged fat planes (newly seen). A small, non-enhancing lesion in the left uterine wall, most probably a myoma (newly seen); advise ultrasound correlation. A left ovarian bilocular cyst (newly seen). Mild hepatomegaly. Moderately distended colon with fecal impaction (regressive course). Electronically signed by Fam Jj 06-16-2025 01:52 AM
--- NOTE | 2025-06-16 02:43 | History & Physical Report ---
Date of Service June 16, 2025 Assessment & Plan (1) Complicated urinary tract infection: (2) Constipation: (3) Paraplegia: (4) History of osteomyelitis: Plan 44yo female with paraplegia, chronic, indwelling catheter presenting with UTI. Patient had a urine culture from an outside facility that was reportedly positive for Enterococcus faecalis and Adeline. She was initially treated with Linezolid which she was not able to tolerate then Daptomycin. Ongoing concern for infection. Patient is afebrile, HD stable, non-toxic in appearance. UA does not suggest infection at this time -patient has been on antibiotics #UTI? -Culture ordered -Daptomycin for now -Consider ID consultation re: treatment of ID. Most cultures obtained here have been negative. Should not be treating increased urinary sediment as may not represent a true CAUTI -Will initiate Oxybutynin 5mg po BID -Pyridium PRN -Tylenol PRN -LR at 125mL/hr x 1L #Constipation - may be contributing to symptoms -Dulcolax VA -Miralax BID PRN -Continue Senna-Docusate #Paraplegia/History of osteomyelitis -Continue Baclofen -Continue Buprenorphine -Continue Cephalexin for treatment of osteomyelitis- -Continue Baclofen History of Present Illness Chief Complaint: UTI Primary Care Provider: Emiliano Ybarra is a 44yo female with history of paraplegia, T6-T7 osteomyelitis and T7-T8 epidural intervention with hardware in place and indwelling [place] catheter presenting with concern for UTI. Patient reports developing a UTI approximately one month ago. She had a urinalysis performed by her outpatient physician which was inconclusive - patient was treated with Cipro but her symptoms persisted. She was seen again by her PCP and had a culture performed on 05/24/25 which was POSITIVE for Enterococcus faecalis as well as Adeline albicans. She was initially started on Linezolid which she was unable to tolerate. She notified her doctor and was instructed to come to the ER for IV treatment. Patient was admitted to [facility] on 06/04 and treated with IV Daptomycin. She was ultimately discharged on 06/05 and set up with the [facility] and received 5 additional days of treatment (received 7 days total). She completed her Fluconazole as well. She returns today with complaint of increased urinary sediment, feeling the need to urinate and nerve pain in her legs. Also with nausea. Patient concerned that her UTI was not adequately treated. In the ER she is afebrile, HD stable ER Course: NSS x 1L Daptomycin 600mg IV Allergies Allergy/AdvReac Type Severity Reaction Status Date / Time naloxone Allergy Intermediate hives, Unverified 06/09/25 08:16 rash, upset stomach Home Medications Medication Instructions Recorded Confirmed Type ondansetron 4 mg disintegrating 4 mg PO Q4 PRN n/v 05/13/24 06/16/25 History tablet albuterol sulfate 90 mcg/actuation 1 puff inhalation Q4 PRN Shortness 10/04/24 06/16/25 History aerosol inhaler Of Breath Or Wheezing baclofen 20 mg tablet 20 mg PO QID 10/04/24 06/16/25 History buprenorphine HCl 8 mg sublingual 8 mg sublingual BID 10/04/24 06/16/25 History tablet cephalexin 500 mg capsule 500 mg PO TID 10/04/24 06/16/25 History ibuprofen 125 mg-acetaminophen 250 2 tab PO QID 03/02/25 06/16/25 History mg tablet (Advil Dual Action) lidocaine 5 % topical patch 1 patch topical DAILY PRN pain #15 04/16/25 06/16/25 Rx ea gabapentin 800 mg tablet 800 mg PO TID 06/04/25 06/16/25 History polyethylene glycol 3350 17 17 g PO DAILY 06/16/25 06/16/25 History gram/dose oral powder (Miralax) sennosides 8.6 mg-docusate sodium 4 tab-cap PO AMHS 06/16/25 06/16/25 History 50 mg tablet (Senna-S) Past Med/Surg History Problem List Acute hyponatremia History of osteomyelitis Paraplegia (Acute) Anxiety state (Acute) Complicated urinary tract infection (Acute) Medical History History of intravenous drug abuse Pressure ulcer Scarring of lung IV drug abuse Surgical History No pertinent past surgical history Social History Smoking Status: Current every day smoker Tobacco Type: Cigarettes Cigarettes Per Day: 1-2 cigarettes; Second Hand Exposure: No; Do You Dip or Chew Tobacco: No; Hx Alcohol Use: No Hx Substance Use: Yes Non-Prescribed Medications: Heroin Non-Prescribed Medications Comment: fentanyl Last Used Substance: Days (ago) Last Used Substance Other:: 06/03/25 Substance Use Type Other:: medical marijuana Preferred Language: Korean Communication Ability: Effective Paediatrician Required: No Beliefs That Will Affect Care: None Current Living Situation: Other Current Living Situation Comment: Roommates Feels Safe at Home: Yes Assistive Devices: Wheelchair and Other Review of Systems Review of Systems: All systems reviewed & are unremarkable except as noted in HPI & below Physical Exam Physical Exam: General: patient resting comfortably, NAD, non-toxic in appearance, AA&O x 4 Skin: warm, dry, intact, no rashes or lesions HEENT: NC/AT, PERRL, EOMI, anicteric sclera, conjunctiva without injection, external ear normal to inspection and nontender, nares patent, moist mucus membranes, dentition intact, no oropharyngeal lesions, neck supple, trachea midline, no LAD, no thyromegaly, no JVD Heart: +S1/S2, regular, no m/r/g Lungs: equal air entry bilaterally, no rales/rhonchi/wheezes Abd: +BS, soft, NT/ND, no masses/organomegaly/ascites Rivers in place Ext: warm, 2+ pulses in UE/LE bilaterally, no clubbing/cyanosis or edema Neuro: paraplegic Results & Data Results & Data Vital Signs (Past 12 Hours) Vital Signs Temp Pulse Pulse Resp BP BP Pulse Ox 06/16/25 02:31 73 20 103/59 L 99 06/16/25 02:00 72 14 105/67 99 06/16/25 01:45 75 20 102/61 98 06/16/25 01:30 73 16 104/71 99 06/16/25 01:00 81 20 93/58 L 99 06/16/25 00:45 71 14 100/55 L 100 06/16/25 00:02 73 20 125/81 99 06/15/25 23:30 73 20 123/77 100 06/15/25 23:21 100 06/15/25 23:16 73 20 127/73 100 06/15/25 22:51 36.5 C 99 H 18 140/81 99 O2 Del Method 06/16/25 02:31 Room Air 06/16/25 02:00 Room Air 06/16/25 01:45 Room Air 06/16/25 01:30 Room Air 06/16/25 01:00 Room Air 06/16/25 00:45 Room Air 06/16/25 00:02 Room Air 06/15/25 23:30 Room Air 06/15/25 23:21 Room Air 06/15/25 23:16 Room Air 06/15/25 22:51 Room Air Laboratory Results Laboratory Results WBC 5.23 K/ul (4.8-10.8) 06/15/25 23:33 RBC 3.90 M/uL (4.20-5.40) L 06/15/25 23:33 Hgb 12.5 g/dl (12.0-16.0) 06/15/25 23:33 Hct 36.4 % (37.0-47.0) L 06/15/25 23:33 MCV 93.3 fL (80.0-100.0) 06/15/25 23:33 MCH 32.1 pg (25.0-34.0) 06/15/25 23:33 MCHC 34.3 g/dL (32.0-36.0) 06/15/25 23:33 RDW Std Deviation 40.9 fL (36.4-46.3) 06/15/25 23:33 RDW Coeff of Paulo 11.9 % (11.5-14.5) 06/15/25 23:33 Plt Count 313 K/uL (130-400) 06/15/25 23:33 MPV 9.8 fL (9.4-12.4) 06/15/25 23:33 Immature Gran % (Auto) 0.4 % 06/15/25 23:33 Neut % (Auto) 54.5 % 06/15/25 23:33 Lymph % (Auto) 33.8 % 06/15/25 23:33 [place] % (Auto) 9.4 % 06/15/25 23:33 Eos % (Auto) 1.7 % 06/15/25 23:33 Baso % (Auto) 0.2 % 06/15/25 23:33 Neut # (Auto) 2.85 K/uL (1.40-6.50) 06/15/25 23:33 Lymph # (Auto) 1.77 K/uL (1.20-3.40) 06/15/25 23:33 [place] # (Auto) 0.49 K/uL (0.11-0.59) 06/15/25 23:33 Eos # (Auto) 0.09 K/uL (0.00-0.50) 06/15/25 23:33 Baso # (Auto) 0.01 K/uL (0.00-0.20) 06/15/25 23:33 Immature Gran # (Auto) 0.02 K/uL (0.01-0.20) 06/15/25 23:33 Sodium 138 mmol/L (136-145) 06/15/25 23:33 Potassium 4.1 mmol/L (3.5-5.1) 06/15/25 23:33 Chloride 104 mmol/L (98-107) 06/15/25 23:33 Carbon Dioxide 30 mmol/L (21-32) 06/15/25 23:33 Anion Gap 4 (3-11) 06/15/25 23:33 BUN 5 mg/dl (6-23) L 06/15/25 23:33 Creatinine 0.53 mg/dl (0.6-1.2) L 06/15/25 23:33 Est Cr Clr Drug Dosing 129.4 ml/min 06/15/25 23:33 eGFR 118.34 06/15/25 23:33 BUN/Creatinine Ratio 9.4 (10-20) L 06/15/25 23:33 Glucose 97 mg/dl (70-99(Fasting)) 06/15/25 23:33 Lactate 0.7 mmol/L (0.4-2.0) 06/15/25 23:34 Calcium 9.1 mg/dl (8.6-10.3) 06/15/25 23:33 Magnesium 2.1 mg/dl (1.7-2.4) 06/15/25 23:33 Total Bilirubin 0.2 mg/dl (0.2-1.0) 06/15/25 23:33 Direct Bilirubin 0.0 mg/dl (0-0.2) 06/15/25 23:33 AST 13 U/L (13-39) 06/15/25 23:33 ALT 10 U/L (7-52) 06/15/25 23:33 Alkaline Phosphatase 45 U/L (34-104) 06/15/25: Total Protein 7.1 gm/dl (6.0-8.3) 06/15/25: Albumin 4.3 gm/dl (3.4-5.0) 06/15/25: Procalcitonin < 0.02 ng/ml (0-0.5) 06/15/25: HCG, Qual Negative (Negative) 06/15/25: Urine Color Yellow 06/15/25: Urine Appearance Clear (Clear) 06/15/25: Urine pH 6.5 (4.5-7.5) 06/15/25: Ur Specific [place] 1.006 (1.000-1.030) 06/15/25: Urine Protein Negative (Negative) 06/15/25: Urine Glucose (UA) Negative (Negative) 06/15/25: Urine Ketones Negative (Negative) 06/15/25: Urine Blood Trace (Negative) H 06/15/25: Urine Nitrite Negative (Negative) 06/15/25: Urine Bilirubin Negative (Negative) 06/15/25: Urine Urobilinogen Negative (Negative) 06/15/25: Ur Leukocyte Esterase 1+ (Negative) H 06/15/25 23:25 Urine WBC (Auto) 6-10 /hpf (0-5) H 06/15/25: Urine RBC (Auto) 0-2 /hpf (0-2) 06/15/25: U Hyaline Cast (Auto) 0-2 /lpf (0-2) 06/15/25: U Epithel Cells (Auto) 0-2 /hpf (0-2) 06/15/25: Urine Bacteria (Auto) None Seen (None Seen) 06/15/25: Urine Comment 06/15/25: Impressions Abdomen/Pelvis CT 06/15/25 23:18 EXAM: CT abd pelvis IV con only CLINICAL HISTORY: Lower abd pain, indwelling rivers, freq UTIs TECHNIQUE: CT of the abdomen and pelvis was performed with and without contrast, using the following protocol: axial images were obtained and reconstructed into coronal and sagittal images. One of the following dose reduction techniques was utilized for this exam: automated exposure control, adjustment of the mA and/or kV according to patient size, and use of iterative reconstruction. COMPARISON: Compared to the previous study dated 03/28/2023, revising the previous KUB from 03/02/2025. FINDINGS: Abdomen: Liver: The liver is enlarged in size, measuring 18.7 cm, and has normal shape and density. No focal lesions, cysts, or masses are identified. The hepatic vasculature and biliary ducts are unremarkable. Gallbladder and Biliary System: The gallbladder is surgically removed, with a few metallic clips seen within the operative bed. Prominent intrahepatic biliary radicles are noted, most probably as postoperative sequelae. Pancreas: The pancreatic head, body, and tail are visualized and appear normal in size and density. No pancreatic masses or calcifications are noted. The pancreatic duct is not dilated. Spleen: The spleen is normal in size, shape, and density. No splenic lesions or masses are identified. Appendix: The appendix is normal in size, without periappendiceal fat stranding or appendicolith. There is no evidence of appendiceal abscess or perforation. Kidneys and Adrenal Glands: Both kidneys are normal in size and position. There is subtle bilateral cortical indentation; however, cortical thickness is within normal limits. No renal calculi or hydronephrosis are present. The adrenal glands are unremarkable, with no evidence of masses or hyperplasia. Pelvis: Urinary Bladder: The urinary bladder is empty over a Rivers catheter with subtle smudged fat planes. The bladder was markedly distended in the old study. Uterus: A small fibroid in the left uterine wall measures 1.2 cm. The uterus is normal in size and contour. There is no abnormal thickening. Ovaries: There is a left ovarian thin-walled bilocular cystic lesion measuring 3.3 x 1.9 cm. Vagina: The vagina is normal in contour and wall thickness. Cervix: There is no evidence of mass or abnormal thickening. Peritoneal and Retroperitoneal Structures: No free fluid or abnormal fluid collections are identified within the abdomen or pelvis. No lymphadenopathy is noted. Bowel: The colon is moderately distended with fecal load. There is no evidence of wall thickening. Bones and Soft Tissues: The pelvic bones and soft tissues are unremarkable. No fractures or abnormal masses are identified. IMPRESSION: The urinary bladder is empty over a Rivers catheter with subtle smudged fat planes (newly seen). A small, non-enhancing lesion in the left uterine wall, most probably a myoma (newly seen); advise ultrasound correlation. A left ovarian bilocular cyst (newly seen). Mild hepatomegaly. Moderately distended colon with fecal impaction (regressive course). Electronically signed by Fam Jj 06-16-2025 01:52 AM PG Care Time/CCT Total # of Minutes Spent Total Time Spent with Patient: Total time spent is greater than 50% in coordination of care (as documented) at patient's floor/unit and/or counseling patient: Coding Level of Care Code 68681 INT INP/OBS CARE 3/75MIN Diagnoses Complicated urinary tract infection N39.0 Constipation K59.00 Constipation type: unspecified constipation type Paraplegia G82.20 History of osteomyelitis Z87.39 (2) Constipation Constipation type: unspecified constipation type Qualified Code(s): K59.00 - Constipation, unspecified
[2025-06-16] MEDS: LACTATED RINGER'S 1,000 ML IV SCH (02:48)
[2025-06-16] MEDS ORDERED: ONDANSETRON INJ 2 MG/ML 2 ML VIAL IV PRN (02:48)
[2025-06-16] MEDS ORDERED: PHENAZOPYRIDINE HCL 100 MG TAB PO PRN (02:48)
[2025-06-16] MEDS ORDERED: MELATONIN 3 MG TAB PO PRN (02:48)
[2025-06-16] MEDS ORDERED: ACETAMINOPHEN 325 MG TAB PO PRN (02:48)
[2025-06-16] MEDS ORDERED: LIDOCAINE 5% 1 PATCH TD PRN (03:12)
[2025-06-16] MEDS ORDERED: ALBUTEROL HFA 8 GM INHALER INH PRN (03:12)
[2025-06-16] MEDS: POLYETHYLENE (MIRALAX) 17 GM PACK PO SCH (08:12)
[2025-06-16] MEDS: BACLOFEN 20 MG TAB PO SCH (08:13)
[2025-06-16] MEDS: DOCUSATE SODIUM/SENNA 50/8.6MG TAB PO SCH (08:13)
[2025-06-16] MEDS: GABAPENTIN 800 MG TAB PO SCH (08:13)
[2025-06-16] MEDS ORDERED: Nursing to Pharmacy Communication SCH ×2 (13:00→16:15)
[2025-06-16] MEDS: LIDOCAINE 5% 1 PATCH TD SCH (20:33)
[2025-06-16] MEDS ORDERED: REMOVE LIDODERM PATCH SCH (21:00)
[2025-06-16] MEDS: DAPTOmycin 350 MG in SYRINGE 0 ML IV SCH (21:01)
[2025-06-17 07:12] LABS: Hematocrit (blood only) 34.3 % (37.0-47.0); Hemoglobin 11.2 g/dl (12.0-16.0); Mean Corpuscular Hemoglobin 30.9 pg (25.0-34.0); Mean Corpuscular Volume 94.8 fL (80.0-100.0); Platelet Count 270 K/uL (130-400); RDW Standard Deviation 41.9 fL (36.4-46.3); Red Blood Count 3.62 M/uL (4.20-5.40); White Blood Count 4.10 K/ul (4.8-10.8)
[2025-06-17 07:33] VITALS: BP 89/57; PULSE 70; RESP 14; TEMP 97.9; O2SAT 98
[2025-06-17 07:44] LABS: Anion Gap 3.0 (3-11); Blood Urea Nitrogen 5.0 mg/dl (6-23); Calcium 8.5 mg/dl (8.6-10.3); Carbon Dioxide 28.0 mmol/L (21-32); Chloride 109.0 mmol/L (98-107); Creatinine Clr Calc Pharmacy 134.5 ml/min; Glucose 91.0 mg/dl (70-99(Fasting)); Potassium 4.2 mmol/L (3.5-5.1); Sodium 140.0 mmol/L (136-145)
[2025-06-17] MEDS: REMOVE LIDODERM PATCH SCH (08:59)
--- NOTE | 2025-06-17 10:09 | Discharge Summary ---
Date of Service June 17, 2025 Admission HPI Per Admitting Provider Sona Ybarra is a 44yo female with history of paraplegia, T6-T7 osteomyelitis and T7-T8 epidural intervention with hardware in place and indwelling [place] catheter presenting with concern for UTI. Patient reports developing a UTI approximately one month ago. She had a urinalysis performed by her outpatient physician which was inconclusive - patient was treated with Cipro but her symptoms persisted. She was seen again by her PCP and had a culture performed on 05/24/25 which was POSITIVE for Enterococcus faecalis as well as Adeline albicans. She was initially started on Linezolid which she was unable to tolerate. She notified her doctor and was instructed to come to the ER for IV treatment. Patient was admitted to [facility] on 06/04 and treated with IV Daptomycin. She was ultimately discharged on 06/05 and set up with the [facility] and received 5 additional days of treatment (received 7 days total). She completed her Fluconazole as well. She returns today with complaint of increased urinary sediment, feeling the need to urinate and nerve pain in her legs. Also with nausea. Patient concerned that her UTI was not adequately treated. In the ER she is afebrile, HD stable ER Course: NSS x 1L Daptomycin 600mg IV Admission Exam (Per Admitting) Constitutional The patient is awake, alert and oriented 3, well developed and well nourished, normocephalic and atraumatic, lying in bed and in no acute distress. HEENT--PERRL, EOMI, mucous membranes and oropharynx mildly dry Neck--supple. No JVD. No bruits. Thyroid normal, trachea midline, no adenopathy. Heart--normal S1 and S2. No murmurs, rubs or gallops. Lungs--clear bilaterally, no respiratory distress, no accessory muscle use. Abdomen--normal bowel sounds and soft. Extremities--no cyanosis or clubbing. No edema. Dermatologic--normal skin turgor, normal color, no abnormal lymph nodes, no rash. Neurologic--paraplegic Rheumatologic--normal range of motion. Psychiatric--normal affect. Discharge Data Consultations 06/16/25 01:57 ED Decision to Admit Stat Hospital Course (1) Complicated urinary tract infection: (2) Constipation: (3) Paraplegia: (4) History of osteomyelitis: Plan 44yo female with paraplegia, chronic, indwelling catheter presenting with UTI. Patient had a urine culture from an outside facility that was reportedly positive for Enterococcus faecalis and Adeline. She was initially treated with Linezolid which she was not able to tolerate then Daptomycin. Ongoing concern for infection. Patient is afebrile, HD stable, non-toxic in appearance. UA does not suggest infection at this time -patient has been on antibiotics #UTI? -Culture ordered, negative so far -She has completed antibiotics, no need for more -D/C home #Constipation - may be contributing to symptoms -Dulcolax [place] -Miralax BID PRN -Continue Senna-Docusate #Paraplegia/History of osteomyelitis -Continue Baclofen -Continue Buprenorphine -Continue Cephalexin for treatment of osteomyelitis- -Continue Baclofen Coding Level of Care Code 05743 INP/OBS DISCH >30 MIN Diagnoses Complicated urinary tract infection N39.0 Constipation K59.00 Constipation type: unspecified constipation type Paraplegia G82.20 History of osteomyelitis Z87.39 Time Spent (min) 35
== END 2025-06-17 13:20 | disposition home or self-care (01) | DRG 690 ==
LOC: SUATTDRO → 3N 22:48 → ED 22:48 → 3N 06-16 02:34